=== PATIENT | female | born 1940 | race Caucasian/White ===

== ENCOUNTER → 2024-01-12 08:01 | Outpatient (REF) | payer MEDICARE, SELFPAY ==
[2024-01-12 11:39] LABS: % Basophils 1.3 % (0-2); % Eosinophils 5.6 % (0-6); % Immature Granulocytes 0.4 % (0-0.5); % Lymphocytes 28.6 % (20.5-51.1); % Monocytes 13.6 % (1.7-9.3); % Neutrophils 50.5 % (42.2-75.2); Absolute Basophils 0.1 10^3/uL (0-0.2); Absolute Eosinophils 0.3 10^3/uL (0-0.7); Absolute Lymphocytes 1.3 10^3/uL (1.2-3.4); Absolute Monocytes 0.6 10^3/uL (0.1-0.6); Absolute Neutrophils 2.3 10^3/uL (1.4-6.5); Hematocrit 38.8 % (37.0-47.0); Hemoglobin 12.6 g/dL (12.0-16.0); Mean Corp Hgb Conc. 32.5 g/dL (33.0-37.0); Mean Corpuscular Hgb 33.7 pg (27.0-31.0); Mean Corpuscular Volume 103.7 fL (81.0-99.0); Mean Platelet Volume 10.8 fL (7.4-10.4); Nucleated Red Blood Cells % 0 %; Platelet Count 158 10^3/uL (130-400); Red Blood Cell Count 3.74 10^6/uL (4.20-5.40); Red Cell Dist. Width 12.8 % (11.5-14.5); White Blood Cell Count 4.5 10^3/uL (4.8-10.8)
[2024-01-12 11:54] LABS: ALT (SGPT) < 10 U/L (0-35); AST (SGOT) 20 U/L (14-36); Alkaline Phosphatase 69 U/L (38-126); Blood Urea Nitrogen 22 mg/dl (7-17); Calcium 9.4 mg/dl (8.4-10.2); Carbon Dioxide 27 mmol/L (22-30); Chloride 102 mmol/L (98-107); Glucose 97 mg/dl (70-99); HDL Cholesterol 51 mg/dl; LDL Cholesterol, Calculated 47 mg/dl; Potassium 4.3 mmol/L (3.5-5.1); Sodium 138 mmol/L (135-145); Total Bilirubin 0.8 mg/dl (0.2-1.3); Total Cholesterol 117 mg/dl (50-199); Total Protein 6.9 g/dl (6.3-8.2); Triglyceride 98 mg/dl (10-149); Very Low Density Lipoprotein 19 mg/dl (0-30); eGFR 56.25
[2024-01-12 12:29] LABS: Glycohemoglobin (HgbA1c) 5.7 % (4.0-5.6)
== END ==
LOC: HWLAB 08:01
PROVIDERS: ATTENDING PHYSICIAN Emergency Medicine
DX: E05.00 Thyrotoxicosis with diffuse goiter without thyrotoxic crisis or storm (principal); I44.7 Left bundle-branch block, unspecified; J44.9 Chronic obstructive pulmonary disease, unspecified; E78.00 Pure hypercholesterolemia, unspecified; I50.32 Chronic diastolic (congestive) heart failure; M85.80 Other specified disorders of bone density and structure, unspecified site; I25.10 Atherosclerotic heart disease of native coronary artery without angina pectoris
CPT/HCPCS: 36415; 80053; 80061; 83036; 85025

== ENCOUNTER → 2024-05-05 10:17 | Outpatient (REF) | payer MEDICARE, SELFPAY ==
[2024-05-05 12:46] LABS: Free T4 1.16 ng/dl (0.78-2.19)
[2024-05-05 12:53] LABS: TSH 3.36 uIU/ml (0.47-4.68)
== END ==
LOC: HWRAD 10:17
PROVIDERS: ATTENDING PHYSICIAN Internal Medicine Endocrinology, Diabetes & Metabolism; FAMILY PHYSICIAN Emergency Medicine
DX: E04.2 Nontoxic multinodular goiter (principal)
CPT/HCPCS: 36415; 76536; 84439; 84443

== ENCOUNTER 2024-07-13 18:14 | Inpatient (IN) | payer MEDICARE, SELFPAY ==
[2024-07-13] VITALS (8 sets, daily range): BP systolic 100–172; BP diastolic 71–107; BMI 22.0; BMI 20.9
[2024-07-13 14:50] LABS: % Basophils 0.8 % (0-2); % Eosinophils 5.2 % (0-6); % Immature Granulocytes 0.4 % (0-0.5); % Lymphocytes 20.7 % (20.5-51.1); % Monocytes 14.1 % (1.7-9.3); % Neutrophils 58.8 % (42.2-75.2); Absolute Eosinophils 0.3 10^3/uL (0-0.7); Absolute Lymphocytes 1.1 10^3/uL (1.2-3.4); Absolute Monocytes 0.7 10^3/uL (0.1-0.6); Absolute Neutrophils 3.1 10^3/uL (1.4-6.5); Hematocrit 36.1 % (37.0-47.0); Hemoglobin 11.9 g/dL (12.0-16.0); Mean Corpuscular Hgb 33.6 pg (27.0-31.0); Mean Platelet Volume 9.9 fL (7.4-10.4); Nucleated Red Blood Cells % 0 %; Platelet Count 201 10^3/uL (130-400); Red Blood Cell Count 3.54 10^6/uL (4.20-5.40); Red Cell Dist. Width 12.4 % (11.5-14.5); White Blood Cell Count 5.2 10^3/uL (4.8-10.8)
[2024-07-13 15:27] LABS: ALT (SGPT) < 10 U/L (0-35); AST (SGOT) 19 U/L (14-36); Albumin 3.5 g/dl (3.5-5.0); Alkaline Phosphatase 68 U/L (38-126); Blood Urea Nitrogen 15 mg/dl (7-17); Calcium 8.8 mg/dl (8.4-10.2); Carbon Dioxide 28 mmol/L (22-30); Chloride 97 mmol/L (98-107); Estimated Creatinine Clearance 51 ml/min; Glucose 121 mg/dl (70-99); Potassium 3.6 mmol/L (3.5-5.1); Sodium 136 mmol/L (135-145); Total Bilirubin 0.5 mg/dl (0.2-1.3); Total Protein 6.4 g/dl (6.3-8.2); eGFR > 60.00
--- NOTE | 2024-07-13 15:39 | ED.GENMED ---
History of Present Illness
General
Chief Complaint: Breathing Problem
Source: patient
Exam Limitations: none
Time Seen by Provider: 07/13/24 15:08
Nursing documentation reviewed up to this point in time: agreed with
History of Present Illness
History of Present Illness:
Patient to ED with complaint of increasing SOB. States symptoms started approx 3 weeks ago. SHe was seen in office of PCP and treated for pneumonia. Was placed on amoxicillin and mucinex. Finished antibiotic on wednesday but notes not improvement
in her symptoms. Reports weakness, Dyspnea with minimal activity. Denies fever/chills. Called PCP today but was told there were no appointments available, advised to come to ED. Brought to ED by neighbor for eval.
Past History
Past History
ED Past Medical History: Arrthythmia (Atrial fib), COPD, GERD, HTN, Hypercholesterolemia, Hypothyroidism, Other (Nasal polyps, sinusitis, asthma, ischemic colitis, DVT,) and Other (Patient has a history of chronic bronchitis, she is an ex-smoker, as
to gastroenteritis, stress incontinence, arthritis, and impaired vision, depression, and deviated septum, as well as fluid retention, history of neuropathy, and iron allergies. )
ED Past Surgical History: None
Social History
Tobacco: Former smoker
Alcohol: Occasional
Personal:
Living: alone
Employment: Retired
Review of Systems
Review of Systems
Allergies reviewed?: Yes
All Other Systems: ROS reviewed and negative except as documented in HPI and ROS
Constitutional: Reports fatigue
EENT: Reports no symptoms
Respiratory: Reports cough and trouble breathing
Cardiac: Reports no symptoms
ABD/GI: Reports no symptoms
: Reports no symptoms
Musculoskeletal: Reports no symptoms
Skin: Reports no symptoms
Neurological: Reports weakness
Psychiatric: Reports no symptoms
Phy Exam
General Physical Exam
General Presentation: moderate distress
General age: appears stated age
General Skin: warm and dry
General Habitus: normal
General Mental: alert
Cardiovascular Exam
Cardiovascular Exam: irregularly irregular (chronic afib)
Pulmonary Exam
Pulmonary Exam: decreased breath sounds
Respiratory Effort: tachypnea
Gastrointestinal Exam
Gastrointestinal Exam: normal bowel sounds, non tender and soft
Musculoskeletal Exam
Musculoskeletal Exam: full ROM and neuro vasc intact
Skin Exam
Skin Exam: normal color, warm/dry and no rash
Psychiatric Exam
Psychiatric Exam: normal mood/affect
Scores
Heart Failure Risk
Heart Failure Risk Score: Not Applicable
Course
Orders/Labs/Results
Orders:
Orders
07/13/24 14:26
Electrocardiogram (*1) Urgent
Reason for Study: Shortness of Breath
07/13/24 14:27
EKG- Treatment ONCE
07/13/24 14:42
CMP [Comprehensive Metabolic Panel] Urgent
Complete Blood Count/With Diff Urgent
Lipase Urgent
Comment: ADD ON
07/13/24 14:44
CXR2 [CR Chest - 2 Views ] Urgent
Comment:
Reason For Exam: SOB
07/13/24 Dinner
Cholesterol Lowering
At Your Request: Full Participation
Fluid Restriction: 1440 mL/day (48 oz)
Cholesterol Lowering: Sodium, 2 Gram
07/13/24 15:22
Add On- LAB Urgent
Tests Added?: lipase
07/13/24 15:43
Ipratropium/Albuterol Sulfate [Duoneb] 3 ml INH R NOW STA
07/13/24 15:49
COVID-19 Antigen Urgent
Source: Nasal Swab
Influenza A+B Rapid Molecular Urgent
NUNO Source: Nasal Swab
Specimen Description:
07/13/24 16:03
Azithromycin [Zithromax] 500 mg PO NOW STA
CefTRIAXone [Rocephin] 1,000 mg IV NOW STA
07/13/24 17:51
Furosemide [Lasix] 40 mg IV NOW STA
Potassium Chloride [KCl] 40 meq PO NOW STA
07/13/24 17:56
Admit/Transfer Patient As Directed
Co-Sign Provider:
Level of Care: Inpatient admission
Assign to:: Telemetry
Physician / Group: Lyudmila Wilson
Diagnosis: heart failure, pneumonia
Reason for Telemetry: Pulmonary Edema
Date to Stop Telemetry: 07/16/24
Time to Stop Telemetry: 11:00
Reason for Hospitalization: heart failure, pneumonia
Expected length of stay greater than two midnights?: Yes
ELOS- Estimated Length of Stay in days: 3
I certify the patient meets the requirements for IP care: Yes
PRN Pain Medication Management As Directed
May give lesser potent ordered pain med per pt: Yes
preference::
Protocol:: Medication orders for pain may be administered in a
manner that supports deferring to patient preference
when the pt is:
- Requesting an ordered lesser potent pain medication.
Least to most potent pain medications are defined
as: acetaminophen < NSAID < tramadol < opioids
(morphine, oxycodone, hydromorphone).
- Requesting a lesser dose of the same medication IF
ORDERED.
- Requesting a less intrusive route of administration
if both routes are prescribed by the provider (PO <
IV).
07/13/24 17:57
Code Status As Directed
Resuscitation Status: Full Code
07/13/24 18:07
BNP [NT-proBNP] Urgent
Procalcitonin Routine
PCT Algorithmm Indication: Respiratory
Troponin I Urgent
07/13/24 18:47
Aspirin Low Dose EC [Aspir Low (Enteric Coated)] 81 mg PO QPM
Bisacodyl [Dulcolax] 10 mg RECTAL [id number] PRN
Docusate W/Senna [Senokot-S] 1 tablet PO BIDPRN PRN
Ipratropium/Albuterol Sulfate [Duoneb] 3 ml INH R Q4HPRN PRN
Polyethylene Glycol Powder [Miralax] 17 grams PO DAILYPRN PRN
07/13/24 18:47
HF DIETARY CONSULT Routine
HF EDUCATOR CONSULT Routine
Comment:
Activity As Directed
Activity Level: As Tolerated
Intake/ Output As Directed
Frequency: Per unit guidelines
Patient Education As Directed
Type: CHF folder
Comment: give on admission. Document in Interdisciplinary Education record
Sleep Apnea Assessment by RN As Directed
Comment:
Physician Instructions:
Vital Signs As Directed
Frequency: Other
Additional Instructions:: Q12 or per unit guidelines if more frequent.
Weight As Directed
Frequency: Daily
Type of Scale: Standing Scale
Comment: Daily morning weight. If unable to stand, use balanced bed scale.
Weight As Directed
Frequency: Once
Type of Scale: Standing Scale
Comment: Upon Admission. If unable to stand, use balanced bed scale.
Acapella [Rx Pep / Acapela] [RESP] Routine
Pulse Ox/cont/shift [RESP] Routine
Quantity: 1
Special Instructions: Daily pulse oximetry at rest. If greater than 92% at rest also obtain pulse oximetry
while ambulating as tolerated.
07/13/24 20:00
Apixaban [Eliquis] 5 mg PO BID
Carvedilol [Coreg] 3.125 mg PO BID
Guaifenesin [Mucinex] 600 mg PO Q12
Ipratropium/Albuterol Sulfate [Duoneb] 3 ml INH R QID
07/13/24 22:00
Losartan [Cozaar] 50 mg PO HS
07/14/24 00:00
Acetaminophen [Tylenol] 650 mg PO Q6
07/14/24 06:00
Echo 2D MMode Color/Doppler IN AM
Reason for Study: heart failure
Basic Metabolic Panel IN AM
Cardiovascular Evaluation IN AM
Complete Blood Count/No Diff IN AM
Magnesium IN AM
TSH IN AM
07/14/24 08:00
Atorvastatin [Lipitor] 40 mg PO DAILY
Furosemide [Lasix] 40 mg IV DAILY
07/14/24 16:00
Azithromycin [Zithromax] 500 mg PO DAILY@1600
CefTRIAXone [Rocephin] 1,000 mg IV DAILY@1600
07/15/24 06:00
Basic Metabolic Panel IN AM
07/16/24 06:00
Basic Metabolic Panel IN AM
07/16/24 11:00
DC Protocol for Telemetry ONCE
Abnormal Lab Results
07/13/24
14:42
RBC 3.54 L 10^6/uL
(4.20-5.40)
Hgb 11.9 L g/dL
(12.0-16.0)
Hct 36.1 L %
(37.0-47.0)
MCV 102.0 H fL
(81.0-99.0)
MCH 33.6 H pg
(27.0-31.0)
Absolute Lymphs (auto) 1.1 L 10^3/uL
(1.2-3.4)
Absolute Monos (auto) 0.7 H 10^3/uL
(0.1-0.6)
Monocytes % 14.1 H %
(1.7-9.3)
Chloride 97 L mmol/L
(98-107)
Glucose 121 H mg/dl
(70-99)
07/13/24 14:42
07/13/24 14:42
Vital Signs
Initial and Last Documented VS:
Initial Vital Signs
Temp Pulse Resp BP Pulse Ox
97.6 F 77 24 149/91 98
07/13/24 14:08 07/13/24 14:08 07/13/24 14:08 07/13/24 14:08 07/13/24 14:08
Last Documented Vital Signs
Temp Pulse Resp BP Pulse Ox
97.5 F 86 18 172/107 91
07/13/24 19:55 07/13/24 19:55 07/13/24 19:55 07/13/24 19:55 07/13/24 20:00
MDM/Problems Addressed
Differential Diagnosis Includes:
Patient to ED with complaint of SOB, BAUTISTA with minimal activity. Treated for pneumonia 1.5 weeks ago with amoxicillin without improvement. CXR reviewed - suspect RLL pneumonia. Overall, lungs sounds are decreased. Given Duoneb. Pulse ox 94% RA at
rest, 84% with activity. Afebrile. Will admit to hospitalists service. Ceftriaxone, azithromycin given in dept.
*Radiology
Radiology exam reviewed: radiology read reviewed
*Pulse Oximetry
Patient hypoxic: yes
Comment: 84% RA with ambulation
*Critical Care Note
Total Time (30-74mins, 75-104mins- exclusive of procedures): Not Applicable
ED Attending Note
-
Portions of this chart may have been created with voice recognition software.� Occasional wrong word or��sound alike� substitutions may have occurred due to the inherent limitations of voice recognition software.
Discharge Plan
Departure
Patient Disposition: Admit
Date of Disposition: 07/13/24
Time of Disposition: 16:35
Presentation/result/management discussed w/ accepting MD/DO: Hospitalist
Condition: Fair
Covid-19: Negative COVID-19
Discharge Problem:
Pneumonia
Interventions
Interventions:
*Risk Screen - Suicide Last Done: 07/13/24 14:08
*General Assessment Last Done: 07/13/24 14:28
ED- Fall Risk Assessment Last Done: 07/13/24 14:28
*ED COVID-19 Vaccine History Last Done: 07/13/24 14:28
*Nursing Disposition Last Done: 07/13/24 18:41
ED- Cardiac Assessment Last Done: 07/13/24 14:28
ED- Pulmonary Assessment Last Done: 07/13/24 14:28
Discharge Date and Time
Discharge Date/Time: 07/13/24 18:41
[2024-07-13] MEDS: DUONEB 3 ML INH ×2 (15:49→19:31)
[2024-07-13] MEDS: ROCEPHIN 1000 MG IV (16:18)
[2024-07-13] MEDS: ZITHROMAX 500 MG PO (16:18)
[2024-07-13 16:21] LABS: COVID-19 Antigen Negative (Negative)
[2024-07-13 16:31] LABS: Lipase 56 U/L (23-300)
--- NOTE | 2024-07-13 17:24 | HPS.HSE ---
Addendum entered and electronically signed by Lyudmila Wilson MD 07/13/24 19:41:
procalcitonin negative - will stop antibiotics
Original Note:
Family Physician
-
Family Physician: Diana Bone MD
Chief Complaint
-
worsening shortness of breath
History of Present Illness
Ms. Earnestine Minor is a 83 yo woman with history of atrial fibrillation, COPD, GERD, essential HTN, HLD, HFrEF 40% (03/14); moderate MR, presents to the ER with 3 weeks of worsening shortness of breath. Patient was treated for pneumonia by PCP and
completed a course of Amoxicillin and Mucinex 2 days ago without improvement in symptoms.
Patient reports upper nasal congestion, does not report congestion in chest. She denies cough, reports significant shortness of breath especially with exertion. No chest pain. No fevers/chills. No nausea/vomiting/diarrhea. No abdominal pain or
LE swelling. She weighs herself daily and does not report weight gain.
She quit smoking 4 years ago. Reports the duonebs given in the ER helped her feel better.
Medical History
Past Medical History
Past Medical History: Reports Other (atrial fibrillation, COPD, GERD, essential HTN, HLD, Hypothyroidism)
Past Surgical History: Reports None
Social History
Tobacco: Non-smoker
Alcohol: Occasional
Family History
Family History: Not pertinent
Allergies / Home Medications
Allergies reflects when Allergies were last updated in [employer].
Home Medications with original date entered in [employer]
Allergy/Medication List:
Allergies
Allergy/AdvReac Type Severity Reaction Status Date / Time
No Known Allergies Allergy Verified 07/13/24 14:08
Home Medications
apixaban 5 mg tablet (Eliquis) 5 mg PO BID Blood clot prevention/tx 10/30/20
alendronate 70 mg tablet 70 mg PO SA osteoporosis 05/31/21
carvedilol 3.125 mg tablet 3.125 mg PO BID Blood pressure #60 tabs 07/30/21
furosemide 40 mg tablet 40 mg PO DAILY Fluid retention/Swelling #30 tabs 07/30/21
acetaminophen 650 mg tablet,extended release 1,300 mg PO BID 07/13/24
aspirin 81 mg tablet,delayed release 81 mg PO QPM 07/13/24
atorvastatin 40 mg tablet 40 mg PO DAILY High cholesterol 07/13/24
cholecalciferol (vitamin D3) 50 mcg (2,000 unit) tablet 50 mcg PO DAILY 07/13/24
losartan 50 mg tablet 50 mg PO HS 07/13/24
Review of Systems
-
History Source: Patient
A 12 point ROS was completed and negative except as noted: Yes
Physical Exam
Vital Signs
Vital Signs
Temp Pulse Resp BP Pulse Ox
97.6 F 84 20 128/74 91
07/13/24 14:08 07/13/24 16:45 07/13/24 16:45 07/13/24 17:00 07/13/24 16:45
Physical Exam
General: Other (mildly tachypenic)
HEENT: PERRLA
Respiratory: Rales (bibasilar); No Wheezes
Cardiac: S1/S2, Regular Rhythm and JVD
GI: Soft and Non Tender
Musculoskeletal: No Edema
Skin: Warm and Dry; No Rash
Neuro: AO x 3
Psych: Calm
Laboratory Results
-
07/13/24 14:42
07/13/24 14:42
Laboratory Results
Total Bilirubin 0.5 mg/dl (0.2-1.3) 07/13/24 14:42
AST 19 U/L (14-36) 07/13/24 14:42
ALT < 10 U/L (0-35) 07/13/24 14:42
Alkaline Phosphatase 68 U/L (38-126) 07/13/24 14:42
Lipase 56 U/L (23-300) 07/13/24 14:42
Data Reviewed
-
Diagnostic Radiology: Report Reviewed by me
Lab Data: Labs Reviewed by me
Impression/Plan
-
Ms. Earnestine Minor is a 83 yo woman with history of atrial fibrillation, COPD, GERD, essential HTN, HLD, HFrEF 40% (03/14); moderate MR, presents to the ER with 3 weeks of worsening shortness of breath. Patient was treated for pneumonia by PCP and
completed a course of Amoxicillin and Mucinex 2 days ago without improvement in symptoms. On exam patient has no wheezing, she appears to be fluid overloaded with elevated JVP.
Triage VS: T 97.6, P 77, RR 24, BP 149/91, SpO2 98%
LABS: WBC 5.2, Hg 11.9, PLT 201, Na 136, K+ 3.6, Cl 97, CO2 28, BUN 15, Cr 0.8, Glucose 121, Ca 8.8, liver enzymes WNL
covid negative
CXR
IMPRESSION:
Mild right basilar atelectasis and/or pneumonia. Cannot rule out component of underlying chronic interstitial lung disease.
MAR: -status post duonebs, Ceftriaxone and Azithromycin
Heart Failure with reduced EF, acute exacerbation
Moderate MR
-EF 40% TTE 03/14
-fluid overload suspect largest component contributing to symptoms of shortness of breath, likely triggered by recent viral or bacterial infection
-Lasix 40mg IV x 1 now and continue daily
-admit to telemetry
-TTE
-daily weights, strict I/O
-obtain BNP and Troponin
Community Acquired Pneumonia
-patient without WBC or fever; CXR with PNA versus atelectasis
-will continue coverage for CAP for now - Cef/Azithro
-will obtain procalcitonin; consider stopping antibiotics if negative
Atrial Fibrillation
-SHELL MAKER LOCKSTITCH Coreg, Eliquis
Essential Hyeprtension
-SHELL MAKER LOCKSTITCH Coreg, Losartan
COPD
-no wheezing currently heard on exam
-reports improvement with duonebs - continue standing duonebs and PRN, hold off on steroids for now
-mucinex, acapella
-patient does not have a Membership Sales Advisor - can be referred as outpatient
-quit smoking 1PPD 4 years ago
Hyperlipidemia
-SHELL MAKER LOCKSTITCH Statin
DVT PPx SHELL MAKER LOCKSTITCH Eliquis
FULL CODE
76 MINUTES spent on patient care
[2024-07-13] MEDS: KCL 40 MEQ PO (18:12)
[2024-07-13] MEDS: LASIX 40 MG IV (18:12)
[2024-07-13 18:46] LABS: NT-proBNP 4690 pg/ml; Troponin I < 0.012 ng/ml
[2024-07-13 18:49] LABS: Procalcitonin < 0.05 ng/ml (0.0-0.25)
--- NOTE | 2024-07-13 20:00 | PTCARENOTE ---
Pt arrived from the ED via stretcher. Pt AAOx3, VSS. BP elevated. Pt on RA, O2 sat 91%. C/o SOB. Respiratory aware, came and gave treatment. Pt on purewick due to SOB, pt usually ambulates using a cane. Pt oriented to the room, call martinez is within
reach.
[2024-07-13] MEDS: ASPIR LOW (ENTERIC COATED) 81 MG PO (20:25)
[2024-07-13] MEDS: COREG 3.125 MG PO (20:25)
[2024-07-13] MEDS: ELIQUIS 5 MG PO (20:25)
[2024-07-13] MEDS: MUCINEX 600 MG PO (20:25)
[2024-07-13] MEDS: COZAAR 50 MG PO (20:26)
[2024-07-13] MEDS: TYLENOL 650 MG PO (23:00)
[2024-07-14 03:19] VITALS: BP 124/74
[2024-07-14] MEDS: TYLENOL 650 MG PO ×4 (06:11→23:38)
[2024-07-14 06:40] VITALS: BMI 20.1
[2024-07-14 07:05] VITALS: BP 119/67
[2024-07-14] MEDS: DUONEB 3 ML INH ×3 (07:25→19:31)
--- NOTE | 2024-07-14 07:59 | W.PN.HOSP.TC ---
Addendum entered and electronically signed by [place] Edgar MD 07/14/24 15:35:
I saw and evaluated the patient independently. I reviewed the resident�s note and agree with findings and plan as documented by Dr. Jorgensen.
GENERAL: well developed, well nourished, female in no apparent distress
HEENT: NC/AT--no O2 requirements
HEART: irreg irreg
LUNGS : clear to auscultation bilaterally anteriorly
ABDOM: soft, nontender, nondistended, + bowel sounds
EXT: no cyanosis, clubbing, or edema
NEUROLOGIC: grossly intact
Acute exacerbation of heart failure with reduced ejection fraction--last echo was 40% 02/2023--cont IV lasix--await repeat echo--hold on cards eval for now--Continue daily weights, strict ins and outs
Paroxysmal Atrial fibrillation--Continue Coreg and Eliquis
Essential hypertension--Continue Coreg and losartan
COPD without acute exacerbation--History of smoking--No wheezing, continue DuoNebs as needed--outpt pulm f/u
Hyperlipidemia--Continue statin
DVT prophylaxis-- Eliquis
code status --Full code
Original Note:
Today's Communication/Plan
-
.
Assessment / Plan
Assessment / Plan
83-year-old female with past medical history of atrial fibrillation, COPD, GERD, essential HTN, HLD, HFrEF 40% (03/14), moderate MR, presented to [facility] for 3 weeks of progressive shortness of breath.
#Acute exacerbation of heart failure with reduced ejection fraction
Ejection fraction 40% in February 2023
Suspect fluid overload, continue Lasix 40 mg IV once daily
Pending echo today
Continue daily weights, strict ins and outs
#Suspected community-acquired pneumonia
Patient without leukocytosis or fever, chest x-ray questions pneumonia versus atelectasis
Procalcitonin negative, stop antibiotics
#Atrial fibrillation
Continue Coreg and Eliquis
#Essential hypertension
Continue Coreg and losartan
#COPD
History of smoking
No wheezing, continue DuoNebs as needed
Refer outpatient to pulmonology
#Hyperlipidemia
Continue statin
DVT prophylaxis Eliquis
Full code
Anticipated Discharge: 24 - 48 hours
Subjective/Interval History
-
Date of Service: July 14, 2024
83-year-old female with past medical history of atrial fibrillation, COPD, GERD, essential HTN, HLD, HFrEF 40% (03/14), moderate MR, presented to [facility] for 3 weeks of progressive shortness of breath. Patient recently was treated for
pneumonia with course of amoxicillin without improvement of symptoms. Patient has a history of smoking, stopped 4 years ago. In the ER she was given DuoNebs, which improved her times. Procalcitonin was negative so antibiotics were stopped. She
reports mildly improved shortness of breath, without fever, nausea, vomiting, diarrhea. She states she has a chronic cough which has not changed since onset of symptoms.
Objective Data
-
Labs:
Laboratory Results
07/14/24
07:53
WBC Pending
Hgb Pending
Hct Pending
Plt Count Pending
Sodium Pending
Potassium Pending
Chloride Pending
Carbon Dioxide Pending
BUN Pending
Creatinine Pending
Glucose Pending
Calcium Pending
Vital Signs:
Vital Signs
Temp Pulse Resp BP Pulse Ox
97.9 F 74 16 119/67 91
07/14/24 07:05 07/14/24 07:28 07/14/24 07:28 07/14/24 07:05 07/14/24 07:28
I&O
07/13/24 07/14/24 07/15/24
06:59 06:59 06:59
Intake Total 480 / 480
Output Total 1700 / 1700
Balance -1220 / -1220
Review of Systems
-
History Source: Patient
Constitutional: Reports No Symptoms
EENT: Reports No Symptoms Reported
Respiratory: Reports Cough and Trouble Breathing
Cardiac: Reports No Symptoms
Abdomen/GI: Reports No Symptoms
Genitourinary: Reports No Symptoms
Physical Exam
-
General: Well Developed, Well Nourished, No Apparent Distress, Comfortable and Conversant
HEENT: Normocephalic and Atraumatic
Respiratory: Decreased Breath Sounds
Cardiac: S1/S2 and Irregular Rhythm
GI: Soft, Nontender, Nondistended and Normal Bowel Sounds
Skin: Warm and Dry
Neuro: AO x 3
Psych: Calm
Data Reviewed
-
CT Scan: Report Reviewed by me
Labs: Labs Reviewed by me and Discussed with Physician
Old Records: Reviewed
[2024-07-14 08:04] LABS: Hematocrit 38.3 % (37.0-47.0); Hemoglobin 12.6 g/dL (12.0-16.0); Mean Corp Hgb Conc. 32.9 g/dL (33.0-37.0); Mean Corpuscular Hgb 33.3 pg (27.0-31.0); Mean Corpuscular Volume 101.3 fL (81.0-99.0); Platelet Count 184 10^3/uL (130-400); Red Blood Cell Count 3.78 10^6/uL (4.20-5.40); Red Cell Dist. Width 12.5 % (11.5-14.5); White Blood Cell Count 5.9 10^3/uL (4.8-10.8)
[2024-07-14] MEDS: COREG 3.125 MG PO ×2 (08:20→19:59)
[2024-07-14] MEDS: LIPITOR 40 MG PO (08:20)
[2024-07-14] MEDS: ELIQUIS 5 MG PO ×2 (08:20→19:59)
[2024-07-14] MEDS: LASIX 40 MG IV (08:20)
[2024-07-14] MEDS: MUCINEX 600 MG PO ×2 (08:20→19:59)
[2024-07-14] MEDS: FLUSH (NSS) 1 FLUSH IV (08:20)
[2024-07-14 08:36] LABS: Blood Urea Nitrogen 16 mg/dl (7-17); Calcium 8.8 mg/dl (8.4-10.2); Carbon Dioxide 26 mmol/L (22-30); Chloride 101 mmol/L (98-107); Estimated Creatinine Clearance 43 ml/min; Glucose 98 mg/dl (70-99); HDL Cholesterol 37 mg/dl; LDL Cholesterol, Calculated 45 mg/dl; Magnesium 2.3 mg/dl (1.6-2.3); Potassium 4.3 mmol/L (3.5-5.1); Sodium 137 mmol/L (135-145); Total Cholesterol 102 mg/dl (50-199); Triglyceride 102 mg/dl (10-149); Very Low Density Lipoprotein 20 mg/dl (0-30); eGFR > 60.00
[2024-07-14 11:38] VITALS: BMI 20.1
[2024-07-14] MEDS: DUONEB INH (11:55)
[2024-07-14 15:15] VITALS: BP 120/82
--- NOTE | 2024-07-14 16:05 | PTCARENOTE ---
Pt AAO x3, LAU, OOB to BSC/transfer to stretcher with assist x 1/cane; sl unsteady w/OOB activity. No c/o weakness/dizziness. VSS. Telemetry:A fib with LBBB. On room air- pulse ox 99%, pt denies SOB; has occ loose cough- yellow mucus. Abd soft,
rounded, luis PO well. Voids on BSC/used Purewick in am. Resting in bed at present. Will continue to monitor.
[2024-07-14] MEDS: ASPIR LOW (ENTERIC COATED) 81 MG PO (17:39)
[2024-07-14 19:39] VITALS: BP 131/74
[2024-07-14] MEDS: COZAAR 50 MG PO (19:59)
[2024-07-14 23:54] VITALS: BP 100/62
[2024-07-15 03:26] VITALS: BP 106/64
[2024-07-15] MEDS: TYLENOL 650 MG PO ×4 (05:32→23:18)
[2024-07-15 06:32] LABS: Blood Urea Nitrogen 21 mg/dl (7-17); Calcium 8.9 mg/dl (8.4-10.2); Carbon Dioxide 28 mmol/L (22-30); Chloride 100 mmol/L (98-107); Estimated Creatinine Clearance 43 ml/min; Glucose 98 mg/dl (70-99); Sodium 138 mmol/L (135-145); eGFR > 60.00
[2024-07-15 07:23] VITALS: BP 129/78
[2024-07-15] MEDS: DUONEB 3 ML INH ×4 (07:50→18:33)
[2024-07-15] MEDS: LIPITOR 40 MG PO (08:52)
[2024-07-15] MEDS: LASIX 40 MG IV ×2 (08:52→18:12)
[2024-07-15] MEDS: COREG 3.125 MG PO (08:52)
[2024-07-15] MEDS: ELIQUIS 5 MG PO (08:52)
[2024-07-15] MEDS: MUCINEX 600 MG PO ×2 (08:52→20:37)
--- NOTE | 2024-07-15 11:38 | W.PN.HOSP.TC ---
Today's Communication/Plan
-
consult cards
Assessment / Plan
Assessment / Plan
Pt is an 83 year old female
Acute exacerbation of heart failure with reduced ejection fraction--last echo was 40% 02/2023--cont IV lasix-- repeat echo still with EF 35-40% no significant change--consult cards--Continue daily weights, strict ins and outs
Paroxysmal Atrial fibrillation--Continue Coreg and Eliquis--HR increases with movement--may need med adjustment
Essential hypertension--Continue Coreg and losartan
COPD without acute exacerbation--History of smoking--No wheezing, continue DuoNebs as needed--outpt pulm f/u
Hyperlipidemia--Continue statin
DVT prophylaxis-- Eliquis
code status --Full code
Anticipated Discharge: 24 - 48 hours
Subjective/Interval History
-
Date of Service: July 15, 2024
pt SOB and tachycardic with exertion
Objective Data
-
Labs:
Laboratory Results
07/15/24
05:37
Sodium 138
Potassium 4.0
Chloride 100
Carbon Dioxide 28
BUN 21 H
Creatinine 0.9
Glucose 98
Calcium 8.9
Vital Signs:
max temp for 24 hours
07/13/24
14:27 07/14/24
19:39 07/15/24
06:00
Temp 98.8 F
Actual Weight 61.7 kg 56.245 kg
Vital Signs
Temp Pulse Resp BP Pulse Ox
98.1 F 89 16 129/78 94
07/15/24 07:23 07/15/24 08:52 07/15/24 07:50 07/15/24 08:52 07/15/24 08:00
I&O
07/14/24 07/15/24 07/16/24
06:59 06:59 06:59
Intake Total 480 / 480 1380 / 1380
Output Total 1700 / 1700 300 / 300
Balance -1220 / -1220 1080 / 1080
Review of Systems
-
All other systems: Reviewed and negative
Respiratory: Reports Trouble Breathing
Cardiac: Reports Palpitations
Physical Exam
-
General: Well Developed, Well Nourished and No Apparent Distress
HEENT: Normocephalic and Atraumatic
Respiratory: Clear to Auscultation; Negative Wheezes or Rhonchi
Cardiac: Regular Rhythm, S1/S2 and Tachycardic
GI: Soft, Nontender, Nondistended and Normal Bowel Sounds
Musculoskeletal: No Clubbing, No Cyanosis and No Edema
Neuro: Awake and Alert
Psych: Calm
--- NOTE | 2024-07-15 11:39 | CON.CAR ---
Addendum entered and electronically signed by Donaldo Funes DO 07/15/24 13:22:
I saw and examined the patient.
The Shed Hand's note was reviewed and I agree with the note.
Comment:
Physical examination:
General: No acute distress, AAOX3
Neck: Negative JVD
Heart: Irregular irregular, Negative S3 positive S1/S2, Negative S4, No murmur
Lungs: Negative wheezes/rales/rhonchi
Abd: Positive BS, NT/ND, neg rebound/rigidity/guarding
Ext: Negative cyanosis/clubbing/edema
Neuro: nonfocal
Plan:
Increase Coreg for better rate control to 6.25 mg twice daily. The patient admits that she is going to the bathroom more often and that she is tachycardic at times walking to the bathroom. May opt to reduce Coreg back down to her outpatient dosing
prior to discharge pending clinical course. She has permanent atrial fibrillation.
Continue Eliquis, however, based on her age and weight of 56 kg, dose should be lowered to 2.5 mg twice daily.
Continue IV diuresis. Increase Lasix to 40 mg IV twice daily.
Her weight appears unchanged overnight. Creatinine remains stable.
Continue to monitor I's and O's and daily weights and creatinine.
Echo this admission unchanged from prior echo from July 2021.
Echo Jun 2024: EF 35 to 40%, moderate MR, moderate , mean gradient 13 mmHg, mild to moderate TR with pulmonary artery pressure 25 to 30 mmHg.
Will arrange outpatient follow-up with Dr. Mccord.
HPI: Earnestine is an 83 year old female with PMH chronic HFrEF, CAD status post LAD PCI 06/04/2021 with residual total occlusion of the RCA, , ischemic cardiomyopathy, hypertension, hyperlipidemia, permanent atrial fibrillation, LBBB, COPD, prior DVT,
Graves' disease, and neuropathy. She presented to ER for evaluation of worsening shortness of breath. She had been recently diagnosed with pneumonia by PCP and completed a course of amoxicillin and Mucinex 2 days prior to arrival without
improvement in her symptoms. Chest x-ray in ER with patchy opacities in the right lung, with procalcitonin <0.05. proBNP was elevated at 4690. She was admitted with acute heart failure and started on IV Lasix 40 mg daily. She also has history of
persistent/permanent atrial fibrillation and heart rates have been somewhat elevated intermittently during this hospitalization. Cardiology consulted for evaluation.
Original Note:
Consultation
Consultation Request
Date/Time Consultation Requested: 07/15/2024
Date/Time Consultation Performed: 07/15/2024
Requesting Provider: Dr. Edgar
Performing Provider: Dr. Funes
Reason for Consultation: CHF
Medical History
-
History of Present Illness:
HPI: Earnestine is an 83 year old female with PMH chronic HFrEF, CAD status post LAD PCI 06/04/2021 with residual total occlusion of the RCA, , ischemic cardiomyopathy, hypertension, hyperlipidemia, permanent atrial fibrillation, LBBB, COPD, prior DVT,
Graves' disease, and neuropathy. She presented to ER for evaluation of worsening shortness of breath. She had been recently diagnosed with pneumonia by PCP and completed a course of amoxicillin and Mucinex 2 days prior to arrival without
improvement in her symptoms. Chest x-ray in ER with patchy opacities in the right lung, with procalcitonin <0.05. proBNP was elevated at 4690. She was admitted with acute heart failure and started on IV Lasix 40 mg daily. She also has history of
persistent/permanent atrial fibrillation and heart rates have been somewhat elevated intermittently during this hospitalization. Cardiology consulted for evaluation.
PMH:
Chronic HFrEF
CAD
NSTEMI s/p urgent IABP and prox LAD PCI 06/04/21
residual total occlusion of the right coronary artery with complex tortuous disease in the distal circumflex
Moderate to severe aortic stenosis
Ischemic CM
Hypertension
Dyslipidemia
Permanent atrial fibrillation, diagnosed 03/2020
Eliquis anticoagulation [DVT and A. fib]
Chronic LBBB
COPD
History of DVT
History of Graves' disease
Neuropathy
History of mechanical fall with L1 compression fracture 10/2020
Past Medical History
Past Medical History: Other (In HPI)
Past Surgical History: Cardiac (LAD PCI 06/04/2021) and Other (Cataract surgery bilaterally)
Social History
Tobacco: Former Smoker
Alcohol: Occasional
Drug: None
Family History
Family History: Reviewed & Not Pertinent
Allergies / Home Medications
Allergy/AdvReac Type Severity Reaction Status Date / Time
No Known Allergies Allergy Verified 07/13/24 14:08
�Medication �Instructions �Recorded �Confirmed �Type
apixaban 5 mg tablet (Eliquis) 5 mg PO BID Blood clot 10/30/20 07/13/24 History
prevention/tx
alendronate 70 mg tablet 70 mg PO SA osteoporosis 05/31/21 07/13/24 History
carvedilol 3.125 mg tablet 3.125 mg PO BID Blood pressure #60 07/30/21 07/13/24 Rx
tabs
furosemide 40 mg tablet 40 mg PO DAILY Fluid 07/30/21 07/13/24 Rx
retention/Swelling #30 tabs
acetaminophen 650 mg 1,300 mg PO BID Pain 07/13/24 07/13/24 History
tablet,extended release
aspirin 81 mg tablet,delayed 81 mg PO QPM Blood Clot 07/13/24 07/13/24 History
release Prevention/Tx
atorvastatin 40 mg tablet 40 mg PO DAILY High cholesterol 07/13/24 07/13/24 History
cholecalciferol (vitamin D3) 50 50 mcg PO DAILY Supplement 07/13/24 07/13/24 History
mcg (2,000 unit) tablet
losartan 50 mg tablet 50 mg PO HS Blood Pressure 07/13/24 07/13/24 History
Review of Systems
-
History Source: Patient
All other systems: Negative unless noted
Physical Exam
Vital Signs
Temp Pulse Resp BP Pulse Ox
98.1 F 89 16 129/78 94
07/15/24 07:23 07/15/24 08:52 07/15/24 07:50 07/15/24 08:52 07/15/24 08:00
Lab Results
07/14/24 07:53
07/15/24 05:37
Troponin I < 0.012 ng/ml 07/13/24 18:07
Slm-N-Nlykmqvlbds Pept 4690 pg/ml 07/13/24 18:07
Impression / Plan
-
PCP: Dr. Bone
Cardiology: Dr. JERED Mccord
Impression:
Presented with SOB
Acute on chronic HFrEF
Recent pneumonia
CAD
NSTEMI s/p urgent IABP and prox LAD PCI 06/04/21
residual total occlusion of the right coronary artery with complex tortuous disease in the distal circumflex
Moderate to severe aortic stenosis
Ischemic CM
Hypertension
Dyslipidemia
Permanent atrial fibrillation, diagnosed 03/2020
Eliquis anticoagulation [DVT and A. fib]
Chronic LBBB
COPD
History of DVT
History of Graves' disease
Neuropathy
History of mechanical fall with L1 compression fracture 10/2020
ECHO 06/02/21: EF 35-40%, septal, mid to distal anterior and apical hypokinesis, asymmetric septal hypertrophy, stage II diastolic dysfunction, mitral annular calcification, moderate MR, thickened aortic valve with peak/mean gradients 25/11 mmHg,
NATALIA 1.1 cm�, moderate to severe , mild TR, PAP 35 mmHg
Echo 07/25/2021: Ejection fraction 35%, moderate aortic stenosis with mean pressure gradient of 11 mmHg and aortic valve area 1.0 cm, moderate MR
Echo 07/14/2024: EF 35 to 40%, MAC with moderate MR, moderate AAS with peak/mean gradient 9/13 mmHg, NATALIA 0.9 cm�, mild to moderate TR, estimated PAP 25 to 30 mmHg
Plan:
-Presented with worsening shortness of breath after recently being treated for pneumonia as outpatient. Admitted with acute heart failure exacerbation.
-Diuresing with IV Lasix 40 mg daily. Weight appears to be unchanged overnight, stable at 124lbs. Creat stable at 0.9.
-Will increase IV Lasix to 40 mg twice daily.
-Follow daily weights, I&O's.
-EKG reviewed, Afib w/ LBBB, HR 61 bpm.
-Known permanent atrial fibrillation, however heart rates have been elevated w/ activity. Will increase Coreg to 6.25 mg twice daily.
-On Eliquis 5mg BID as OP, however based on age 83 and weight 56 kg, should be on lower dose 2.5mg BID. Will decrease dose.
-Continue aspirin 81mg daily and lipitor 40mg daily
-Blood pressure stable. Continue losartan.
-TSH 3.30. K and mag stable.
HPI: Earnestine is an 83 year old female with PMH chronic HFrEF, CAD status post LAD PCI 06/04/2021 with residual total occlusion of the RCA, AAS, ischemic cardiomyopathy, hypertension, hyperlipidemia, permanent atrial fibrillation, LBBB, COPD, prior DVT,
Graves' disease, and neuropathy. She presented to ER for evaluation of worsening shortness of breath. She had been recently diagnosed with pneumonia by PCP and completed a course of amoxicillin and Mucinex 2 days prior to arrival without
improvement in her symptoms. Chest x-ray in ER with patchy opacities in the right lung, with procalcitonin <0.05. proBNP was elevated at 4690. She was admitted with acute heart failure and started on IV Lasix 40 mg daily. She also has history of
persistent/permanent atrial fibrillation and heart rates have been somewhat elevated intermittently during this hospitalization. Cardiology consulted for evaluation.
Data Reviewed
-
EKG: Tracing Personally Visualized and interpreted
Radiology: Report Reviewed by me
Labs: Labs Reviewed by me
Old Records: Reviewed
[2024-07-15 11:51] VITALS: BP 117/71
[2024-07-15 15:34] VITALS: BP 117/97
--- NOTE | 2024-07-15 15:51 | CM ---
Alert awake oriented patient who lives alone in a 2 story home with 4 steps to enter and 13 steps to bed/bathroom. She is independent in activates of daily living.She does not drive .She used a cane.Will need PT OT for dc plan.
No VN in past . No SNF hx
Pharmacy [facility]
PCP Dr Bone
PLAN Will need PT OT for dc plan. Requested order from
[2024-07-15] MEDS: ASPIR LOW (ENTERIC COATED) 81 MG PO (18:12)
[2024-07-15 19:39] VITALS: BP 131/73
[2024-07-15] MEDS: ELIQUIS 2.5 MG PO (20:36)
[2024-07-15] MEDS: COREG 6.25 MG PO (20:37)
[2024-07-15] MEDS: COZAAR 50 MG PO (23:18)
[2024-07-15 23:27] VITALS: BP 137/70
[2024-07-16 03:19] VITALS: BP 97/58
[2024-07-16] MEDS: TYLENOL 650 MG PO ×4 (05:31→23:54)
[2024-07-16 06:00] VITALS: BMI 19.5
[2024-07-16] MEDS: DUONEB 3 ML INH ×4 (07:17→19:25)
[2024-07-16 07:55] VITALS: BP 136/73
[2024-07-16 07:58] LABS: Blood Urea Nitrogen 22 mg/dl (7-17); Calcium 8.9 mg/dl (8.4-10.2); Carbon Dioxide 26 mmol/L (22-30); Chloride 100 mmol/L (98-107); Estimated Creatinine Clearance 42 ml/min; Glucose 100 mg/dl (70-99); Potassium 4.3 mmol/L (3.5-5.1); Sodium 139 mmol/L (135-145); eGFR > 60.00
[2024-07-16] MEDS: ELIQUIS 2.5 MG PO ×2 (09:03→20:22)
[2024-07-16] MEDS: LASIX 40 MG IV ×2 (09:03→16:29)
[2024-07-16] MEDS: LIPITOR 40 MG PO (09:03)
[2024-07-16] MEDS: MUCINEX 600 MG PO ×2 (09:03→20:21)
[2024-07-16] MEDS: COREG 6.25 MG PO ×2 (09:03→20:22)
[2024-07-16] MEDS: FLUSH (NSS) 1 FLUSH IV ×2 (09:04→16:29)
[2024-07-16 10:02] VITALS: BMI 19.5
[2024-07-16 11:25] VITALS: BP 110/64
--- NOTE | 2024-07-16 11:26 | W.PN.CARDCBS ---
Today's Communication / Plan
-
HR improved with increased Coreg to 6.25 mg twice daily.
She has permanent atrial fibrillation.
Continue Eliquis, however, based on her age and weight of 56 kg, dose was lowered to 2.5 mg twice daily this admit.
Continue IV diuresis. Lasix increased to 40 mg IV twice daily.
Her weight is coming down with increased lasix. Creatinine remains stable.
Continue to monitor I's and O's and daily weights and creatinine.
Hopeful transition to oral lasix next 24 hrs.
Echo this admission unchanged from prior echo from July 2021.
Echo Jun 2024: EF 35 to 40%, moderate MR, moderate , mean gradient 13 mmHg, mild to moderate TR with pulmonary artery pressure 25 to 30 mmHg.
Cont ASA and Lipitor for hx CAD
Will arrange outpatient follow-up with Dr. Mccord.
Impression / Plan
-
.
PCP: Dr. Bone
Cardiology: Dr. JERED Mccord
Impression:
Presented with SOB
Acute on chronic HFrEF
Recent pneumonia
CAD
NSTEMI s/p urgent IABP and prox LAD PCI 06/04/21
residual total occlusion of the right coronary artery with complex tortuous disease in the distal circumflex
Moderate to severe aortic stenosis
Ischemic CM
Hypertension
Dyslipidemia
Permanent atrial fibrillation, diagnosed 03/2020
Eliquis anticoagulation [DVT and A. fib]
Chronic LBBB
COPD
History of DVT
History of Graves' disease
Neuropathy
History of mechanical fall with L1 compression fracture 10/2020
ECHO 06/02/21: EF 35-40%, septal, mid to distal anterior and apical hypokinesis, asymmetric septal hypertrophy, stage II diastolic dysfunction, mitral annular calcification, moderate MR, thickened aortic valve with peak/mean gradients 25/11 mmHg,
NATALIA 1.1 cm�, moderate to severe , mild TR, PAP 35 mmHg
Echo 07/25/2021: Ejection fraction 35%, moderate aortic stenosis with mean pressure gradient of 11 mmHg and aortic valve area 1.0 cm, moderate MR
Echo 07/14/2024: EF 35 to 40%, MAC with moderate MR, moderate AAS with peak/mean gradient 9/13 mmHg, NATALIA 0.9 cm�, mild to moderate TR, estimated PAP 25 to 30 mmHg
Plan:
HR improved with increased Coreg to 6.25 mg twice daily.
She has permanent atrial fibrillation.
Continue Eliquis, however, based on her age and weight of 56 kg, dose was lowered to 2.5 mg twice daily this admit.
Continue IV diuresis. Lasix increased to 40 mg IV twice daily.
Her weight is coming down with increased lasix. Creatinine remains stable.
Continue to monitor I's and O's and daily weights and creatinine.
Hopeful transition to oral lasix next 24 hrs.
Echo this admission unchanged from prior echo from July 2021.
Echo Jun 2024: EF 35 to 40%, moderate MR, moderate , mean gradient 13 mmHg, mild to moderate TR with pulmonary artery pressure 25 to 30 mmHg.
Cont ASA and Lipitor for hx CAD
Will arrange outpatient follow-up with Dr. Mccord.
Discussed with nursing.
HPI: Earnestine is an 83 year old female with PMH chronic HFrEF, CAD status post LAD PCI 06/04/2021 with residual total occlusion of the RCA, AAS, ischemic cardiomyopathy, hypertension, hyperlipidemia, permanent atrial fibrillation, LBBB, COPD, prior DVT,
Graves' disease, and neuropathy. She presented to ER for evaluation of worsening shortness of breath. She had been recently diagnosed with pneumonia by PCP and completed a course of amoxicillin and Mucinex 2 days prior to arrival without
improvement in her symptoms. Chest x-ray in ER with patchy opacities in the right lung, with procalcitonin <0.05. proBNP was elevated at 4690. She was admitted with acute heart failure and started on IV Lasix 40 mg daily. She also has history of
persistent/permanent atrial fibrillation and heart rates have been somewhat elevated intermittently during this hospitalization. Cardiology consulted for evaluation.
Progress Note - Ct Technician
Subjective
Date of Service: July 16, 2024
Pt seen and examined. No complaints. No chest pain or shortness of breath.
Objective
Labs:
07/14/24 07:53
07/16/24 06:33
Labs
Hgb 12.6 g/dL (12.0-16.0) 07/14/24 07:53
Hct 38.3 % (37.0-47.0) 07/14/24 07:53
Plt Count 184 10^3/uL (130-400) 07/14/24 07:53
Sodium 139 mmol/L (135-145) 07/16/24 06:33
Potassium 4.3 mmol/L (3.5-5.1) 07/16/24 06:33
BUN 22 mg/dl (7-17) H 07/16/24 06:33
Creatinine 0.9 mg/dL (0.6-1.0) 07/16/24 06:33
Glucose 100 mg/dl (70-99) H 07/16/24 06:33
Troponins
07/13/24
18:07
Troponin I < 0.012
Vital Signs and I&O:
Vital Signs
Temp Pulse Resp BP Pulse Ox
97.5 F 72 16 110/64 91
07/16/24 11:25 07/16/24 11:25 07/16/24 11:25 07/16/24 11:25 07/16/24 11:25
Vital Signs
Temp Pulse Resp BP Pulse Ox
97.5 F 72 16 110/64 91
07/16/24 11:25 07/16/24 11:25 07/16/24 11:25 07/16/24 11:25 07/16/24 11:25
Intake & Output
07/14/24 07/15/24 07/16/24 07/17/24
06:59 06:59 06:59 06:59
Intake Total 480 / 480 1380 / 1380 1200 / 1200
Output Total 1700 / 1700 300 / 300
Balance -1220 / -1220 1080 / 1080 1200 / 1200
Physical Exam
Physical Exam
General: No acute distress, AAOX3
Neck: Negative JVD
Heart: Irregular irregular, Negative S3 positive S1/S2, Negative S4, No murmur
Lungs: CTA b/l, negative wheezes/rales/rhonchi
Abd: Positive BS, NT/ND, neg rebound/rigidity/guarding
Ext: Negative cyanosis/clubbing/edema
Neuro: nonfocal
--- NOTE | 2024-07-16 14:53 | W.PN.HOSP.TC ---
Today's Communication/Plan
-
hopeful transition to oral meds and d/c tomorrow
Assessment / Plan
Assessment / Plan
Pt is an 83 year old female
Acute exacerbation of heart failure with reduced ejection fraction--last echo was 40% 02/2023--cont IV lasix-- repeat echo still with EF 35-40% no significant change--apprec cards, hopeful change to oral diuretics and d/c tomorrow--Continue daily
weights, strict ins and outs
Paroxysmal Atrial fibrillation--Continue Coreg and Eliquis--HR increases with movement--may need med adjustment
Essential hypertension--Continue Coreg and losartan with parameters
COPD without acute exacerbation--History of smoking--No wheezing, continue DuoNebs as needed--outpt pulm f/u
Hyperlipidemia--Continue statin
DVT prophylaxis-- Eliquis
code status --Full code
Anticipated Discharge: Within 24 hours
Subjective/Interval History
-
Date of Service: July 16, 2024
pt feeling better--has said she hasn't weighed this low in a long time
Objective Data
-
Labs:
Laboratory Results
07/16/24
06:33
Sodium 139
Potassium 4.3
Chloride 100
Carbon Dioxide 26
BUN 22 H
Creatinine 0.9
Glucose 100 H
Calcium 8.9
Vital Signs:
max temp for 24 hours
07/13/24
14:27 07/15/24
23:27 07/16/24
06:00
Temp 98.3 F
Actual Weight 61.7 kg 54.885 kg
Vital Signs
Temp Pulse Resp BP Pulse Ox
97.5 F 72 16 110/64 91
07/16/24 11:25 07/16/24 11:25 07/16/24 11:25 07/16/24 11:25 07/16/24 11:25
I&O
07/15/24 07/16/24 07/17/24
06:59 06:59 06:59
Intake Total 1380 / 1380 1200 / 1200
Output Total 300 / 300
Balance 1080 / 1080 1200 / 1200
Review of Systems
-
All other systems: Reviewed and negative
Physical Exam
-
General: Well Developed, Well Nourished and No Apparent Distress
HEENT: Normocephalic and Atraumatic; Negative Oxygen
Respiratory: Clear to Auscultation and Wheezes; Negative Rhonchi
Cardiac: Regular Rhythm and S1/S2; Negative Murmur
GI: Soft, Nontender, Nondistended and Normal Bowel Sounds
Musculoskeletal: No Clubbing, No Cyanosis and No Edema
Skin: Warm and Dry
Neuro: Awake and Alert
Psych: Calm
[2024-07-16 15:00] VITALS: BP 126/61
--- NOTE | 2024-07-16 16:12 | PTCARENOTE ---
Pt AAO x3, LAU; OOB to BR, luis well, no c/o weakness/dizziness. VSS. Telemetry:A fib. On room air- pulse ox 99%, pt with slight BAUTISTA at times; denies SOB. Abd soft, rounded, luis PO well. Voiding in BR; instructed pt on importance of monitoring
output; pt stated that housekeeping has thrown out 2 specipans today. Resting in bed at present, no c/o. Will continue to monitor.
[2024-07-16] MEDS: ASPIR LOW (ENTERIC COATED) 81 MG PO (18:00)
[2024-07-16 19:54] VITALS: BP 147/81
[2024-07-16] MEDS: COZAAR 50 MG PO (20:21)
[2024-07-16 23:30] VITALS: BP 107/82
[2024-07-17 03:31] VITALS: BP 118/52
[2024-07-17] MEDS: TYLENOL 650 MG PO ×2 (05:42→11:58)
[2024-07-17 06:00] VITALS: BMI 20.1
[2024-07-17] MEDS: DUONEB 3 ML INH ×2 (07:18→11:15)
[2024-07-17 07:30] VITALS: BP 112/67
--- NOTE | 2024-07-17 07:48 | W.PN.HOSP.TC ---
Addendum entered and electronically signed by Clint Jorgensen DO, Resident 07/18/24 15:49:
Patient in permanent atrial fibrillation, anticoagulated on Eliquis. Patient's history shows atrial fibrillation for multiple years, not paroxysmal.
Original Note:
Today's Communication/Plan
-
discharge home today
Assessment / Plan
Assessment / Plan
83-year-old female with past medical history of atrial fibrillation, COPD, GERD, essential HTN, HLD, HFrEF 40% (03/14), moderate MR, presented to [facility] for 3 weeks of progressive shortness of breath.
#Acute exacerbation of heart failure with reduced ejection fraction
Ejection fraction 40% in February 2023, repeat echo showed no significant change
Suspect fluid overload, continue Lasix 40 mg IV once daily, transition to oral diuretics today (40 mg PO BID Lasix)
Continue daily weights, ins and outs
#Atrial fibrillation
Continue Coreg and Eliquis
#Essential hypertension
Continue Coreg and losartan
#COPD
History of smoking
No wheezing, continue DuoNebs as needed
Refer outpatient to pulmonology
#Hyperlipidemia
Continue statin
DVT prophylaxis Eliquis
Full code
Anticipated Discharge: Today
Subjective/Interval History
-
Date of Service: July 17, 2024
83-year-old female with past medical history of atrial fibrillation, COPD, GERD, essential HTN, HLD, HFrEF 40% (03/14), moderate MR, presented to [facility] for 3 weeks of progressive shortness of breath. Patient reports feeling well
today. She would like to be discharged
Objective Data
-
Vital Signs:
Vital Signs
Temp Pulse Resp BP Pulse Ox
98.2 F 84 16 118/52 94
07/17/24 03:31 07/17/24 07:21 07/17/24 07:21 07/17/24 03:31 07/17/24 07:21
I&O
07/16/24 07/17/24 07/18/24
06:59 06:59 06:59
Intake Total 1200 / 1200 1360 / 1360
Output Total 750 / 750
Balance 1200 / 1200 610 / 610
Review of Systems
-
History Source: Patient
All other systems: Reviewed and negative
Physical Exam
-
General: Well Developed, Well Nourished, No Apparent Distress, Comfortable and Conversant
HEENT: Normocephalic and Atraumatic
Respiratory: Clear to Auscultation
Cardiac: Regular Rhythm and S1/S2
GI: Soft, Nontender and Nondistended
Musculoskeletal: No Clubbing, No Cyanosis and No Edema
Skin: Warm and Dry
Neuro: AO x 3
Psych: Calm
Data Reviewed
-
Old Records: Reviewed
[2024-07-17] MEDS: MUCINEX 600 MG PO (08:47)
[2024-07-17] MEDS: LASIX 40 MG IV (08:47)
[2024-07-17] MEDS: ELIQUIS 2.5 MG PO (08:47)
[2024-07-17] MEDS: COREG 6.25 MG PO (08:47)
[2024-07-17] MEDS: LIPITOR 40 MG PO (08:47)
[2024-07-17 11:37] VITALS: BP 139/77
--- NOTE | 2024-07-17 12:15 | CM ---
CM met with Earnestine at bedside to discuss discharge plans. Earnestine is discharged today and denies need for assistance at home. Her neighbor will provide transport home. CM provided Earnestine with information about where her neighbor will pick her up
([employer]).
IMM provided and signed, copy given to patient.
Plan: Discharge to home with no identified needs.
--- NOTE | 2024-07-17 12:39 | W.DCSUMMARY ---
Addendum entered and electronically signed by Quinten Lopez DO 07/19/24 11:02:
CDI: Permanent AF
Original Note:
Documented by User: Clint Jorgensen DO, Resident 07/17/24 12:52
Discharge Summary
Discharge Data
Date of Admission: 07/13/24
Date of Discharge: 07/17/24
Total time spent discharging patient (in min): 24
-
Pending Results: No
Hospital Course
Presenting symptom: Shortness of breath
Hospital diagnosis: Acute exacerbation of heart failure with reduced ejection fraction
Hospital course:83-year-old female with past medical history of atrial fibrillation, COPD, GERD, essential HTN, HLD, HFrEF 40% (03/14), moderate MR, presented to [facility] for 3 weeks of progressive shortness of breath. Echo showed
ejection fraction of 35 to 40% with no significant change since February 2023. Thus, patient was suspected to have fluid overload despite no edema and was started on 40 mg IV Lasix daily. Patient has a history of COPD and during this admission had no
wheezing on exam. Shortness of breath improved with as needed supportive DuoNebs. Recommended following up with pulmonology outpatient. Per cardiology recommendations, patient was transition to oral Lasix 40 mg twice daily, increased Coreg to
6.25 mg twice daily, and reduced Eliquis dose to 2.5 mg twice daily due to age and weight.
#Acute exacerbation of heart failure with reduced ejection fraction
Change daily oral diuretic, furosemide, to 40 mg twice a day
#Atrial fibrillation
Continue Coreg (now 6.25 mg twice daily) and Eliquis (2.5 mg twice daily)
#Essential hypertension
Continue Coreg and losartan
#COPD
Follow-up with pulmonology outpatient
#Hyperlipidemia
Continue statin
-----
Imaging reviewed during admission:
Chest x-ray: 07/13
IMPRESSION:
Mild right basilar atelectasis and/or pneumonia. Cannot rule out component of underlying chronic interstitial lung disease
Echo: 07/14
CONCLUSIONS
1. Left ventricle: Normal size with moderately reduced systolic function and
estimated ejection fraction of 35-40% by Hull's method of discs
2. Right ventricle: Normal
3. Atria: Biatrial dilation
4. Mitral valve: Moderate mitral regurgitation. Mitral annular calcification
is present
5. Aortic valve: Thickened trileaflet aortic valve with moderate aortic
stenosis. The peak and mean gradients are 9 and 13 mmHg respectively. The
estimated aortic valve area is 0.9 cm2 by the continuity equation when using an
LVOT diam of 2.0 cm. No aortic insufficiency.
6. Tricuspid valve: Mild to moderate tricuspid regurgitation with estimated
pulmonary artery systolic pressures of 25-30 mmHg
7. When compared to the most recent echocardiogram from 02/26/2023 there has
been no significant change
Discharge Plan
-
Patient Disposition: Home (Routine Discharge)
Discharge Diagnosis/Procedures: Acute exacerbation of congestive heart failure with reduced ejection fraction, paroxysmal atrial fibrillation, essential hypertension, chronic obstructive pulmonary disease without acute exacerbation, hyperlipidemia
Condition: Good
Diet: Low Cholesterol and 2 Gram Sodium
Activity: As tolerated
Driving Restrictions: As prior to admission
Bathing Restrictions: None
Specialty Instructions: Weigh Daily- Call MD for wt gain/loss 3 lbs overnight/5 lbs in 1 week
Instructions: *DCA Heart Failure Instructions
Referrals:
Diana Bone MD [Family Provider] - in less than 1 week
Kelvin Maciel MD [Active] - in one to two weeks
Prescriptions:
New
carvedilol 6.25 mg Tablet
6.25 mg PO BID Qty: 90 2RF
Eliquis 2.5 mg Tablet
2.5 mg PO BID Qty: 90 2RF
furosemide [Lasix] 40 mg tablet
40 mg PO BID Qty: 90 2RF
Continued
alendronate 70 MG tablet
70 mg PO SA
losartan 50 mg tablet
50 mg PO HS
aspirin 81 mg Tablet,Delayed Release (Dr/Ec)
81 mg PO QPM
acetaminophen 650 mg Tablet Extended Release
1,300 mg PO BID
cholecalciferol (vitamin D3) 50 mcg (2,000 unit) Tablet
50 mcg PO DAILY
atorvastatin 40 MG tablet
40 mg PO DAILY
Discontinued
Eliquis 5 MG tablet
5 mg PO BID
furosemide 40 MG tablet
40 mg PO DAILY Qty: 30 2RF
carvedilol 3.125 MG tablet
3.125 mg PO BID Qty: 60 2RF
Discharge Orders:
Discharge Patient (As Directed); Ordered 07/17/24
Ordered By: Clint Jorgensen
Discharge Date and Time
Print Language: GUATEMALAN

Documented by User: Quinten Lopez DO 07/17/24 13:27
Discharge Summary
Discharge Data
Date of Admission: 07/13/24
Date of Discharge: 07/17/24
Discharge Plan
-
Patient Disposition: Home (Routine Discharge)
Discharge Diagnosis/Procedures: Acute exacerbation of congestive heart failure with reduced ejection fraction, paroxysmal atrial fibrillation, essential hypertension, chronic obstructive pulmonary disease without acute exacerbation, hyperlipidemia
Condition: Good
Diet: Low Cholesterol and 2 Gram Sodium
Activity: As tolerated
Driving Restrictions: As prior to admission
Bathing Restrictions: None
Specialty Instructions: Weigh Daily- Call MD for wt gain/loss 3 lbs overnight/5 lbs in 1 week
Instructions: *DCA Heart Failure Instructions
Referrals:
Diana Bone MD [Family Provider] - in less than 1 week
Kelvin Maciel MD [Active] - in one to two weeks
Prescriptions:
New
carvedilol 6.25 mg Tablet
6.25 mg PO BID Qty: 90 2RF
Eliquis 2.5 mg Tablet
2.5 mg PO BID Qty: 90 2RF
furosemide [Lasix] 40 mg tablet
40 mg PO BID Qty: 90 2RF
Continued
alendronate 70 MG tablet
70 mg PO SA
losartan 50 mg tablet
50 mg PO HS
aspirin 81 mg Tablet,Delayed Release (Dr/Ec)
81 mg PO QPM
acetaminophen 650 mg Tablet Extended Release
1,300 mg PO BID
cholecalciferol (vitamin D3) 50 mcg (2,000 unit) Tablet
50 mcg PO DAILY
atorvastatin 40 MG tablet
40 mg PO DAILY
Discontinued
Eliquis 5 MG tablet
5 mg PO BID
furosemide 40 MG tablet
40 mg PO DAILY Qty: 30 2RF
carvedilol 3.125 MG tablet
3.125 mg PO BID Qty: 60 2RF
Discharge Orders:
Discharge Patient (As Directed); Ordered 07/17/24
Ordered By: Clint Jorgensen
Discharge Date and Time
Print Language: GUATEMALAN
[2024-07-17 12:48] LABS: Blood Urea Nitrogen 27 mg/dl (7-17); Carbon Dioxide 29 mmol/L (22-30); Chloride 96 mmol/L (98-107); Estimated Creatinine Clearance 39 ml/min; Glucose 117 mg/dl (70-99); Potassium 4.1 mmol/L (3.5-5.1); Sodium 136 mmol/L (135-145); eGFR 56.25
--- NOTE | 2024-07-17 13:21 | PN.CDI ---
CDI
- -
CDI:
Physician Documentation Request
Admit Date: 07/13/24 18:14
Dear Doctor Joslyn,
Clinical Indicators:
Patient admitted with acute exacerbation of heart failure with reduced ejection fraction.
07/16 Cardiology PN, 'Permanent atrial fibrillation, diagnosed 03/2020'
07/16 PN, 'Paroxysmal Atrial fibrillation'
07/13 EKG & tele monitoring: Atrial fibrillation
Due to potentially conflicting documentation, please clarify the type of atrial fibrillation:
Permanent atrial fibrillation - when a decision has been made to accept the presence of AF and there is no further attempt to restore or maintain sinus rhythm
Paroxysmal atrial fibrillation - terminates spontaneously or with intervention within 7 days of onset
Other - please specify
Use of terms such as suspected, likely, concern for, or probable (associated with a specific diagnosis that is being evaluated, monitored, or treated as if it exists) are acceptable and can be coded in the inpatient setting, when documented at the
time of discharge.
Thank you,
Tory Miner RN BSN
CDI Specialist
available via tiger text
Please use your independent medical judgment in providing your response.
--- NOTE | 2024-07-17 18:43 | W.PN.CARDCBS ---
Today's Communication / Plan
-
Okay for discharge
Impression / Plan
-
.
PCP: Dr. Bone
Cardiology: Dr. JERED Mccord
Impression:
Presented with SOB
Acute on chronic HFrEF
Recent pneumonia
CAD
NSTEMI s/p urgent IABP and prox LAD PCI 06/04/21
residual total occlusion of the right coronary artery with complex tortuous disease in the distal circumflex
Moderate to severe aortic stenosis
Ischemic CM
Hypertension
Dyslipidemia
Permanent atrial fibrillation, diagnosed 03/2020
Eliquis anticoagulation [DVT and A. fib]
Chronic LBBB
COPD
History of DVT
History of Graves' disease
Neuropathy
History of mechanical fall with L1 compression fracture 10/2020
ECHO 06/02/21: EF 35-40%, septal, mid to distal anterior and apical hypokinesis, asymmetric septal hypertrophy, stage II diastolic dysfunction, mitral annular calcification, moderate MR, thickened aortic valve with peak/mean gradients 25/11 mmHg,
NATALIA 1.1 cm�, moderate to severe , mild TR, PAP 35 mmHg
Echo 07/25/2021: Ejection fraction 35%, moderate aortic stenosis with mean pressure gradient of 11 mmHg and aortic valve area 1.0 cm, moderate MR
Echo 07/14/2024: EF 35 to 40%, MAC with moderate MR, moderate AAS with peak/mean gradient 9/13 mmHg, NATALIA 0.9 cm�, mild to moderate TR, estimated PAP 25 to 30 mmHg
Plan:
Patient feels well,
Okay for discharge
Outpatient follow-up arranged
Discussed with nursing
HPI: Earnestine is an 83 year old female with PMH chronic HFrEF, CAD status post LAD PCI 06/04/2021 with residual total occlusion of the RCA, AAS, ischemic cardiomyopathy, hypertension, hyperlipidemia, permanent atrial fibrillation, LBBB, COPD, prior DVT,
Graves' disease, and neuropathy. She presented to ER for evaluation of worsening shortness of breath. She had been recently diagnosed with pneumonia by PCP and completed a course of amoxicillin and Mucinex 2 days prior to arrival without
improvement in her symptoms. Chest x-ray in ER with patchy opacities in the right lung, with procalcitonin <0.05. proBNP was elevated at 4690. She was admitted with acute heart failure and started on IV Lasix 40 mg daily. She also has history of
persistent/permanent atrial fibrillation and heart rates have been somewhat elevated intermittently during this hospitalization. Cardiology consulted for evaluation.
Progress Note - Courtroom Deputy
Subjective
Date of Service: July 17, 2024:
83-year-old woman admitted with acute on chronic HFrEF
PMH: None ST segment elevation [place] 2020 with cardiogenic shock, proximal LAD PCI with MECHANIC INSULATOR of RCA and distal circumflex stenosis, moderate-severe aortic stenosis, Ischemic cardiomyopathy, most recent EF 35-40%, history of DVT, COPD, left bundle branch
block, moderate MR
Allergies: None
Outpatient medications (pertinent) aspirin, atorvastatin 40 mg a day, carvedilol 3.125 twice daily, Eliquis 5 twice daily, furosemide 40 daily and losartan 50 mg at bedtime
Current meds: Aspirin 81 mg a day, atorvastatin 40 mg a day, losartan 50 mg a day, furosemide 40 IV twice daily, carvedilol 6.25 twice daily, apixaban 2.5 twice daily
118/52, pulse 84, afebrile, 93, weight is 56.4 kg, No distress, head neck exam markable, few crackles/rhonchi in bases, Abdomen benign, extremities without clubbing cyanosis or edema
No labs today
Objective
Labs:
07/14/24 07:53
07/17/24 11:49
Labs
Hgb 12.6 g/dL (12.0-16.0) 07/14/24 07:53
Hct 38.3 % (37.0-47.0) 07/14/24 07:53
Plt Count 184 10^3/uL (130-400) 07/14/24 07:53
Sodium 136 mmol/L (135-145) 07/17/24 11:49
Potassium 4.1 mmol/L (3.5-5.1) 07/17/24 11:49
BUN 27 mg/dl (7-17) H 07/17/24 11:49
Creatinine 1.0 mg/dL (0.6-1.0) 07/17/24 11:49
Glucose 117 mg/dl (70-99) H 07/17/24 11:49
Vital Signs and I&O:
Vital Signs
Temp Pulse Resp BP Pulse Ox
36.3 C 87 18 139/77 91
07/17/24 11:37 07/17/24 11:37 07/17/24 11:37 07/17/24 11:37 07/17/24 13:20
Vital Signs
Temp Pulse Resp BP Pulse Ox
36.3 C 87 18 139/77 91
07/17/24 11:37 07/17/24 11:37 07/17/24 11:37 07/17/24 11:37 07/17/24 13:20
Intake & Output
07/15/24 07/16/24 07/17/24 07/18/24
07:59 07:59 07:59 07:59
Intake Total 1380 / 1380 1200 / 1200 1360 / 1360
Output Total 300 / 300 750 / 750
Balance 1080 / 1080 1200 / 1200 610 / 610
Physical Exam
Physical Exam
See above
== END 2024-07-17 14:15 | disposition home or self-care (01) | DRG 291 ==
LOC: 4 EAST ACU 18:14
PROVIDERS: Internal Medicine Cardiovascular Disease; Nurse Practitioner; ADMITTING PHYSICIAN Student in an Organized Health Care Education/Training Program; ATTENDING PHYSICIAN Internal Medicine; CONSULT PHYSICIAN Nuclear Medicine Nuclear Cardiology; EMERGENCY PHYSICIAN Emergency Medicine; FAMILY PHYSICIAN Emergency Medicine
DX: I11.0 Hypertensive heart disease with heart failure (principal); I50.23 Acute on chronic systolic (congestive) heart failure; I48.21 Permanent atrial fibrillation; E03.9 Hypothyroidism, unspecified; E78.00 Pure hypercholesterolemia, unspecified; G62.9 Polyneuropathy, unspecified; I44.7 Left bundle-branch block, unspecified; I25.10 Atherosclerotic heart disease of native coronary artery without angina pectoris; I25.5 Ischemic cardiomyopathy; I25.82 Chronic total occlusion of coronary artery; I35.0 Nonrheumatic aortic (valve) stenosis; J44.9 Chronic obstructive pulmonary disease, unspecified; K21.9 Gastro-esophageal reflux disease without esophagitis; I25.2 Old myocardial infarction; Z87.01 Personal history of pneumonia (recurrent); Z87.891 Personal history of nicotine dependence; Z79.01 Long term (current) use of anticoagulants; Z79.82 Long term (current) use of aspirin; Z86.718 Personal history of other venous thrombosis and embolism; Z79.899 Other long term (current) drug therapy; Z95.5 Presence of coronary angioplasty implant and graft; Z11.52 Encounter for screening for COVID-19
CPT/HCPCS: 71046; 80048; 80053; 80061; 83690; 83735; 83880; 84145; 84443; 84484; 85025; 85027; 87502; 87811; 93005; 93306; 94640; 96374; 99285

== ENCOUNTER → 2024-07-24 11:06 | Outpatient (REF) | payer MEDICARE, SELFPAY | LOC: RAD 11:06 | PROVIDERS: ATTENDING PHYSICIAN Family Medicine | DX: R06.02 Shortness of breath (principal) | CPT/HCPCS: 71046 ==

== ENCOUNTER → 2024-08-22 11:30 | Outpatient (REF) | payer MEDICARE, SELFPAY ==
[2024-08-22 12:59] LABS: % Basophils 0.9 % (0-2); % Eosinophils 3.9 % (0-6); % Immature Granulocytes 0.4 % (0-0.5); % Lymphocytes 19.9 % (20.5-51.1); % Monocytes 11.3 % (1.7-9.3); % Neutrophils 63.6 % (42.2-75.2); Absolute Basophils 0.1 10^3/uL (0-0.2); Absolute Eosinophils 0.2 10^3/uL (0-0.7); Absolute Lymphocytes 1.1 10^3/uL (1.2-3.4); Absolute Monocytes 0.6 10^3/uL (0.1-0.6); Absolute Neutrophils 3.4 10^3/uL (1.4-6.5); Hematocrit 33.7 % (37.0-47.0); Hemoglobin 11.1 g/dL (12.0-16.0); Mean Corp Hgb Conc. 32.9 g/dL (33.0-37.0); Mean Corpuscular Hgb 33.2 pg (27.0-31.0); Mean Corpuscular Volume 100.9 fL (81.0-99.0); Nucleated Red Blood Cells % 0 %; Platelet Count 164 10^3/uL (130-400); Red Blood Cell Count 3.34 10^6/uL (4.20-5.40); Red Cell Dist. Width 13.7 % (11.5-14.5); White Blood Cell Count 5.3 10^3/uL (4.8-10.8)
[2024-08-22 13:23] LABS: NT-proBNP 7000 pg/ml
[2024-08-22 13:31] LABS: ALT (SGPT) 10 U/L (0-35); AST (SGOT) 23 U/L (14-36); Albumin 3.9 g/dl (3.5-5.0); Alkaline Phosphatase 78 U/L (38-126); Blood Urea Nitrogen 16 mg/dl (7-17); Calcium 9.1 mg/dl (8.4-10.2); Carbon Dioxide 25 mmol/L (22-30); Chloride 95 mmol/L (98-107); Glucose 88 mg/dl (70-99); Potassium 3.8 mmol/L (3.5-5.1); Sodium 132 mmol/L (135-145); eGFR > 60.00
[2024-08-22 13:57] LABS: Vitamin D, 25-OH*** 46.3 ng/mL (30-80)
[2024-08-22 14:30] LABS: Vitamin B12 861 pg/ml (239-931)
== END ==
LOC: REG 11:30
PROVIDERS: ATTENDING PHYSICIAN Emergency Medicine; OTHER PHYSICIAN Internal Medicine Cardiovascular Disease
DX: Z09 Encounter for follow-up examination after completed treatment for conditions other than malignant neoplasm (principal); R63.4 Abnormal weight loss; R53.83 Other fatigue; R93.89 Abnormal findings on diagnostic imaging of other specified body structures; Z87.891 Personal history of nicotine dependence; I10 Essential (primary) hypertension
CPT/HCPCS: 36415; 71260; 74177; 80053; 82306; 82607; 83880; 84155; 84165; 84443; 85025; Q9967

== ENCOUNTER 2024-09-06 16:29 | Inpatient (IN) | payer MEDICARE, SELFPAY ==
[2024-09-04 13:20] VITALS: BP 120/65
--- NOTE | 2024-09-04 13:21 | ED.GENMED ---
ED Provider Triage
<Suni Dykes NP - Last Filed: 09/04/24 13:33>
-
Patient seen by provider in Triage?: Seen in Triage
Attestation: A medical screening examination has been initiated by a qualified medical provider. Based on the assessment performed at this time, it has been determined that an emergent medical condition may exist and the patient has been informed
that further medical evaluation and possible additional diagnostic testing may be needed.
HPI: 84-year-old female presents, with history of A-fib, CHF, COPD, aortic stenosis, is here for worsening shortness of breath, dyspnea on exertion, in the doctor's office today she is hypoxic with ambulation with a pulse ox in the 80s.
In triage her pulse ox is 93% at rest on room air
GENERAL: Alert , in no apparent distress
EYE: No visual abnormalities.
NECK: Trachea midline
ENT: No visible abnormalities.
LUNGS: No acute respiratory distress
NEUROLOGICAL: Alert and oriented
SKIN: Skin intact. No visible changes.
MUSCULOSKELETAL: Moving extremities normally
PSYCH: Normal and appropriate interaction.
This is a medical evaluation conducted in person to initiate diagnostic evaluation and provide initial therapeutics. Please see further documentation by the treating clinician.
History of Present Illness
<Suni Dykes FERRY CAPTAIN - Last Filed: 09/04/24 13:33>
General
Chief Complaint: Breathing Problem
Time Seen by Provider: 09/04/24 17:01
<Deepika Feliz MD - Last Filed: 09/04/24 17:20>
History of Present Illness
History of Present Illness:
Patient is an 84-year-old woman with history of A-fib on Eliquis, CHF, aortic stenosis presenting to the emergency department difficulty breathing. Per chart review patient was admitted here for the same complaints and was found to have CHF
exacerbation. She was discharged. She states that she had outpatient CT scan that showed possible infection and did see a medicaid billing specialist last week. He recommended sputum culture which she has unable to obtain just yet. Given the ongoing
difficulty breathing that is most notable with exertion and cough patient went to her PCP today. There her oxygen with ambulation was in the 80s. On arrival here patient denies any chest pain. No fevers or chills. No nausea or vomiting. She has
been compliant with her medications. She does state that she is currently at her dry weight. She does not feel fluid overloaded.
Past History
<Suni Dykes, FERRY CAPTAIN - Last Filed: 09/04/24 13:33>
Past History
ED Past Medical History: Arrthythmia (Atrial fib), COPD, GERD, HTN, Hypercholesterolemia, Hypothyroidism, Other (Nasal polyps, sinusitis, asthma, ischemic colitis, DVT,) and Other (Patient has a history of chronic bronchitis, she is an ex-smoker, as
to gastroenteritis, stress incontinence, arthritis, and impaired vision, depression, and deviated septum, as well as fluid retention, history of neuropathy, and iron allergies. )
ED Past Surgical History: None
Social History
Tobacco: Former smoker
Alcohol: Occasional
Personal:
Living: alone
Employment: Retired
Phy Exam
<Deepika Feliz MD - Last Filed: 09/04/24 17:20>
Physical Exam
Physical Exam:
GENERAL: in no acute distress
HEENT: normocephalic, extraocular movements intact, moist oral mucosa
NECK: normal inspection
RESPIRATORY: no respiratory distress, coarse breath sounds at the bases
CARDIOVASCULAR: regular rate and rhythm
ABDOMEN/: soft, non-distended, non-tender to palpation, no rebound or guarding
EXTREMITIES: non-tender, no edema/swelling
NEUROLOGIC: awake and alert, moves all extremities
SKIN: warm
Scores
<Deepika Feliz MD - Last Filed: 09/04/24 17:20>
Heart Failure Risk
Heart Failure Risk Score: Not Applicable
Course
<Suni Dykes, FERRY CAPTAIN - Last Filed: 09/04/24 13:33>
Orders/Labs/Results
Orders:
Orders
09/04/24 13:22
Electrocardiogram (*1) Stat
Reason for Study: Other
Other Reason for Exam: chest pain
EKG- Treatment ONCE
CR Chest - 2 Views Urgent
Comment:
Reason For Exam: SOB
09/04/24 13:35
Complete Blood Count/With Diff Urgent
Comprehensive Metabolic Panel Urgent
NT-proBNP Urgent
Troponin I Urgent
09/04/24 17:11
Sputum Culture [Respiratory Culture/Gram Stain] Urgent
NUNO Source: Sputum
Specimen Description:
Abnormal Lab Results
09/04/24
13:35
RBC 3.59 L 10^6/uL
(4.20-5.40)
Hgb 11.8 L g/dL
(12.0-16.0)
Hct 36.4 L %
(37.0-47.0)
MCV 101.4 H fL
(81.0-99.0)
MCH 32.9 H pg
(27.0-31.0)
MCHC 32.4 L g/dL
(33.0-37.0)
Absolute Monos (auto) 0.7 H 10^3/uL
(0.1-0.6)
Monocytes % 11.3 H %
(1.7-9.3)
Chloride 95 L mmol/L
(98-107)
BUN 21 H mg/dl
(7-17)
Glucose 104 H mg/dl
(70-99)
09/04/24 13:35
09/04/24 13:35
Vital Signs
Initial and Last Documented VS:
Initial Vital Signs
Temp Pulse Resp BP Pulse Ox
97.6 F 67 18 120/65 94
09/04/24 13:20 09/04/24 13:20 09/04/24 13:20 09/04/24 13:20 09/04/24 13:20
Last Documented Vital Signs
Temp Pulse Resp BP Pulse Ox
97.6 F 67 18 120/65 94
09/04/24 13:20 09/04/24 13:20 09/04/24 13:20 09/04/24 13:20 09/04/24 13:20
<Deepika Feliz MD - Last Filed: 09/04/24 17:20>
Orders/Labs/Results
Orders:
Orders
09/04/24 13:22
Electrocardiogram (*1) Stat
Reason for Study: Other
Other Reason for Exam: chest pain
EKG- Treatment ONCE
CR Chest - 2 Views Urgent
Comment:
Reason For Exam: SOB
09/04/24 13:35
Complete Blood Count/With Diff Urgent
Comprehensive Metabolic Panel Urgent
NT-proBNP Urgent
Troponin I Urgent
09/04/24 17:11
Sputum Culture [Respiratory Culture/Gram Stain] Urgent
NUNO Source: Sputum
Specimen Description:
Abnormal Lab Results
09/04/24
13:35
RBC 3.59 L 10^6/uL
(4.20-5.40)
Hgb 11.8 L g/dL
(12.0-16.0)
Hct 36.4 L %
(37.0-47.0)
MCV 101.4 H fL
(81.0-99.0)
MCH 32.9 H pg
(27.0-31.0)
MCHC 32.4 L g/dL
(33.0-37.0)
Absolute Monos (auto) 0.7 H 10^3/uL
(0.1-0.6)
Monocytes % 11.3 H %
(1.7-9.3)
Chloride 95 L mmol/L
(98-107)
BUN 21 H mg/dl
(7-17)
Glucose 104 H mg/dl
(70-99)
09/04/24 13:35
09/04/24 13:35
Vital Signs
Initial and Last Documented VS:
Initial Vital Signs
Temp Pulse Resp BP Pulse Ox
97.6 F 67 18 120/65 94
09/04/24 13:20 09/04/24 13:20 09/04/24 13:20 09/04/24 13:20 09/04/24 13:20
Last Documented Vital Signs
Temp Pulse Resp BP Pulse Ox
97.6 F 67 18 120/65 94
09/04/24 13:20 09/04/24 13:20 09/04/24 13:20 09/04/24 13:20 09/04/24 13:20
<Deepika Feliz MD - Last Filed: 09/04/24 17:20>
MDM/Problems Addressed
Differential Diagnosis Includes:
Patient is a 84-year-old woman presenting to the emergency department with cough for the past few months as well as difficulty breathing most notably with exertion. Vitals are notable for a pulse ox of 94% on room air. Exam does show coarse breath
sounds at the bases with no pitting edema in the extremities. Differential consists of infection versus CHF exacerbation versus atypical ACS. Considered PE though less likely as patient is anticoagulated and symptoms are only with exertion. Blood
work obtained prior to my evaluation does show mild elevation in her BNP though it is less than prior. Chest x-ray per my interpretation with thickening in the lower bronchioles most noticeably on the right. Per the official read consistent with
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 Will obtain sputum culture. Patient will need admission given the hypoxia during ambulation. Discussed with hospitalist who accepted patient to their service.
<Deepika Feliz MD - Last Filed: 09/04/24 17:20>
*Critical Care Note
Total Time (30-74mins, 75-104mins- exclusive of procedures): Not Applicable
ED Attending Note
<Suni Dykes NP - Last Filed: 09/04/24 13:33>
-
Portions of this chart may have been created with voice recognition software.� Occasional wrong word or��sound alike� substitutions may have occurred due to the inherent limitations of voice recognition software.
Discharge Plan
Departure
Patient Disposition: Admit
Date of Disposition: 09/04/24
Time of Disposition: 17:19
Presentation/result/management discussed w/ accepting MD/DO: Hospitalist
Discharge Problem:
Cough
Prescriptions:
No Action
alendronate 70 MG tablet
70 mg PO SA
losartan 50 mg tablet
50 mg PO HS
aspirin 81 mg Tablet,Delayed Release (Dr/Ec)
81 mg PO QPM
acetaminophen 650 mg Tablet Extended Release
1,300 mg PO BID
cholecalciferol (vitamin D3) 50 mcg (2,000 unit) Tablet
50 mcg PO DAILY
atorvastatin 40 MG tablet
40 mg PO DAILY
carvedilol 6.25 mg Tablet
6.25 mg PO BID Qty: 90 2RF
Eliquis 2.5 mg Tablet
2.5 mg PO BID Qty: 90 2RF
furosemide [Lasix] 40 mg tablet
40 mg PO BID Qty: 90 2RF
Interventions
Interventions:
*Risk Screen - Suicide Last Done: 09/04/24 13:20
*Neglect/Abuse Screening Last Done: 09/04/24 13:20
Discharge Date and Time
Print Language: BENGALI
[2024-09-04 13:50] LABS: % Basophils 1.1 % (0-2); % Eosinophils 4.2 % (0-6); % Immature Granulocytes 0.5 % (0-0.5); % Monocytes 11.3 % (1.7-9.3); % Neutrophils 61.9 % (42.2-75.2); Absolute Basophils 0.1 10^3/uL (0-0.2); Absolute Eosinophils 0.3 10^3/uL (0-0.7); Absolute Lymphocytes 1.4 10^3/uL (1.2-3.4); Absolute Monocytes 0.7 10^3/uL (0.1-0.6); Hematocrit 36.4 % (37.0-47.0); Hemoglobin 11.8 g/dL (12.0-16.0); Mean Corp Hgb Conc. 32.4 g/dL (33.0-37.0); Mean Corpuscular Hgb 32.9 pg (27.0-31.0); Mean Corpuscular Volume 101.4 fL (81.0-99.0); Nucleated Red Blood Cells % 0 %; Platelet Count 193 10^3/uL (130-400); Red Blood Cell Count 3.59 10^6/uL (4.20-5.40); Red Cell Dist. Width 13.8 % (11.5-14.5); White Blood Cell Count 6.5 10^3/uL (4.8-10.8)
[2024-09-04 14:02] LABS: ALT (SGPT) 10 U/L (0-35); AST (SGOT) 22 U/L (14-36); Albumin 4.2 g/dl (3.5-5.0); Alkaline Phosphatase 90 U/L (38-126); Blood Urea Nitrogen 21 mg/dl (7-17); Calcium 9.2 mg/dl (8.4-10.2); Carbon Dioxide 27 mmol/L (22-30); Chloride 95 mmol/L (98-107); Glucose 104 mg/dl (70-99); Potassium 4.3 mmol/L (3.5-5.1); Sodium 136 mmol/L (135-145); Total Bilirubin 1.1 mg/dl (0.2-1.3); Total Protein 7.4 g/dl (6.3-8.2); eGFR > 60.00
[2024-09-04 14:14] LABS: NT-proBNP 4280 pg/ml; Troponin I 0.017 ng/ml
[2024-09-04 17:31] VITALS: BMI 20.3
--- NOTE | 2024-09-04 17:49 | HPS.HSE ---
Family Physician
-
Family Physician:
Chief Complaint
-
Dyspnea on Exertion
History of Present Illness
Patient is an 84 y/o female past medical history of atrial fibrillation, and COPD who presents with dyspnea on exertion. Patient had a Chest CT scan on 08/22 that raised concern for MAC. Patient saw pulmonary in the office earlier this month and
was instructed to get a sputum culture which she had not yet submitted. Today patient saw her PCP today who found her to have hypoxia with exertion and sent her to the emergency department for evaluation. Patient reports chronic cough that is
sometimes productive of green/yellow mucus. She denies shortness of breath at rest, but son at bedside notes she appears very short of breath with exertion.
Medical History
Past Medical History
Past Medical History: Reports Other
Additional Past Medical History:
Chronic HFrEF
Paroxysmal Atrial Fibrillation
Essential Hypertension
Hyperlipidemia
COPD
Hypothyroidism
Past Surgical History: Reports None
Social History
Tobacco: Non-smoker
Family History
Family History: Not pertinent
Allergies / Home Medications
Allergies reflects when Allergies were last updated in [employer]
Home Medications with original date entered in [employer]
Allergy/Medication List:
Allergies
Allergy/AdvReac Type Severity Reaction Status Date / Time
No Known Allergies Allergy Verified 09/04/24 13:24
Home Medications
alendronate 70 mg tablet 70 mg PO SA osteoporosis 05/31/21
acetaminophen 650 mg tablet,extended release 1,300 mg PO BID Pain 07/13/24
atorvastatin 40 mg tablet 40 mg PO DAILY High cholesterol 07/13/24
cholecalciferol (vitamin D3) 50 mcg (2,000 unit) tablet 50 mcg PO DAILY Supplement 07/13/24
losartan 50 mg tablet 50 mg PO HS Blood Pressure 07/13/24
apixaban 2.5 mg tablet (Eliquis) 2.5 mg PO BID #90 tabs 11/25/24
albuterol sulfate 90 mcg/actuation aerosol inhaler 1 inh inhalation R QID 09/04/24
carvedilol 3.125 mg tablet 3.125 mg PO BID 09/04/24
furosemide 40 mg tablet 20 mg PO QPM 09/04/24
furosemide 40 mg tablet (Lasix) 40 mg PO DAILY 09/04/24
spironolactone 25 mg tablet 12.5 mg PO DAILY 09/04/24
umeclidinium 62.5 mcg-vilanterol 25 mcg/actuation powdr for inhalation (Anoro Ellipta) 1 inh inhalation R DAILY@1300 09/04/24
Review of Systems
-
A 12 point ROS was completed and negative except as noted: Yes
Constitutional: Denies Fever or Chills
Respiratory: Reports See HPI
Cardiac: Denies Chest Pain or Palpitations
Abdomen/GI: Denies Nausea, Vomiting or Diarrhea
Physical Exam
Vital Signs
Vital Signs
Temp Pulse Resp BP Pulse Ox
97.6 F 67 18 120/65 94
09/04/24 13:20 09/04/24 13:20 09/04/24 13:20 09/04/24 13:20 09/04/24 13:20
Physical Exam
General: Comfortable and Conversant
HEENT: Anicteric and Moist mucous membranes; No Oxygen
Respiratory: Rales (Right base but otherwise clear) and Non Labored Respirations
Cardiac: S1/S2 and Regular Rhythm
GI: Soft and Non Tender
Rectal: Deferred by Provider
Musculoskeletal: No Clubbing, No Cyanosis and No Edema
Skin: Warm and Dry
Neuro: Awake, Alert, Oriented and Nonfocal/grossly intact
Psych: Calm
Laboratory Results
-
09/04/24 13:35
09/04/24 13:35
Laboratory Results
Total Bilirubin 1.1 mg/dl (0.2-1.3) 01/13/25 13:35
AST 22 U/L (14-36) 09/04/24 13:35
ALT 10 U/L (0-35) 09/04/24 13:35
Alkaline Phosphatase 90 U/L (38-126) 09/04/24 13:35
Troponin I 0.017 ng/ml 09/04/24 13:35
Chest X-Ray:
1. 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
2. Moderate to severe emphysema in the upper lobes.
3. Severe chronic atelectasis in the right middle lobe.
Data Reviewed
-
Diagnostic Radiology: Report Reviewed by me
Lab Data: Labs Reviewed by me
Old Records: Reviewed
Impression/Plan
-
Exertional Hypoxia - Imaging has raised concern for possible JUAN Infection
-Consult pulmonary
-Continue supplemental oxygen as needed
-Attempt to obtain sputum culture
Paroxysmal Atrial Fibrillation
-Continue Eliquis for anticoagulation
-Continue Coreg for rate control
Chronic HFrEF
-Continue Lasix and Spironolactone
-Monitor Is&Os and Daily Weights
Essential Hypertension
-Continue Coreg and Losartan
Hyperlipidemia
-Continue atorvastatin
COPD
-Transition to nebulizers during hospitalization
DVT proph: Eliquis
Code Status: Full Code
[2024-09-04 18:00] VITALS: BP 136/87
--- NOTE | 2024-09-04 18:00 | W.PN.UPDATE ---
Update Note
Progress Note Update
This is an addendum to the H&P dictated by Yanni Kaufman on 09/04/2024.
I saw and examined the patient.
The SIGNING TEACHER or PA's note was reviewed and I agree with the note.
Comment:
Patient 84 years old female history of A-fib, CHF, COPD, aortic stenosis came into the hospital shortness of breath and hypoxia. Patient had a CT scan at the end of July with inflammatory abnormalities and was seen by pulmonary as outpatient
and was chronic in sputum culture but never happened. At the PCP office she was noted to be hypoxic and she was sent over to the hospital for further evaluation. She does have some cough not much sputum production. No fevers or chills. She does
have shortness of breath that has been progressively getting worse.
Physical exam:
General: Acutely ill
HEENT: Normocephalic, Atraumatic and Moist Mucous Membranes
Respiratory: Bilateral rhonchi; Negative Wheezes, Rales
Cardiac: Regular Rhythm and S1/S2
GI: Soft, Nontender and Nondistended
Musculoskeletal: No Clubbing, No Cyanosis and No Edema
Neuro: Awake, Alert and Oriented
Psych: Calm
A/P:
Acute hypoxic respiratory insufficiency--> unclear etiology but certainly possible JUAN contributing versus COPD but given that not much bronchospasm not sure how much this is contributing. Pulmonary consult.
[2024-09-04 19:00] VITALS: BP 156/95
--- NOTE | 2024-09-04 19:26 | PTCARENOTE ---
Pt arrived to unit @ 1926 via stretcher able to ambulate with personal cane, vss, assessment completed. Call martinez within reach. RN COMPLETED ADMISSION DOCUMENTATION
[2024-09-04 20:00] VITALS: BP 156/92
[2024-09-04] MEDS: MUCINEX 600 MG PO (20:09)
[2024-09-04] MEDS: ELIQUIS 2.5 MG PO (20:09)
[2024-09-04] MEDS: COREG 3.125 MG PO (20:10)
[2024-09-04] MEDS: LASIX 20 MG PO (20:10)
[2024-09-04] MEDS: PULMICORT 0.5 MG INH (20:35)
[2024-09-04] MEDS: DUONEB 3 ML INH (20:35)
[2024-09-04] MEDS: COZAAR 50 MG PO (21:20)
[2024-09-04 23:00] VITALS: BP 112/61
[2024-09-05 07:00] VITALS: BMI 20.1
[2024-09-05] MEDS: DUONEB 3 ML INH ×4 (07:25→19:42)
[2024-09-05] MEDS: PULMICORT 0.5 MG INH ×2 (07:25→19:42)
[2024-09-05 07:32] VITALS: BP 106/58
--- NOTE | 2024-09-05 08:21 | W.PN.HOSP.TC ---
Today's Communication/Plan
-
Pulmonary consult pending
Assessment / Plan
Assessment / Plan
Physical Exam
General: Comfortable and Conversant
HEENT: Anicteric and Moist mucous membranes; No Oxygen
Respiratory: Rales (Right base but otherwise clear) and Non Labored Respirations
Cardiac: S1/S2 and Regular Rhythm
GI: Soft and Non Tender
Rectal: Deferred by Provider
Musculoskeletal: No Clubbing, No Cyanosis and No Edema
Skin: Warm and Dry
Neuro: Awake, Alert, Oriented and Nonfocal/grossly intact
Psych: Calm
A/P:
Exertional Hypoxia - Imaging has raised concern for possible JUAN Infection
-Consult pulmonary
-Continue supplemental oxygen as needed
-Attempt to obtain sputum culture
Paroxysmal Atrial Fibrillation
-Continue Eliquis for anticoagulation
-Continue Coreg for rate control
Chronic HFrEF
-Continue Lasix and Spironolactone
-Monitor Is&Os and Daily Weights
Essential Hypertension
-Continue Coreg and Losartan
Hyperlipidemia
-Continue atorvastatin
COPD
-Transition to nebulizers during hospitalization
DVT proph: Eliquis
Code Status: Full Code
Anticipated Discharge: Within 24 hours
Subjective/Interval History
-
Date of Service: September 05, 2024
Patient feels better, less shortness of breath. Less cough. Afebrile. On room air
Objective Data
-
Vital Signs:
Vital Signs
Temp Pulse Resp BP Pulse Ox
97.6 F 78 17 106/58 94
09/05/24 07:32 09/05/24 07:32 09/05/24 07:32 09/05/24 07:32 09/05/24 07:32
I&O
09/04/24 09/05/24 09/06/24
06:59 06:59 06:59
Intake Total 480 / 480
Balance 480 / 480
[2024-09-05] MEDS: MUCINEX 600 MG PO ×2 (08:43→20:12)
[2024-09-05] MEDS: LIPITOR 40 MG PO (08:43)
[2024-09-05] MEDS: ALDACTONE 12.5 MG PO (08:43)
[2024-09-05] MEDS: LASIX 40 MG PO (08:44)
[2024-09-05] MEDS: COREG PO ×2 (08:44→20:11)
[2024-09-05] MEDS: ELIQUIS 2.5 MG PO ×2 (08:44→20:12)
[2024-09-05] MEDS: VITAMIN D3 (cholecalciferol) 50 MCG PO (08:44)
--- NOTE | 2024-09-05 09:02 | CON.PUL ---
Addendum entered and electronically signed by Niall Quick MD 09/05/24 20:28:
Typo: CT chest from 08/22/2024 showed significant upper lobe predominant centrilobular emphysema, not edema.
Original Note:
Consultation
Consultation Request
Date/Time Consultation Requested: 09/04/20241928
Date/Time Consultation Performed: 09/05/2024909
Requesting Provider: Yanni Ac PA-C
Performing Provider: Dr. Quick
Reason for Consultation: SOB/hypoxia
Medical History
-
Chief Complaint: SOB
History of Present Illness:
84-year-old female with a past medical history of COPD, chronic HFrEF, deviated nasal septum s/p septoplasty, seasonal allergies, LBBB, valvular heart disease, history of WI s/p stents and osteopenia who presents with shortness of breath. She was
sent in to the ER by her PCP. Patient was desaturating to the 80s on room air. Patient has chronic cough productive of green/yellow mucus. Initial vitals showed she was afebrile to 97.6 �F, pulse rate 67, breathing at 18 breaths/min, BP 120/65
and saturating 94% on room air. Initial labs showed WBC 6.5, Hb 11.8, troponin 0.017, proBNP 4280 (7000 from 08/22/2024), and CXR showed RML atelectasis which is now chronic with small peripheral reticular nodular opacities in the lower lung cárdenas
consistent with chronic peripheral endobronchial infection with suspected chronic JUAN. There was a small right-sided pleural effusion and moderately exaggerated thoracic kyphosis. She was admitted to med/surg and pulmonary service now consulted
for additional management/recommendations.
When I saw the pt she was resting in bed in NAD on room air. She was breathing comfortably. She denies SOB or chest pain/discomfort. Denies fevers/chills. She has a chronic cough with yellow/green mucous, non-bloody. She denies COPE, abd
pain,diarrhea, vomiting, f/c.
Of note, patient follows with us in the [facility] office, initially seen by Dr. Zamudio in June 2021 and last seen on 08/24/2024 by YANCY Stark. She has a history of moderate COPD with stable symptoms and 6 MWT from 10/2022 showed no need for
O2 at that time. Repeat 6 MWT performed at that office visit showed no evidence of hypoxia. She is continued on Anoro therapy started by her PCP with as needed albuterol HFA. She had evidence of bronchiolitis on CT chest from 08/22/2024 in
addition to right middle lobe pneumonia and bibasilar patchy opacities. Sputum culture was ordered. She is a former smoker with [id number]-kiah-jmse history but not a candidate for lung cancer screening given her age. She was told to follow-up in 3
months with PFT. Her last PFT was from 09/16/2016 showing moderate COPD with hyperinflation and air trapping (T%, RV: 196%) with severely reduced gas exchange capacity (DLco: 31%, DLco/VA: 25%).
PMHx: Moderate COPD/emphysema, chronic HFrEF, deviated nasal septum s/p septoplasty, seasonal allergies, hypercholesterolemia, neuropathy, gastritis, diverticulosis, hypothyroidism, history of ischemic colitis, LBBB, valvular heart disease with
mitral regurgitation and aortic stenosis, history of WI s/p KASANDRA to LAD (06/12), osteopenia
PSHx: Bilateral cataract surgery, tooth extraction, coronary stents
Past Medical History
Past Medical History: Other (Above as per HPI)
Past Surgical History: Other (Above as per HPI)
Social History
Tobacco: Former Smoker (Former smoker with 29-nolk-syve history)
Alcohol: None
Drug: None
Family History
Family History: CAD (Father), Cancer (Paternal aunt: Breast cancer) and Other (Father: Pacemaker; mother: Tuberculosis cancer)
Allergies / Home Medications
Allergies
Allergy/AdvReac Type Severity Reaction Status Date / Time
No Known Allergies Allergy Verified 09/04/24 13:24
Home Medications
�Medication �Instructions �Recorded �Confirmed �Last Taken �Type
alendronate 70 mg tablet 70 mg PO SA osteoporosis 05/31/21 09/04/24 09/02/24 History
acetaminophen 650 mg 1,300 mg PO BID Pain 07/13/24 09/04/24 09/04/24 History
tablet,extended release
atorvastatin 40 mg tablet 40 mg PO DAILY High cholesterol 07/13/24 09/04/24 09/04/24 History
cholecalciferol (vitamin D3) 50 50 mcg PO DAILY Supplement 07/13/24 09/04/24 09/04/24 History
mcg (2,000 unit) tablet
losartan 50 mg tablet 50 mg PO HS Blood Pressure 07/13/24 09/04/24 09/03/24 History
apixaban 2.5 mg tablet (Eliquis) 2.5 mg PO BID #90 tabs 07/17/24 09/04/24 09/04/24 Rx
albuterol sulfate 90 mcg/actuation 1 inh inhalation R QID 09/04/24 09/04/24 09/04/24 History
aerosol inhaler
carvedilol 3.125 mg tablet 3.125 mg PO BID 09/04/24 09/04/24 09/04/24 History
furosemide 40 mg tablet 20 mg PO QPM 09/04/24 09/04/24 09/03/24 History
furosemide 40 mg tablet (Lasix) 40 mg PO DAILY 09/04/24 09/04/24 09/04/24 History
spironolactone 25 mg tablet 12.5 mg PO DAILY 09/04/24 09/04/24 09/04/24 History
umeclidinium 62.5 mcg-vilanterol 1 inh inhalation R DAILY@1300 09/04/24 09/04/24 09/04/24 History
25 mcg/actuation powdr for
inhalation (Anoro Ellipta)
Review of Systems
-
History Source: Patient
All other systems: Negative unless noted
Vitals / Labs / Diagnostic Testing
Vital Signs
Temp Pulse Resp BP Pulse Ox
97.6 F 78 17 106/58 94
09/05/24 07:32 09/05/24 07:32 09/05/24 07:32 09/05/24 08:44 09/05/24 07:32
Lab Data
09/04/24 13:35
09/04/24 13:35
Diagnostic Testing:
Physical Exam
-
HEENT: Normocephalic and Anicteric
Cardiovascular: S1/S2 and Peripheral Edema (negative)
Respiratory: Wheeze (negative), Rales (Bibasilar), Rhonchi (Bibasilar) and Non-Labored Respirations
GI: Soft, Non Distended, Non Tender and Normal Bowel Sounds
Neurology: AO x 3 and Tremors (negative)
Skin: Warm and Dry
General: Respiratory Distress (negative), Comfortable, Chills (negative) and Sweats (negative)
Assessment
-
Assessment: 84-year-old female with a past medical history of COPD, chronic HFrEF, deviated nasal septum s/p septoplasty, seasonal allergies, LBBB, valvular heart disease, history of WI s/p stents and osteopenia who presents with shortness of
breath. She was sent in to the ER by her PCP. Patient was desaturating to the 80s on room air. Patient has chronic cough productive of green/yellow mucus. Initial vitals showed she was afebrile to 97.6 �F, pulse rate 67, breathing at 18
breaths/min, BP 120/65 and saturating 94% on room air. Initial labs showed WBC 6.5, Hb 11.8, troponin 0.017, proBNP 4280 (7000 from 08/22/2024), and CXR showed RML atelectasis which is now chronic with small peripheral reticular nodular opacities
in the lower lung cárdenas consistent with chronic peripheral endobronchial infection with suspected chronic JUAN. There was a small right-sided pleural effusion and moderately exaggerated thoracic kyphosis. She was admitted to med/surg and pulmonary
service now consulted for additional management/recommendations.
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
disease with mitral regurgitation and aortic stenosis, history of WI s/p KASANDRA to LAD (06/12), osteopenia
Impression:
#Acute respiratory failure with hypoxia
#History of moderate COPD with hyperinflation and severe air trapping (T%, RV: 196% via PFT from 09/16/2016)
#Severe gas exchange capacity (DLco: 31%, DLco/VA: 25% via PFT from 09/16/2016)
#Chronic HFrEF with LVEF: 35-40% via TTE from 07/14/2024
#Moderate aortic stenosis with peak/mean gradients of 9/13 mmHg, respectively with mild/moderate TR and moderate MR via TTE from 07/14/2024
#Abnormal CT chest (08/22/2024) with peripheral lower lobe predominant endobronchial mucoid impaction with tree-in-bud nodular opacities/patchy nodular opacities and centrilobular emphysema
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
Plan:
- Continue with DuoNebs + budesonide; patient usually on a Anoro Ellipta at home; may need to start triple inhaler therapy upon discharge
- CXR shows bibasilar linear opacifications likely due to significant bronchial wall thickening and small airways disease with suspected chronic infection, with MAC being high on differential
- CT chest from 08/22/2024 showed significant upper lobe predominant centrilobular of edema with multiple bibasilar pulmonary nodules with consolidation in the right middle lobe, and patchy opacities in the inferior lingula and peripheral lower
lobes. Sputum culture was ordered at the last pulmonary office visit on 08/24/2024 but this is still pending
- Would collect a sputum culture now and sent for bacterial culture, fungus + AFB if patient able to produce a decent sample
- A bronchoscopy would be helpful, but lets first try a sputum Cx as state above to see if this shows any infection before we perform a bronch
- low threshold to start systemic steroids --> she is currently on room air and breathing comfortably, and denies SOB --> continue to monitor SpO2 and if SpO2 drops with exertion then would start steroids at that time
- Maintain SpO2 88-95% with supplemental O2 as needed
- Mucolytics with mucinex
- Imaging not consistent with acute CHF
- Continue home dosing of lasix
- Trend Hb and transfuse if needed to keep Hb>7g/dL
- Incentive spirometer encouraged q1hr while awake
- Replete electrolytes with K>4, Mg>2
- Maintain euglycemia with goal BG >100 and <180
- prn nebulized bronchodilators - not currently bronchospastic
- DVT ppx: Eliquis
Pulmonary service will continue to follow along. Continued outpatient follow-up will be arranged as last seen on 08/24/2024 by YANCY Stark.
Data:
CXR 09/04/2024:
1. 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
2. Moderate to severe emphysema in the upper lobes.
3. Severe chronic atelectasis in the right middle lobe.
4. Minimal right pleural effusion.
5. Mild cardiomegaly.
6. Chronic vertebral body endplate fractures of T12 with complete vertebral body collapse.
TTE 07/14/2024:
1. Left ventricle: Normal size with moderately reduced systolic function and
estimated ejection fraction of 35-40% by Hull's method of discs
2. Right ventricle: Normal
3. Atria: Biatrial dilation
4. Mitral valve: Moderate mitral regurgitation. Mitral annular calcification
is present
5. Aortic valve: Thickened trileaflet aortic valve with moderate aortic
stenosis. The peak and mean gradients are 9 and 13 mmHg respectively. The
estimated aortic valve area is 0.9 cm2 by the continuity equation when using an
LVOT diam of 2.0 cm. No aortic insufficiency.
6. Tricuspid valve: Mild to moderate tricuspid regurgitation with estimated
pulmonary artery systolic pressures of 25-30 mmHg
7. When compared to the most recent echocardiogram from 02/26/2023 there has
been no significant change
Total time spent today was 56 minutes for this encounter. Time includes reviewing laboratory test/imaging results, reviewing pertinent medical records, obtaining and reviewing medical history, performing an appropriate exam, ordering medications,
tests and procedures. Time also includes documentation of this encounter, coordinating patient care and communicating with other healthcare professionals. Total time does not include separately billed tests performed on this date of service.
--- NOTE | 2024-09-05 14:35 | PTCARENOTE ---
patient reports less sob and less cough, tolerating diet, vss, will continue to monitor.
[2024-09-05 15:05] VITALS: BP 115/97
--- NOTE | 2024-09-05 16:11 | VNURNOTE ---
Home Health Liaison met with patient at bedside to discuss [facility] nurse/therapy, visits, schedule and homebound status. Patient is agreeable and understands that visits at home will be 2-3 x per week to assess and teach medical management. [facility]
brochure provided with contact information. Patient is aware that [facility] will contact them for start of care in 1-2 days after discharge from .
[facility] referral completed in [facility].
--- NOTE | 2024-09-05 16:25 | CM ---
Alert awake oriented patient who lives with her SO Stephanie in a 2 story home with 2 steps to enter and 10 steps to bed/bathroom. She is independent in activates of daily living.She does not drive .She used a walker and a cane.Pt requested [facility]
Liaison aware.GO letter given explained and pt declined to sign GO. Copy on chart.
No VN in past . No SNF hx
Pharmacy [facility]
PCP Dr Bone
PLAN Home with [facility]
[2024-09-05] MEDS: LASIX 20 MG PO (17:27)
--- NOTE | 2024-09-05 18:15 | PTCARENOTE ---
ghanshyam texted Niall Quick and discussed if patient should be moved to private room. 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 will continue to monitor.
[2024-09-05 23:00] VITALS: BP 107/51
[2024-09-05] MEDS: COZAAR 50 MG PO (23:10)
[2024-09-06 06:00] VITALS: BMI 19.3
[2024-09-06 06:41] LABS: % Basophils 0.9 % (0-2); % Eosinophils 1.9 % (0-6); % Immature Granulocytes 0.5 % (0-0.5); % Monocytes 16.8 % (1.7-9.3); % Neutrophils 57.9 % (42.2-75.2); Absolute Basophils 0.1 10^3/uL (0-0.2); Absolute Eosinophils 0.1 10^3/uL (0-0.7); Absolute Lymphocytes 1.3 10^3/uL (1.2-3.4); Absolute Neutrophils 3.3 10^3/uL (1.4-6.5); Hematocrit 32.4 % (37.0-47.0); Hemoglobin 10.4 g/dL (12.0-16.0); Mean Corp Hgb Conc. 32.1 g/dL (33.0-37.0); Mean Corpuscular Hgb 32.6 pg (27.0-31.0); Mean Corpuscular Volume 101.6 fL (81.0-99.0); Mean Platelet Volume 10.3 fL (7.4-10.4); Nucleated Red Blood Cells % 0 %; Platelet Count 173 10^3/uL (130-400); Red Blood Cell Count 3.19 10^6/uL (4.20-5.40); Red Cell Dist. Width 14.1 % (11.5-14.5); White Blood Cell Count 5.7 10^3/uL (4.8-10.8)
[2024-09-06 06:57] LABS: Blood Urea Nitrogen 24 mg/dl (7-17); Calcium 8.7 mg/dl (8.4-10.2); Carbon Dioxide 26 mmol/L (22-30); Chloride 97 mmol/L (98-107); Estimated Creatinine Clearance 37 ml/min; Glucose 93 mg/dl (70-99); Potassium 3.9 mmol/L (3.5-5.1); Sodium 134 mmol/L (135-145)
[2024-09-06 07:40] VITALS: BP 132/77
[2024-09-06] MEDS: PULMICORT 0.5 MG INH ×2 (07:43→19:11)
[2024-09-06] MEDS: DUONEB 3 ML INH ×4 (07:43→19:11)
[2024-09-06 07:55] VITALS: BMI 19.3
[2024-09-06 09:23] VITALS: BP 83/66; BP 95/55; PULSE 81; PULSE 88; O2SAT 93
[2024-09-06] MEDS: COREG 3.125 MG PO (09:39)
[2024-09-06] MEDS: MUCINEX 600 MG PO ×2 (09:40→20:52)
[2024-09-06] MEDS: ALDACTONE 12.5 MG PO (09:40)
[2024-09-06] MEDS: DELTASONE 40 MG PO (09:40)
[2024-09-06] MEDS: ELIQUIS 2.5 MG PO ×2 (09:41→20:52)
[2024-09-06] MEDS: LASIX 40 MG PO (09:41)
[2024-09-06] MEDS: LIPITOR 40 MG PO (09:41)
[2024-09-06] MEDS: VITAMIN D3 (cholecalciferol) 50 MCG PO (09:41)
[2024-09-06 09:43] VITALS: BP 83/60; BP 94/53; BP 95/55; PULSE 88; PULSE 93; O2SAT 93
--- NOTE | 2024-09-06 09:45 | W.PN.HOSP.TC ---
Today's Communication/Plan
-
Sputum culture. Steroids. Possible bronchoscopy
Assessment / Plan
Assessment / Plan
Physical Exam
General: Comfortable and Conversant
HEENT: Anicteric and Moist mucous membranes; No Oxygen
Respiratory: Rales (Right base but otherwise clear) and Non Labored Respirations
Cardiac: S1/S2 and Regular Rhythm
GI: Soft and Non Tender
Rectal: Deferred by Provider
Musculoskeletal: No Clubbing, No Cyanosis and No Edema
Skin: Warm and Dry
Neuro: Awake, Alert, Oriented and Nonfocal/grossly intact
Psych: Calm
A/P:
Exertional Hypoxia - Imaging has raised concern for possible JUAN Infection
-Consult pulmonary appreciated--> discussed with pulmonary today (Dr Niall Quick) and awaiting for sputum culture and might need a bronchoscopy if sputum culture remains negative.
-Discussed with physician advisor from utilization department (Dr Diana Metzger) and further recommendations remains observation status.
-PT OT recommended skilled rehab.
-manager statistics consult for discharge disposition
-Assess pulse ox on ambulation
-Started on oral steroids per pulmonary
-Discussed with son over the phone today-he feels his mother is not safe to go home and would not be able to go other place than rehab
COPD exacerbation:
Continue oral steroids
Continue bronchodilators
Paroxysmal Atrial Fibrillation
-Continue Eliquis for anticoagulation
-Continue Coreg for rate control
Chronic HFrEF
-Continue Lasix and Spironolactone
-Monitor Is&Os and Daily Weights
Essential Hypertension
-Continue Coreg and Losartan
Hyperlipidemia
-Continue atorvastatin
DVT proph: Eliquis
Code Status: Full Code
Total time spent on today's encounter was 52 minutes which included time spent in counseling the patient/family regarding diagnosis and treatment plan as listed above, goals of care, and symptom management. Case was discussed with nursing staff,
specialists, and care coordinators/case management. All labs and imaging personally reviewed by me. Remainder the time spent in detailed review of previous records, lab data, imaging, and other medical provider documentation.
Anticipated Discharge: 24 - 48 hours
Subjective/Interval History
-
Date of Service: September 06, 2024
Patient on room air at rest. She does have shortness of breath on exertion. Denies chest pain. Afebrile
Objective Data
-
Labs:
Laboratory Results
09/06/24
05:03
WBC 5.7
Hgb 10.4 L
Hct 32.4 L
Plt Count 173
Sodium 134 L
Potassium 3.9
Chloride 97 L
Carbon Dioxide 26
BUN 24 H
Creatinine 1.0
Glucose 93
Calcium 8.7
Vital Signs:
Vital Signs
Temp Pulse Resp BP Pulse Ox
98.2 F 84 16 132/77 94
09/06/24 07:40 09/06/24 07:43 09/06/24 07:43 09/06/24 07:40 09/06/24 07:40
I&O
09/05/24 09/06/24 09/07/24
06:59 06:59 06:59
Intake Total 1470 / 1470
Balance 1470 / 1470
--- NOTE | 2024-09-06 11:28 | W.PN.PUL3 ---
Today's Communication / Plan
-
Treat for COPD exacerbation with prednisone and DuoNeb/budesonide
Maintain SpO2 88-95%
Up OOB as tolerated
PT/OT
Mucolytics
Eliquis
If sputum cultures remain negative by tomorrow then will set up for bronchoscopy this Wednesday for BAL + cell count
Pulmonary service will continue to follow along
Assessment
-
Assessment: 84-year-old female with a past medical history of COPD, chronic HFrEF, deviated nasal septum s/p septoplasty, seasonal allergies, LBBB, valvular heart disease, history of OH s/p stents and osteopenia who presents with shortness of
breath. She was sent in to the ER by her PCP. Patient was desaturating to the 80s on room air. Patient has chronic cough productive of green/yellow mucus. Initial vitals showed she was afebrile to 97.6 �F, pulse rate 67, breathing at 18
breaths/min, BP 120/65 and saturating 94% on room air. Initial labs showed WBC 6.5, Hb 11.8, troponin 0.017, proBNP 4280 (7000 from 08/22/2024), and CXR showed RML atelectasis which is now chronic with small peripheral reticular nodular opacities
in the lower lung cárdenas consistent with chronic peripheral endobronchial infection with suspected chronic JUAN. There was a small right-sided pleural effusion and moderately exaggerated thoracic kyphosis. She was admitted to med/surg and pulmonary
service now consulted for additional management/recommendations.
Chronic conditions CHANGE CONSULTANT: Moderate COPD/emphysema, chronic HFrEF, deviated nasal septum s/p septoplasty, seasonal allergies, hypercholesterolemia, neuropathy, gastritis, diverticulosis, hypothyroidism, history of ischemic colitis, LBBB, valvular heart
disease with mitral regurgitation and aortic stenosis, history of OH s/p KASANDRA to LAD (06/12), osteopenia
Impression:
#Acute respiratory failure with hypoxia (not on O2) and is improved
#History of moderate COPD with hyperinflation and severe air trapping (T%, RV: 196% via PFT from 09/16/2016) with acute exacerbation
#Severe gas exchange capacity (DLco: 31%, DLco/VA: 25% via PFT from 09/16/2016)
#Chronic HFrEF with LVEF: 35-40% via TTE from 07/14/2024
#Moderate aortic stenosis with peak/mean gradients of 9/13 mmHg, respectively with mild/moderate TR and moderate MR via TTE from 07/14/2024
#Abnormal CT chest (08/22/2024) with peripheral lower lobe predominant endobronchial mucoid impaction with tree-in-bud nodular opacities/patchy nodular opacities and centrilobular emphysema
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
Plan:
- Continue with DuoNebs + budesonide; patient usually on a Anoro Ellipta at home; may need to start triple inhaler therapy upon discharge
- CXR shows bibasilar linear opacifications likely due to significant bronchial wall thickening and small airways disease with suspected chronic infection, with MAC being high on differential
- CT chest from 08/22/2024 showed significant upper lobe predominant centrilobular of edema with multiple bibasilar pulmonary nodules with consolidation in the right middle lobe, and patchy opacities in the inferior lingula and peripheral lower
lobes. Sputum culture was ordered at the last pulmonary office visit on 08/24/2024 but this is still pending
- Sputum culture collected on 09/05/2024 and bacterial culture, fungus + AFB are all pending (of note, I am not checking AFB to ruke ou TB, it is to rule out NTM/MAC)
- If cultures remain negative by tomorrow then would set up for bronchoscopy this Wednesday for BAL with cell count with differential
-Given her shortness of breath with activity, concern for COPD exacerbation. Start [id number] daily and reduce as she clinically improves with taper
- Maintain SpO2 88-95% with supplemental O2 as needed
- Mucolytics with mucinex
- Imaging not consistent with acute CHF
- Continue home dosing of lasix
- Trend Hb and transfuse if needed to keep Hb>7g/dL
- Incentive spirometer encouraged q1hr while awake
- Replete electrolytes with K>4, Mg>2
- Maintain euglycemia with goal BG >100 and <180
- prn nebulized bronchodilators - not currently bronchospastic
- DVT ppx: Eliquis
Pulmonary service will continue to follow along. Continued outpatient follow-up will be arranged as last seen on 08/24/2024 by YANCY Stark.
Data:
CXR 09/04/2024:
1. 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
2. Moderate to severe emphysema in the upper lobes.
3. Severe chronic atelectasis in the right middle lobe.
4. Minimal right pleural effusion.
5. Mild cardiomegaly.
6. Chronic vertebral body endplate fractures of T12 with complete vertebral body collapse.
TTE 07/14/2024:
1. Left ventricle: Normal size with moderately reduced systolic function and
estimated ejection fraction of 35-40% by Hull's method of discs
2. Right ventricle: Normal
3. Atria: Biatrial dilation
4. Mitral valve: Moderate mitral regurgitation. Mitral annular calcification
is present
5. Aortic valve: Thickened trileaflet aortic valve with moderate aortic
stenosis. The peak and mean gradients are 9 and 13 mmHg respectively. The
estimated aortic valve area is 0.9 cm2 by the continuity equation when using an
LVOT diam of 2.0 cm. No aortic insufficiency.
6. Tricuspid valve: Mild to moderate tricuspid regurgitation with estimated
pulmonary artery systolic pressures of 25-30 mmHg
7. When compared to the most recent echocardiogram from 02/26/2023 there has
been no significant change
Total time spent today was 38 minutes for this encounter. Time includes reviewing laboratory test/imaging results, reviewing pertinent medical records, obtaining and reviewing medical history, performing an appropriate exam, ordering medications,
tests and procedures. Time also includes documentation of this encounter, coordinating patient care and communicating with other healthcare professionals. Total time does not include separately billed tests performed on this date of service.
Subjective Data
-
Date of Service:
Date of Service: September 06, 2024
Chief Complaint: Pulmonary Follow Up
Subjective:
Patient seen and evaluated today at bedside. Currently on room air breathing comfortably. Coughing up loose, green phlegm. Denies chest pain, COPE, nausea, fevers or chills.
Review of Systems
General: Other (Negative unless mentioned above)
Objective Data
Data Reviewed
Vital Signs / I&O / Oxygen:
Vital Signs
Temp Pulse Resp BP Pulse Ox
98.2 F 81 16 132/77 94
09/06/24 07:40 09/06/24 11:10 09/06/24 11:10 09/06/24 07:40 09/06/24 07:40
Intake and Output
09/05/24 09/06/24 09/07/24
06:59 06:59 06:59
Intake Total 1470 / 1470
Balance 1470 / 1470
SaO2 94
Physical Exam
General: Respiratory Distress (negative), Comfortable, Chills (negative) and Sweats (negative)
HEENT: Normocephalic and Anicteric
Cardiovascular: S1-S2 and Peripheral Edema (negative)
Respiratory: Wheeze (negative), Crackles (Bibasilar), Rhonchi (negative), Non-Labored Respirations and Stridor (negative)
GI: Soft, Non Distended, Non Tender and Normal Bowel Sounds
Neurology: AO x 3 and Tremors (negative)
Skin: Warm, Dry, Cyanosis (negative) and Jaundice (negative)
Labs/Micro/Reports
Lab Data
09/06/24 05:03
09/06/24 05:03
Microbiology
09/05/24 16:50 Sputum Fungal Culture - Preliminary
Culture in progress.
Positive cultures are reported as soon as detected.
Final report to follow in four to five weeks.
09/05/24 16:50 Sputum Gram Stain - Preliminary
[2024-09-06 15:37] VITALS: BP 119/74
[2024-09-06] MEDS: LASIX 20 MG PO (16:58)
--- NOTE | 2024-09-06 17:11 | CM ---
PT OT indicated SNF.
MD consult for SNF placement.
Spoke with pt she said she does not want to go to SNF.She lives alone.
PAC data reviewed. Pt picked [facility].
Referral in [facility].
PLAN Locate SNF and obtained auth
[2024-09-06] MEDS: COREG PO (20:52)
[2024-09-06] MEDS: COZAAR 50 MG PO (22:02)
[2024-09-06 23:45] VITALS: BP 108/50
[2024-09-07 06:00] VITALS: BMI 19.1
[2024-09-07 07:55] VITALS: BP 109/62
[2024-09-07] MEDS: DUONEB 3 ML INH ×4 (08:00→19:08)
[2024-09-07] MEDS: PULMICORT 0.5 MG INH ×2 (08:01→19:08)
[2024-09-07] MEDS: LIPITOR 40 MG PO (08:13)
[2024-09-07] MEDS: ALDACTONE 12.5 MG PO (08:13)
[2024-09-07] MEDS: ELIQUIS 2.5 MG PO ×2 (08:13→20:44)
[2024-09-07] MEDS: DELTASONE 40 MG PO (08:13)
[2024-09-07] MEDS: MUCINEX 600 MG PO ×2 (08:13→20:43)
[2024-09-07] MEDS: LASIX 40 MG PO (08:13)
[2024-09-07] MEDS: COREG PO (08:13)
[2024-09-07] MEDS: VITAMIN D3 (cholecalciferol) 50 MCG PO (08:14)
--- NOTE | 2024-09-07 08:53 | W.PN.HOSP.TC ---
Today's Communication/Plan
-
IV antibiotics. Pulmonary re-eval
Assessment / Plan
Assessment / Plan
Physical Exam
General: Comfortable and Conversant
HEENT: Anicteric and Moist mucous membranes; No Oxygen
Respiratory: Rales (Right base but otherwise clear) and Non Labored Respirations
Cardiac: S1/S2 and Regular Rhythm
GI: Soft and Non Tender
Rectal: Deferred by Provider
Musculoskeletal: No Clubbing, No Cyanosis and No Edema
Skin: Warm and Dry
Neuro: Awake, Alert, Oriented and Nonfocal/grossly intact
Psych: Calm
A/P:
Exertional Hypoxia - Imaging has raised concern for possible JUAN Infection
-Consult pulmonary appreciated--> discussed with pulmonary yesterday and awaiting for sputum culture and might need a bronchoscopy if sputum culture remains negative. Today sputum culture grows Pseudomonas aeruginosa so for now we will start her on
IV cefepime and will follow-up further pulmonary recommendations.
-PT OT recommended skilled rehab.
-social work case manager consult for discharge disposition
-Assess pulse ox on ambulation
-Started on oral steroids per pulmonary
-Discussed with son over the phone yesterday
COPD exacerbation:
Continue oral steroids
Continue bronchodilators
Probable Pseudomonas pneumonia, POA:
Sputum culture with Pseudomonas
Start IV cefepime
Follow-up further recommendations from pulmonary
Paroxysmal Atrial Fibrillation
-Continue Eliquis for anticoagulation
-Continue Coreg for rate control
Chronic HFrEF
-Continue Lasix and Spironolactone
-Monitor Is&Os and Daily Weights
Essential Hypertension
-Continue Coreg and Losartan
Hyperlipidemia
-Continue atorvastatin
DVT proph: Eliquis
Code Status: Full Code
Total time spent on today's encounter was 52 minutes which included time spent in counseling the patient/family regarding diagnosis and treatment plan as listed above, goals of care, and symptom management. Case was discussed with nursing staff,
specialists, and care coordinators/case management. All labs and imaging personally reviewed by me. Remainder the time spent in detailed review of previous records, lab data, imaging, and other medical provider documentation.
Anticipated Discharge: 24 - 48 hours
Subjective/Interval History
-
Date of Service: September 07, 2024
Patient remains on room air and feels better at rest. Still BAUTISTA.
Objective Data
-
Vital Signs:
Vital Signs
Temp Pulse Resp BP Pulse Ox
98.4 F 83 16 109/62 96
09/07/24 07:55 09/07/24 08:03 09/07/24 08:03 09/07/24 07:55 09/07/24 08:03
I&O
09/06/24 09/07/24 09/08/24
06:59 06:59 06:59
Intake Total 1470 / 1470 1240 / 1240
Balance 1470 / 1470 1240 / 1240
--- NOTE | 2024-09-07 08:55 | W.PN.PUL3 ---
Today's Communication / Plan
-
Treat for COPD exacerbation with prednisone and DuoNeb/budesonide
Start cefepime and follow-up sputum culture sensitivities, which has grown Pseudomonas aeruginosa
Recommend to treat for 7-10 days, possibly even 14 given the chronicity of this infection
She will need repeat imaging with CT chest in 4 to 6 weeks to follow-up her tree-in-bud nodular opacities/nodules and assess for resolution versus persistence/progression
Maintain SpO2 88-95%
Up OOB as tolerated
PT/OT
Mucolytics
Eliquis
Will arrange for outpatient follow-up and if she continues to be symptomatic at that time then we will discuss bronchoscopy
No additional recommendations at this time. Pulmonary service will now sign off. Please reconsult if there are any additional questions/concerns, or if patient's respiratory status deteriorates.
Assessment
-
Assessment: 84-year-old female with a past medical history of COPD, chronic HFrEF, deviated nasal septum s/p septoplasty, seasonal allergies, LBBB, valvular heart disease, history of [place] s/p stents and osteopenia who presents with shortness of
breath. She was sent in to the ER by her PCP. Patient was desaturating to the 80s on room air. Patient has chronic cough productive of green/yellow mucus. Initial vitals showed she was afebrile to 97.6 �F, pulse rate 67, breathing at 18
breaths/min, BP 120/65 and saturating 94% on room air. Initial labs showed WBC 6.5, Hb 11.8, troponin 0.017, proBNP 4280 (7000 from 08/22/2024), and CXR showed RML atelectasis which is now chronic with small peripheral reticular nodular opacities
in the lower lung cárdenas consistent with chronic peripheral endobronchial infection with suspected chronic JUAN. There was a small right-sided pleural effusion and moderately exaggerated thoracic kyphosis. She was admitted to med/surg and pulmonary
service now consulted for additional management/recommendations.
Chronic conditions FILLETER: Moderate COPD/emphysema, chronic HFrEF, deviated nasal septum s/p septoplasty, seasonal allergies, hypercholesterolemia, neuropathy, gastritis, diverticulosis, hypothyroidism, history of ischemic colitis, LBBB, valvular heart
disease with mitral regurgitation and aortic stenosis, history of [place] s/p KASANDRA to LAD (06/12), osteopenia
Impression:
#Acute respiratory failure with hypoxia (not on O2) and is improved
#Positive sputum culture from 09/05/2024 now growing Pseudomonas aeruginosa -given her tree-in-bud nodular opacities on CT chest from 08/22/2024, this infection could explain this
#History of moderate COPD with hyperinflation and severe air trapping (T%, RV: 196% via PFT from 09/16/2016) with acute exacerbation
#Severe gas exchange capacity (DLco: 31%, DLco/VA: 25% via PFT from 09/16/2016)
#Chronic HFrEF with LVEF: 35-40% via TTE from 07/14/2024
#Moderate aortic stenosis with peak/mean gradients of 9/13 mmHg, respectively with mild/moderate TR and moderate MR via TTE from 07/14/2024
#Abnormal CT chest (08/22/2024) with peripheral lower lobe predominant endobronchial mucoid impaction with tree-in-bud nodular opacities/patchy nodular opacities and centrilobular emphysema
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
Plan:
- Continue with DuoNebs + budesonide; patient usually on a Anoro Ellipta at home; would start triple inhaler therapy upon discharge with either Breztri or Trelegy 200mcg
- CXR shows bibasilar linear opacifications likely due to significant bronchial wall thickening and small airways disease with suspected chronic infection, with MAC being high on differential
- CT chest from 08/22/2024 showed significant upper lobe predominant centrilobular of edema with multiple bibasilar pulmonary nodules with consolidation in the right middle lobe, and patchy opacities in the inferior lingula and peripheral lower
lobes. Sputum culture was ordered at the last pulmonary office visit on 08/24/2024 but this is still pending
- Sputum culture collected on 09/05/2024 he is growing Pseudomonas aeruginosa --> sensitivities pending; follow up bacterial culture, fungus + AFB are all pending (of note, I am not checking AFB to rule out TB, it is to rule out NTM/MAC)
- Continue cefepime
- Given that this respiratory culture is now positive, recommend to treat this infection for at least 7-10 days, possibly 14 days with repeat imaging in 4-6 weeks and outpatient follow-up
- If she continues to be symptomatic as an outpatient then we will discuss bronchoscopy in the outpatient setting
- Given her shortness of breath with activity, concern for COPD exacerbation. Started prednisone 40mg daily and reduce by 10mg every 5th day until off
- Maintain SpO2 88-95% with supplemental O2 as needed
- Mucolytics with mucinex
- Imaging not consistent with acute CHF
- Continue home dosing of lasix
- Trend Hb and transfuse if needed to keep Hb>7g/dL
- Incentive spirometer encouraged q1hr while awake
- Replete electrolytes with K>4, Mg>2
- Maintain euglycemia with goal BG >100 and <180
- prn nebulized bronchodilators - not currently bronchospastic
- DVT ppx: Eliquis
Patient on room air, and is subjectively improving with improved cough and improved SOB. Check home O2 assessment prior to discharge. Continue with antibiotics above and follow-up sputum culture sensitivities. Will treat for at least 7-10 days
given the chronicity of this infection. Continued outpatient follow-up will be arranged as last seen on 08/24/2024 by YANCY Stark. If she continues to be symptomatic as an outpatient then we will discuss bronchoscopy for BAL and cell count
with differential.
No additional recommendations at this time. Pulmonary service will now sign off. Thank you for allowing us to be involved in the care of this patient. Please reconsult if there are any additional questions/concerns, or if patient's respiratory
status deteriorates.
Data:
CXR 09/04/2024:
1. 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
2. Moderate to severe emphysema in the upper lobes.
3. Severe chronic atelectasis in the right middle lobe.
4. Minimal right pleural effusion.
5. Mild cardiomegaly.
6. Chronic vertebral body endplate fractures of T12 with complete vertebral body collapse.
TTE 07/14/2024:
1. Left ventricle: Normal size with moderately reduced systolic function and
estimated ejection fraction of 35-40% by Hull's method of discs
2. Right ventricle: Normal
3. Atria: Biatrial dilation
4. Mitral valve: Moderate mitral regurgitation. Mitral annular calcification
is present
5. Aortic valve: Thickened trileaflet aortic valve with moderate aortic
stenosis. The peak and mean gradients are 9 and 13 mmHg respectively. The
estimated aortic valve area is 0.9 cm2 by the continuity equation when using an
LVOT diam of 2.0 cm. No aortic insufficiency.
6. Tricuspid valve: Mild to moderate tricuspid regurgitation with estimated
pulmonary artery systolic pressures of 25-30 mmHg
7. When compared to the most recent echocardiogram from 02/26/2023 there has
been no significant change
Total time spent today was 35 minutes for this encounter. Time includes reviewing laboratory test/imaging results, reviewing pertinent medical records, obtaining and reviewing medical history, performing an appropriate exam, ordering medications,
tests and procedures. Time also includes documentation of this encounter, coordinating patient care and communicating with other healthcare professionals. Total time does not include separately billed tests performed on this date of service.
Subjective Data
-
Date of Service:
Date of Service: September 07, 2024
Chief Complaint: Pulmonary Follow Up
Subjective:
Patient was seen and evaluated today at bedside. Afebrile overnight. Sputum culture from 09/05/2024 is growing Pseudomonas aeruginosa. She is currently on room air and breathing comfortably. She says that her cough is better and no shortness of
breath at rest. Still gets short of breath with activity. No chest pain, COPE, abdominal pain, nausea, fevers or chills.
Review of Systems
General: Other (Negative unless mentioned above)
Objective Data
Data Reviewed
Vital Signs / I&O / Oxygen:
Vital Signs
Temp Pulse Resp BP Pulse Ox
98.4 F 83 16 109/62 96
09/07/24 07:55 09/07/24 08:03 09/07/24 08:03 09/07/24 07:55 09/07/24 08:03
Intake and Output
09/06/24 09/07/24 09/08/24
06:59 06:59 06:59
Intake Total 1470 / 1470 1240 / 1240
Balance 1470 / 1470 1240 / 1240
SaO2 96
Physical Exam
General: Respiratory Distress (negative), Comfortable, Chills (negative) and Sweats (negative)
HEENT: Normocephalic and Anicteric
Cardiovascular: S1-S2 and Peripheral Edema (negative)
Respiratory: Wheeze (negative), Crackles (Bibasilar), Rhonchi (negative), Non-Labored Respirations and Stridor (negative)
GI: Soft, Non Distended, Non Tender and Normal Bowel Sounds
Neurology: AO x 3 and Tremors (negative)
Skin: Warm, Dry, Cyanosis (negative) and Jaundice (negative)
Labs/Micro/Reports
Lab Data
09/06/24 05:03
09/06/24 05:03
Microbiology
09/05/24 16:50 Sputum Respiratory Culture - Preliminary
09/05/24 16:50 Sputum Gram Stain - Preliminary
09/05/24 16:50 Sputum Fungal Culture - Preliminary
Culture in progress.
Positive cultures are reported as soon as detected.
Final report to follow in four to five weeks.
--- NOTE | 2024-09-07 11:28 | CM ---
gun club manager reviewed patient's chart and discussed patient progress with physical therapy and recommendation for skilled placement, patient is refusing skilled placement, adult protective caseworker discussed possible homecare services after discharge and patient
reports that she will think about a visiting nurse.
Plan; Patient is declined skilled placement.
[2024-09-07] MEDS: MAXIPIME 2000 MG IV ×2 (13:33→23:05)
[2024-09-07] MEDS: STERILE WATER FOR INJECTION 10 ML IV ×2 (13:34→23:05)
[2024-09-07 15:29] VITALS: BP 124/61
[2024-09-07] MEDS: LASIX 20 MG PO (18:39)
[2024-09-07] MEDS: COREG 3.125 MG PO (20:44)
[2024-09-07] MEDS: COZAAR 50 MG PO (22:42)
[2024-09-07 23:00] VITALS: BP 91/50
[2024-09-07 23:10] VITALS: BP 110/62
[2024-09-08 06:31] LABS: % Basophils 0.1 % (0-2); % Eosinophils 0.1 % (0-6); % Immature Granulocytes 0.6 % (0-0.5); % Monocytes 12.3 % (1.7-9.3); % Neutrophils 75.9 % (42.2-75.2); Absolute Immature Granulocytes 0.1 10^3/uL (0-0.05); Absolute Monocytes 1.1 10^3/uL (0.1-0.6); Absolute Neutrophils 6.9 10^3/uL (1.4-6.5); Hemoglobin 10.3 g/dL (12.0-16.0); Mean Corp Hgb Conc. 32.2 g/dL (33.0-37.0); Mean Corpuscular Hgb 32.4 pg (27.0-31.0); Mean Corpuscular Volume 100.6 fL (81.0-99.0); Mean Platelet Volume 10.5 fL (7.4-10.4); Nucleated Red Blood Cells % 0 %; Platelet Count 174 10^3/uL (130-400); Red Blood Cell Count 3.18 10^6/uL (4.20-5.40); Red Cell Dist. Width 13.8 % (11.5-14.5); White Blood Cell Count 9.1 10^3/uL (4.8-10.8)
[2024-09-08 06:49] LABS: Blood Urea Nitrogen 27 mg/dl (7-17); Calcium 8.6 mg/dl (8.4-10.2); Carbon Dioxide 25 mmol/L (22-30); Chloride 99 mmol/L (98-107); Estimated Creatinine Clearance 37 ml/min; Glucose 97 mg/dl (70-99); Potassium 3.7 mmol/L (3.5-5.1); Sodium 136 mmol/L (135-145)
[2024-09-08] MEDS: DUONEB 3 ML INH ×4 (07:28→20:07)
[2024-09-08] MEDS: PULMICORT 0.5 MG INH ×2 (07:28→20:07)
[2024-09-08 08:05] VITALS: BP 149/69
[2024-09-08] MEDS: ALDACTONE 12.5 MG PO (08:57)
[2024-09-08] MEDS: LASIX 40 MG PO (08:57)
[2024-09-08] MEDS: DELTASONE 40 MG PO (08:57)
[2024-09-08] MEDS: MUCINEX 600 MG PO ×2 (08:57→20:44)
[2024-09-08] MEDS: ELIQUIS 2.5 MG PO ×2 (08:59→20:44)
[2024-09-08] MEDS: VITAMIN D3 (cholecalciferol) 50 MCG PO (08:59)
[2024-09-08] MEDS: LIPITOR 40 MG PO (08:59)
[2024-09-08] MEDS: COREG 3.125 MG PO ×2 (08:59→20:44)
--- NOTE | 2024-09-08 10:06 | W.PN.HOSP.TC ---
Today's Communication/Plan
-
IV antibiotics. Steroids. PT OT
Assessment / Plan
Assessment / Plan
Physical Exam
General: Comfortable and Conversant
HEENT: Anicteric and Moist mucous membranes; No Oxygen
Respiratory: Rales (Right base but otherwise clear) and Non Labored Respirations
Cardiac: S1/S2 and Regular Rhythm
GI: Soft and Non Tender
Rectal: Deferred by Provider
Musculoskeletal: No Clubbing, No Cyanosis and No Edema
Skin: Warm and Dry
Neuro: Awake, Alert, Oriented and Nonfocal/grossly intact
Psych: Calm
A/P:
Acute COPD exacerbation:
Continue oral prednisone
Continue bronchodilators
PT OT eval
Discussed with son over the phone today on 09/08
Pseudomonas pneumonia:
Continue IV cefepime
Follow-up cultures and sensitivity of Pseudomonas
Less likely MAC since we have an alternative explanation
Paroxysmal atrial fibrillation:
Continue rate control beta-may
Continue anticoagulation with Eliquis
Chronic systolic CHF:
Continue diuretic
Monitoring in and out and daily weight
Hypertension:
Continue usual meds
Hyperlipidemia:
Continue home statin
DVT prophylaxis:
Eliquis
CODE STATUS:
Full code
Anticipated Discharge: > 48 hours
Subjective/Interval History
-
Date of Service: September 08, 2024
Patient feels better overall. Less shortness of breath. Afebrile
Objective Data
-
Labs:
Laboratory Results
09/08/24
05:20
WBC 9.1
Hgb 10.3 L
Hct 32.0 L
Plt Count 174
Sodium 136
Potassium 3.7
Chloride 99
Carbon Dioxide 25
BUN 27 H
Creatinine 1.0
Glucose 97
Calcium 8.6
Vital Signs:
Vital Signs
Temp Pulse Resp BP Pulse Ox
97.7 F 90 17 149/69 98
09/08/24 08:05 09/08/24 08:59 09/08/24 08:05 09/08/24 08:59 09/08/24 08:05
I&O
09/07/24 09/08/24 09/09/24
06:59 06:59 06:59
Intake Total 1240 / 1240 900 / 900
Balance 1240 / 1240 900 / 900
[2024-09-08 10:19] VITALS: BMI 19.3
[2024-09-08 10:53] VITALS: BP 121/74; PULSE 93; O2SAT 95
--- NOTE | 2024-09-08 11:03 | CM ---
CM following re: discharge planning.
Reviewed pt's chart, met with pt.
PT and OT updated evaluations noted - home PT/OT recommended. Pt is aware, expressed her agreement and pt requested VN. [facility]. [facility] liaison following. Pt stated she livers alone 2SH, has a cane and a walker and son Quinten lives
nearby and helps as needed. Pt stated her son Quinten will transport home at discharge.
IMM reviewed, placed on chart, pt has a copy.
Please fax discharge instructions to [facility] at [phone]
D/C plan: home with [facility] and family support. Son Quinten to transport.
CM will follow with discharge plan updates as needed.
[2024-09-08] MEDS: STERILE WATER FOR INJECTION 10 ML IV (12:30)
[2024-09-08] MEDS: MAXIPIME 2000 MG IV (12:31)
--- NOTE | 2024-09-08 12:34 | VNURNOTE ---
[facility] liaison spoke with patient at bedside. Confirmed she is agreeable to [facility]. Brochure w/contact # at bedside. Patient aware [facility] will contact her within 1-2 days after DC home for start of care visit. [facility] referral accepted in [facility].
[2024-09-08 15:26] VITALS: BP 119/53
--- NOTE | 2024-09-08 16:29 | PTCARENOTE ---
patient with less sob and less cough, tolerating diet, transfers with her own cane independently to chair and bathroom, vss, will continue to monitor.
[2024-09-08] MEDS: LASIX 20 MG PO (17:09)
--- NOTE | 2024-09-08 17:09 | PTCARENOTE ---
patient reports LBM last night
[2024-09-08] MEDS: COZAAR 50 MG PO (20:44)
[2024-09-08 20:50] VITALS: BP 135/63
[2024-09-08] MEDS: TYLENOL 650 MG PO (20:58)
[2024-09-08 23:00] VITALS: BP 124/71
[2024-09-09] MEDS: STERILE WATER FOR INJECTION 10 ML IV ×3 (00:34→23:46)
[2024-09-09] MEDS: MAXIPIME 2000 MG IV ×3 (00:34→23:47)
[2024-09-09] MEDS: FLUSH (NSS) 1 FLUSH IV ×2 (00:35→23:47)
[2024-09-09 06:00] VITALS: BMI 19.2
[2024-09-09] MEDS: PULMICORT 0.5 MG INH ×2 (07:24→20:30)
[2024-09-09] MEDS: DUONEB 3 ML INH ×4 (07:24→20:30)
[2024-09-09 08:07] VITALS: BP 119/64
[2024-09-09 08:36] LABS: Hematocrit 34.9 % (37.0-47.0); Hemoglobin 11.3 g/dL (12.0-16.0)
[2024-09-09 08:57] LABS: Blood Urea Nitrogen 31 mg/dl (7-17); Calcium 8.8 mg/dl (8.4-10.2); Carbon Dioxide 25 mmol/L (22-30); Chloride 99 mmol/L (98-107); Estimated Creatinine Clearance 37 ml/min; Glucose 88 mg/dl (70-99); Magnesium 2.4 mg/dl (1.6-2.3); Sodium 135 mmol/L (135-145)
--- NOTE | 2024-09-09 09:08 | W.PN.HOSP.TC ---
Today's Communication/Plan
-
IV antibiotics. Steroids
Assessment / Plan
Assessment / Plan
Physical Exam
General: Comfortable and Conversant
HEENT: Anicteric and Moist mucous membranes; No Oxygen
Respiratory: Rales (Right base but otherwise clear) and Non Labored Respirations
Cardiac: S1/S2 and Regular Rhythm
GI: Soft and Non Tender
Rectal: Deferred by Provider
Musculoskeletal: No Clubbing, No Cyanosis and No Edema
Skin: Warm and Dry
Neuro: Awake, Alert, Oriented and Nonfocal/grossly intact
Psych: Calm
A/P:
Acute COPD exacerbation:
Continue oral prednisone, continue to taper
Continue bronchodilators
PT OT eval
Discussed with son over the phone on 09/08
Check for home oxygen needs
Pseudomonas pneumonia:
Continue IV cefepime and will switch to oral tomorrow, most likely Levaquin to complete 14 days course. EKG checked and QTc down to 485.
Follow-up cultures and sensitivity of Pseudomonas
Less likely MAC since we have an alternative explanation
Paroxysmal atrial fibrillation:
Continue rate control beta-may
Continue anticoagulation with Eliquis
Chronic systolic CHF:
Continue diuretic
Monitoring in and out and daily weight
Hypertension:
Continue usual meds
Hyperlipidemia:
Continue home statin
DVT prophylaxis:
Eliquis
CODE STATUS:
Full code
Anticipated Discharge: Within 24 hours
Subjective/Interval History
-
Date of Service: September 09, 2024
Patient feels better overall. Afebrile.
Objective Data
-
Labs:
Laboratory Results
09/09/24
08:15
Hgb 11.3 L
Hct 34.9 L
Sodium 135
Potassium 4.0
Chloride 99
Carbon Dioxide 25
BUN 31 H
Creatinine 1.0
Glucose 88
Calcium 8.8
Vital Signs:
Vital Signs
Temp Pulse Resp BP Pulse Ox
97.9 F 88 16 119/64 93
09/09/24 08:07 09/09/24 08:07 09/09/24 08:07 09/09/24 08:07 09/09/24 08:07
I&O
09/08/24 09/09/24 09/10/24
06:59 06:59 06:59
Intake Total 900 / 900 960 / 960
Balance 900 / 900 960 / 960
[2024-09-09] MEDS: DELTASONE 30 MG PO (09:17)
[2024-09-09] MEDS: MUCINEX 600 MG PO ×2 (09:17→21:14)
[2024-09-09] MEDS: VITAMIN D3 (cholecalciferol) 50 MCG PO (09:17)
[2024-09-09] MEDS: ALDACTONE 12.5 MG PO (09:17)
[2024-09-09] MEDS: ELIQUIS 2.5 MG PO ×2 (09:17→21:15)
[2024-09-09] MEDS: COREG 3.125 MG PO ×2 (09:18→21:15)
[2024-09-09] MEDS: TYLENOL 650 MG PO ×2 (09:18→21:21)
[2024-09-09] MEDS: LIPITOR 40 MG PO (09:18)
[2024-09-09] MEDS: LASIX 40 MG PO (09:18)
[2024-09-09] MEDS: FLUSH (NSS) 2 FLUSH IV (12:57)
[2024-09-09 15:42] VITALS: BP 127/91
[2024-09-09] MEDS: LASIX 20 MG PO (17:37)
[2024-09-09] MEDS: COZAAR 50 MG PO (21:15)
[2024-09-09 23:00] VITALS: BP 114/67
[2024-09-10 06:00] VITALS: BMI 19.4
[2024-09-10 07:00] VITALS: BP 140/86
[2024-09-10] MEDS: DUONEB 3 ML INH (07:29)
[2024-09-10] MEDS: PULMICORT 0.5 MG INH (07:30)
--- NOTE | 2024-09-10 08:37 | W.PN.HOSP.TC ---
Today's Communication/Plan
-
Discharge planning today
Assessment / Plan
Assessment / Plan
Physical exam:
General: Well Developed, Well Nourished and No Apparent Distress
HEENT: Normocephalic, Atraumatic and Moist Mucous Membranes
Respiratory: Clear to Auscultation; Negative Wheezes, Rales or Rhonchi
Cardiac: Regular Rhythm and S1/S2
GI: Soft, Nontender and Nondistended
Musculoskeletal: No Clubbing, No Cyanosis and No Edema
Neuro: Awake, Alert and Oriented
Psych: Calm
A/P:
Acute COPD exacerbation:
Continue oral prednisone, continue to taper
Continue bronchodilators
PT OT eval
Discussed with son at bedside today
Check for home oxygen needs
Patient medically ready for discharge today
Pseudomonas pneumonia:
Change IV cefepime to oral Levaquin today. EKG checked and QTc down to 485.
Reviewed culture and sensitivities Pseudomonas
Less likely MAC since we have an alternative explanation
Paroxysmal atrial fibrillation:
Continue rate control beta-may
Continue anticoagulation with Eliquis
Chronic systolic CHF:
Continue diuretic
Monitoring in and out and daily weight
Hypertension:
Continue usual meds
Hyperlipidemia:
Continue home statin
DVT prophylaxis:
Eliquis
CODE STATUS:
Full code
Anticipated Discharge: Today
Subjective/Interval History
-
Date of Service: September 10, 2024
Patient feels well and back to baseline.
Objective Data
-
Vital Signs:
Vital Signs
Temp Pulse Resp BP Pulse Ox
97.4 F 88 16 140/86 98
09/10/24 07:00 09/10/24 07:37 09/10/24 07:37 09/10/24 07:00 09/10/24 07:37
I&O
09/09/24 09/10/24 09/11/24
06:59 06:59 06:59
Intake Total 960 / 960 680 / 680
Balance 960 / 960 680 / 680
--- NOTE | 2024-09-10 09:48 | W.DCSUMMARY ---
Discharge Summary
Discharge Data
Date of Admission: 09/06/24
Date of Discharge: 09/10/24
-
Pending Results: No
Hospital Course
Patient 84 years old female with history of COPD, CHF, seasonal allergies, deviated nasal septum with septoplasty, valvular heart disease, CAD, osteopenia, LBBB, presented to the hospital with shortness of breath and hypoxia. Patient had cough with
discoloration of sputum production. Pulmonary consulted. Patient was felt to have COPD exacerbation and started on steroids tapering course. There was some initial concerns for JUAN but after further diagnostic tests she was diagnosed with
pneumonia from Pseudomonas. Patient had a sputum culture consistent with Pseudomonas pneumonia. Patient did well rest of hospital stay. She was treated with IV cefepime and later on switched to oral Levaquin based on sensitivities and QTc
acceptable. Patient worked with PT and OT and recommended home health, and on home oxygen assessment she did not require oxygen. Patient will be discharged in relatively stable condition today.
Discharge duration: 32 minutes
Discharge Plan
-
Patient Disposition: Home with Home Care
Discharge Diagnosis/Procedures: Chronic obstructive pulmonary disease exacerbation. Pseudomonas pneumonia.
Diet: Low Cholesterol
Activity: As tolerated
Driving Restrictions: As prior to admission
Blood Work: Please PCP to order CBC, BMP within week
Other Services: VN, PT and OT
Referrals:
Diana Bone MD [Family Provider] - in less than 1 week
Marcelo Rose MD [Active] - in two to four weeks
Prescriptions:
New
prednisone 10 mg Tablet
See Rx Instructions .ROUTE .COMPLEX Qty: 30 0RF
Rx Instructions:
Take By Mouth:
40 mg daily x3 days, 30 mg daily x3 days,
20 mg daily x3 days, 10 mg daily x3 days.
levofloxacin 750 mg Tablet
750 mg PO DAILY 10 Days Qty: 10 0RF
Continued
alendronate 70 MG tablet
70 mg PO SA
losartan 50 mg tablet
50 mg PO HS
acetaminophen 650 mg Tablet Extended Release
1,300 mg PO BID
cholecalciferol (vitamin D3) 50 mcg (2,000 unit) Tablet
50 mcg PO DAILY
atorvastatin 40 MG tablet
40 mg PO DAILY
Eliquis 2.5 mg Tablet
2.5 mg PO BID Qty: 90 2RF
furosemide 40 mg Tablet
20 mg PO QPM
spironolactone 25 mg Tablet
12.5 mg PO DAILY
carvedilol 3.125 mg Tablet
3.125 mg PO BID
albuterol sulfate 90 mcg/actuation Hfa Aerosol Inhaler
1 inh INHALATION R QID
Anoro Ellipta 62.5-25 mcg/actuation Blister With Device
1 inh INHALATION R DAILY@1300
furosemide [Lasix] 40 mg tablet
40 mg PO DAILY
Discharge Orders:
Discharge Patient (As Directed); Ordered 09/10/24
Ordered By: Yovany Parada
Discharge Date and Time
Discharge Date/Time: 09/10/24 11:34
Print Language: GEORGIAN
[2024-09-10] MEDS: LASIX 40 MG PO (10:48)
[2024-09-10] MEDS: DELTASONE 30 MG PO (10:48)
[2024-09-10] MEDS: ELIQUIS 2.5 MG PO (10:48)
[2024-09-10] MEDS: LIPITOR 40 MG PO (10:48)
[2024-09-10] MEDS: VITAMIN D3 (cholecalciferol) 50 MCG PO (10:48)
[2024-09-10] MEDS: LEVAQUIN 750 MG PO (10:48)
[2024-09-10] MEDS: MUCINEX 600 MG PO (10:49)
[2024-09-10] MEDS: ALDACTONE 12.5 MG PO (11:09)
[2024-09-10] MEDS: COREG 3.125 MG PO (11:10)
[2024-09-10] MEDS: DUONEB INH (11:23)
[2024-09-10 11:27] VITALS: BP 136/82
--- NOTE | 2024-09-10 11:28 | CM ---
Received notification that patient is discharged. Met with patient who is still agreeable to VN. Referral made. Reviewed IMM. It is signed and on chart. Son will transport home.
Plan: Case management will continue to follow and assist with discharge planning. Home with VN.
== END 2024-09-10 11:34 | disposition home health service (06) | DRG 177 ==
LOC: 3 WEST ACU 16:29
PROVIDERS: Registered Nurse; ADMITTING PHYSICIAN Hospitalist; EMERGENCY PHYSICIAN Student in an Organized Health Care Education/Training Program; FAMILY PHYSICIAN Emergency Medicine; OTHER PHYSICIAN Internal Medicine Critical Care Medicine
DX: J15.1 Pneumonia due to Pseudomonas (principal); J96.01 Acute respiratory failure with hypoxia; J44.0 Chronic obstructive pulmonary disease with (acute) lower respiratory infection; I50.22 Chronic systolic (congestive) heart failure; K55.9 Vascular disorder of intestine, unspecified; J98.11 Atelectasis; S22.089K Unspecified fracture of T11-T12 vertebra, subsequent encounter for fracture with nonunion; J44.1 Chronic obstructive pulmonary disease with (acute) exacerbation; A31.0 Pulmonary mycobacterial infection; Z79.83 Long term (current) use of bisphosphonates; Z79.01 Long term (current) use of anticoagulants; I11.0 Hypertensive heart disease with heart failure; I48.0 Paroxysmal atrial fibrillation; E78.00 Pure hypercholesterolemia, unspecified; E03.9 Hypothyroidism, unspecified; Z87.891 Personal history of nicotine dependence; I25.2 Old myocardial infarction; M85.80 Other specified disorders of bone density and structure, unspecified site; H54.7 Unspecified visual loss; I08.0 Rheumatic disorders of both mitral and aortic valves; I25.10 Atherosclerotic heart disease of native coronary artery without angina pectoris; J33.9 Nasal polyp, unspecified; J43.2 Centrilobular emphysema; K21.9 Gastro-esophageal reflux disease without esophagitis; Z80.3 Family history of malignant neoplasm of breast; Z82.49 Family history of ischemic heart disease and other diseases of the circulatory system; Z87.19 Personal history of other diseases of the digestive system; K57.90 Diverticulosis of intestine, part unspecified, without perforation or abscess without bleeding; Z95.5 Presence of coronary angioplasty implant and graft; I51.7 Cardiomegaly; X58.XXXA Exposure to other specified factors, initial encounter
CPT/HCPCS: 71046; 80048; 80053; 83735; 83880; 84484; 85014; 85018; 85025; 87015; 87070; 87077; 87102; 87116; 87186; 87205; 93005; 94640; 97116; 97162; 97166; 97530; 99285

== ENCOUNTER → 2024-09-13 15:58 | Outpatient (REF) | payer MEDICARE, SELFPAY | LOC: RAD 15:58 | PROVIDERS: ATTENDING PHYSICIAN Emergency Medicine | DX: R55 Syncope and collapse (principal); Z79.01 Long term (current) use of anticoagulants | CPT/HCPCS: 70450 ==

== ENCOUNTER 2024-09-18 12:20 | Observation (INO) | payer MEDICARE, SELFPAY ==
[2024-09-18] VITALS (11 sets, daily range): BP systolic 92–119; BP diastolic 47–81; PULSE 76–93; BMI 20.3; BMI 19.4
--- NOTE | 2024-09-18 10:02 | ED.GENMED ---
History of Present Illness
<Hayde Kaba MD, Resident - Last Filed: 09/18/24 13:43>
General
Chief Complaint: Fainting/Passed Out
Source: patient and ambulance crew
Exam Limitations: none
Time Seen by Provider: 09/18/24 09:58
Nursing documentation reviewed up to this point in time: agreed with
History of Present Illness
History of Present Illness:
84yo F with PMH afib, CAD, COPD, recent hospitalization with pneumonia still on levofloxacin who presented from home to ED after passing out. Per EMS, patient was sitting at rest with visiting nurse and she passed out. The fall was witnessed, no
head impact, no postictal state. She lives alone and this is the 2nd time this has happened in past week. When EMS arrived systolic BP originally in 90s, with improvement after IV fluid bolus. At time of evaluation in ED, patient now awake alert
oriented x3 and able to provide history. Her only complaint is feeling tired and cold. She says that prior to passing out, she had no presyncopal symptoms.
Past History
<Hayde Kaba MD, Resident - Last Filed: 09/18/24 13:43>
Past History
ED Past Medical History: Arrthythmia (permanent afib), CAD, CHF, COPD, GERD, HTN, Hypercholesterolemia, Renal failure, Valvular disease (aortic stenosis), Hypothyroidism, Other (Nasal polyps, sinusitis, ischemic colitis, DVT) and Other (Chronic
bronchitis, ex-smoker, stress incontinence, arthritis, impaired vision, depression, deviated septum, fluid retention, history of neuropathy)
ED Past Surgical History: Cardiac (stent) and Other (deviated septum 2006)
Patient has exhibited threatening behavior?: No
Social History
Tobacco: Former smoker
Alcohol: None
Drug: None
Personal:
Living: alone
Employment: Retired
Review of Systems
<Hayde Kaba MD, Resident - Last Filed: 09/18/24 13:43>
Review of Systems
Allergies reviewed?: Yes
Constitutional: Reports fatigue and chills; Denies fever
EENT: Reports no symptoms
Respiratory: Reports no symptoms; Denies cough, hemoptysis or trouble breathing
Cardiac: Reports syncope (see HPI); Denies chest pain, diaphoresis or palpitations
ABD/GI: Reports constipated; Denies abdominal pain, nausea, vomiting, diarrhea, bloody stools, black stools or anorexia
: Denies dysuria or difficulty voiding
Musculoskeletal: Reports no symptoms
Skin: Reports no symptoms
Neurological: Reports no symptoms
Endocrine: Reports no symptoms
Hematologic/Lymphatic: Reports no symptoms
Psychiatric: Reports no symptoms
Phy Exam
<Hayde Kaba MD, Resident - Last Filed: 09/18/24 13:43>
General Physical Exam
General Presentation: well appearing and no apparent distress
General age: appears stated age
General Skin: warm and dry
General Habitus: elderly
General Mental: alert
General Hydration: appears well hydrated
Cardiovascular Exam
Cardiovascular Exam: no edema and irregularly irregular
Pulmonary Exam
Pulmonary Exam: no respiratory distress and no cough
Oxygen Status: room air
Gastrointestinal Exam
Gastrointestinal Exam: non tender, soft and non distended
Neurological Exam
Neurological Exam: alert, oriented x3 and speech normal
Psychiatric Exam
Psychiatric Exam: normal mood/affect
Course
<Hayde Kaba MD, Resident - Last Filed: 09/18/24 13:43>
Orders/Labs/Results
Orders:
Orders
09/18/24 09:54
Electrocardiogram (*1) Urgent
Reason for Study: Syncope
EKG- Treatment ONCE
09/18/24 10:11
Complete Blood Count/With Diff Urgent
Comprehensive Metabolic Panel Urgent
09/18/24 10:53
Potassium Chloride 10% Elixir [KCl Elixir] 40 meq PO NOW STA
09/18/24 11:21
CARDIOLOGY CONSULT Routine
Consulting Provider: Donaldo Funes
Was physician already notified: Yes
09/18/24 11:56
Admit/Transfer Patient As Directed
Co-Sign Provider:
Level of Care: Observation services
Assign to:: Telemetry
Physician / Group: Dr Parada
Diagnosis: Syncope
Reason for Telemetry: Syncope
Date to Stop Telemetry: 09/20/24
Time to Stop Telemetry: 11:00
PRN Pain Medication Management As Directed
May give lesser potent ordered pain med per pt: Yes
preference::
Protocol:: Medication orders for pain may be administered in a
manner that supports deferring to patient preference
when the pt is:
- Requesting an ordered lesser potent pain medication.
Least to most potent pain medications are defined
as: acetaminophen < NSAID < tramadol < opioids
(morphine, oxycodone, hydromorphone).
- Requesting a lesser dose of the same medication IF
ORDERED.
- Requesting a less intrusive route of administration
if both routes are prescribed by the provider (PO <
IV).
09/18/24 12:00
Code Status As Directed
Resuscitation Status: Full Code
09/18/24 12:01
Orthostatic Vital Signs As Directed
Orthostatic VS Frequency: BID
09/18/24 12:02
CARDIOLOGY CONSULT Routine
Consulting Provider: Donaldo Funes
Was physician already notified: Yes
Reason for consult: recurrent syncope
09/18/24 12:12
Pulse Ox/Assess for Home O2 [RESP] Routine
Oxygen to keep O2 Saturation at least ___ %: 92
Ot Eval And Treat Routine
Pt Eval And Treat Routine
Activity Level: Out of Bed-Early Mobility
09/20/24 11:00
DC Protocol for Telemetry ONCE
Abnormal Lab Results
09/18/24
10:11
RBC 3.69 L 10^6/uL
(4.20-5.40)
Hgb 11.9 L g/dL
(12.0-16.0)
MCV 101.6 H fL
(81.0-99.0)
MCH 32.2 H pg
(27.0-31.0)
MCHC 31.7 L g/dL
(33.0-37.0)
Abs Immat Gran (auto) 0.1 H 10^3/uL
(0-0.05)
Absolute Neuts (auto) 7.3 H 10^3/uL
(1.4-6.5)
Absolute Lymphs (auto) 0.9 L 10^3/uL
(1.2-3.4)
Absolute Monos (auto) 0.9 H 10^3/uL
(0.1-0.6)
Immature Gran % 0.9 H %
(0-0.5)
Neutrophils % 79.3 H %
(42.2-75.2)
Lymphocytes % 10.2 L %
(20.5-51.1)
Monocytes % 9.4 H %
(1.7-9.3)
Sodium 133 L mmol/L
(135-145)
Potassium 3.2 L mmol/L
(3.5-5.1)
BUN 37 H mg/dl
(7-17)
Creatinine 1.2 H mg/dL
(0.6-1.0)
Calcium 8.1 L mg/dl
(8.4-10.2)
Total Protein 5.7 L g/dl
(6.3-8.2)
Albumin 3.1 L g/dl
(3.5-5.0)
09/18/24 10:11
09/18/24 10:11
Vital Signs
Initial and Last Documented VS:
Initial Vital Signs
BP
107/81
09/18/24 09:53
Last Documented Vital Signs
Temp Pulse Resp BP Pulse Ox
97.3 F 67 20 101/62 95
09/18/24 10:07 09/18/24 13:30 09/18/24 13:30 09/18/24 13:00 09/18/24 13:30
<Zechariah Farley, DO - Last Filed: 09/18/24 10:42>
Orders/Labs/Results
Orders:
Orders
09/18/24 09:54
Electrocardiogram (*1) Urgent
Reason for Study: Syncope
EKG- Treatment ONCE
09/18/24 10:11
Complete Blood Count/With Diff Urgent
Comprehensive Metabolic Panel Urgent
09/18/24 10:53
Potassium Chloride 10% Elixir [KCl Elixir] 40 meq PO NOW STA
09/18/24 11:21
CARDIOLOGY CONSULT Routine
Consulting Provider: Donaldo Funes
Was physician already notified: Yes
09/18/24 11:56
Admit/Transfer Patient As Directed
Co-Sign Provider:
Level of Care: Observation services
Assign to:: Telemetry
Physician / Group: Dr Parada
Diagnosis: Syncope
Reason for Telemetry: Syncope
Date to Stop Telemetry: 09/20/24
Time to Stop Telemetry: 11:00
PRN Pain Medication Management As Directed
May give lesser potent ordered pain med per pt: Yes
preference::
Protocol:: Medication orders for pain may be administered in a
manner that supports deferring to patient preference
when the pt is:
- Requesting an ordered lesser potent pain medication.
Least to most potent pain medications are defined
as: acetaminophen < NSAID < tramadol < opioids
(morphine, oxycodone, hydromorphone).
- Requesting a lesser dose of the same medication IF
ORDERED.
- Requesting a less intrusive route of administration
if both routes are prescribed by the provider (PO <
IV).
09/18/24 12:00
Code Status As Directed
Resuscitation Status: Full Code
09/18/24 12:01
Orthostatic Vital Signs As Directed
Orthostatic VS Frequency: BID
09/18/24 12:02
CARDIOLOGY CONSULT Routine
Consulting Provider: Donaldo Funes
Was physician already notified: Yes
Reason for consult: recurrent syncope
09/18/24 12:12
Pulse Ox/Assess for Home O2 [RESP] Routine
Oxygen to keep O2 Saturation at least ___ %: 92
Ot Eval And Treat Routine
Pt Eval And Treat Routine
Activity Level: Out of Bed-Early Mobility
09/20/24 11:00
DC Protocol for Telemetry ONCE
Abnormal Lab Results
09/18/24
10:11
RBC 3.69 L 10^6/uL
(4.20-5.40)
Hgb 11.9 L g/dL
(12.0-16.0)
MCV 101.6 H fL
(81.0-99.0)
MCH 32.2 H pg
(27.0-31.0)
MCHC 31.7 L g/dL
(33.0-37.0)
Abs Immat Gran (auto) 0.1 H 10^3/uL
(0-0.05)
Absolute Neuts (auto) 7.3 H 10^3/uL
(1.4-6.5)
Absolute Lymphs (auto) 0.9 L 10^3/uL
(1.2-3.4)
Absolute Monos (auto) 0.9 H 10^3/uL
(0.1-0.6)
Immature Gran % 0.9 H %
(0-0.5)
Neutrophils % 79.3 H %
(42.2-75.2)
Lymphocytes % 10.2 L %
(20.5-51.1)
Monocytes % 9.4 H %
(1.7-9.3)
Sodium 133 L mmol/L
(135-145)
Potassium 3.2 L mmol/L
(3.5-5.1)
BUN 37 H mg/dl
(7-17)
Creatinine 1.2 H mg/dL
(0.6-1.0)
Calcium 8.1 L mg/dl
(8.4-10.2)
Total Protein 5.7 L g/dl
(6.3-8.2)
Albumin 3.1 L g/dl
(3.5-5.0)
09/18/24 10:11
09/18/24 10:11
Vital Signs
Initial and Last Documented VS:
Initial Vital Signs
BP
107/81
09/18/24 09:53
Last Documented Vital Signs
Temp Pulse Resp BP Pulse Ox
97.3 F 67 20 101/62 95
09/18/24 10:07 09/18/24 13:30 09/18/24 13:30 09/18/24 13:00 09/18/24 13:30
<Hayde Kaba MD, Resident - Last Filed: 09/18/24 13:43>
MDM/Problems Addressed
Differential Diagnosis Includes:
Syncope, cardiac arrhythmia, deconditioning, failure to thrive
MDM/Problems Addressed:
84yo F with PMH afib, CAD, COPD, recent hospitalization with pneumonia still on levofloxacin who presented from home to ED after passing out.
Unclear etiology of syncopal episode-- concerning for cardiac arrhythmia etiology given syncope at rest.
Will need cardiac evaluation, likely holter monitor. However not safe for discharge home with outpatient evaluation given patient lives alone without constant assistance/supervision if needed.
Keep on security monitor here, will discuss admission with hospitalist and consult front desk specialist.
<Hayde Kaba MD, Resident - Last Filed: 09/18/24 13:43>
*Critical Care Note
Total Time (30-74mins, 75-104mins- exclusive of procedures): Not Applicable
<Hayde Kaba MD, Resident - Last Filed: 09/18/24 13:43>
Update Note
Update Note:
Hypokalemia-- will give PO KCl 40meq.
ED Attending Note
<Hayde Kaba MD, Resident - Last Filed: 09/18/24 13:43>
-
Portions of this chart may have been created with voice recognition software.� Occasional wrong word or��sound alike� substitutions may have occurred due to the inherent limitations of voice recognition software.
<Zechariah Farley, DO - Last Filed: 09/18/24 10:42>
ED Attending Note
Patient seen and examined by attending physician: Yes
I performed a history and physical exam of patient and discussed management with resident, I reviewed resident's note and agree with documented findings and plan of care.: Yes
ED Attending Note:
I have seen and evaluated the patient with a [id number] encounter. I have spoken to the resident and involved in the medical history, the physical exam, medical decision making.
Evaluation and management service: agree unless noted differently below.
Results interpretation: agree unless noted differently below.
Focused HPI: 84-year-old female presenting with syncopal event. Visiting nurse noted that she passed out while sitting down. Patient does live alone and acknowledges that she has passed out at rest multiple times. Patient currently complaining of
feeling cold weak
Physical exam: Sitting in bed comfortably. Frail. Irregular rhythm
Medical Decision Making: Patient has chronic A-fib. Given syncope at rest, will admit for telemetry monitoring to look for arrhythmias or pauses
Discharge Plan
Departure
Patient Disposition: Admit
Date of Disposition: 09/18/24
Time of Disposition: 11:44
Presentation/result/management discussed w/ accepting MD/DO: Hospitalist
Discharge Problem:
Syncope
Interventions
Interventions:
*General Assessment Last Done: 09/18/24 09:54
*Neglect/Abuse Screening Last Done: 09/18/24 09:54
*ED COVID-19 Vaccine History Last Done: 09/18/24 10:00
ED- Cardiac Assessment Last Done: 09/18/24 10:03
ED- Neurological Assessment Last Done: 09/18/24 10:03
[2024-09-18 10:22] LABS: Glucose - Point of Care 95 mg/dl (70-99)
[2024-09-18 10:33] LABS: % Basophils 0.1 % (0-2); % Eosinophils 0.1 % (0-6); % Immature Granulocytes 0.9 % (0-0.5); % Lymphocytes 10.2 % (20.5-51.1); % Monocytes 9.4 % (1.7-9.3); % Neutrophils 79.3 % (42.2-75.2); Absolute Immature Granulocytes 0.1 10^3/uL (0-0.05); Absolute Lymphocytes 0.9 10^3/uL (1.2-3.4); Absolute Monocytes 0.9 10^3/uL (0.1-0.6); Absolute Neutrophils 7.3 10^3/uL (1.4-6.5); Hematocrit 37.5 % (37.0-47.0); Hemoglobin 11.9 g/dL (12.0-16.0); Mean Corp Hgb Conc. 31.7 g/dL (33.0-37.0); Mean Corpuscular Hgb 32.2 pg (27.0-31.0); Mean Corpuscular Volume 101.6 fL (81.0-99.0); Mean Platelet Volume 10.3 fL (7.4-10.4); Nucleated Red Blood Cells % 0 %; Platelet Count 155 10^3/uL (130-400); Red Blood Cell Count 3.69 10^6/uL (4.20-5.40); Red Cell Dist. Width 13.2 % (11.5-14.5); White Blood Cell Count 9.2 10^3/uL (4.8-10.8)
[2024-09-18 10:46] LABS: ALT (SGPT) 13 U/L (0-35); AST (SGOT) 18 U/L (14-36); Albumin 3.1 g/dl (3.5-5.0); Alkaline Phosphatase 56 U/L (38-126); Blood Urea Nitrogen 37 mg/dl (7-17); Calcium 8.1 mg/dl (8.4-10.2); Carbon Dioxide 24 mmol/L (22-30); Chloride 102 mmol/L (98-107); Estimated Creatinine Clearance 33 ml/min; Glucose 84 mg/dl (70-99); Potassium 3.2 mmol/L (3.5-5.1); Sodium 133 mmol/L (135-145); Total Bilirubin 0.4 mg/dl (0.2-1.3); Total Protein 5.7 g/dl (6.3-8.2); eGFR 44.91
[2024-09-18] MEDS: KCL ELIXIR 40 MEQ PO (11:24)
--- NOTE | 2024-09-18 12:02 | HPS.HSE ---
Family Physician
-
Family Physician: Diana Bone MD
Chief Complaint
-
syncope
History of Present Illness
Patient 83 years old female with history of COPD, chronic systolic CHF, chronic LBBB, valvular heart disease, CAD, recent Pseudomonas pneumonia and COPD exacerbation for which she had a hospitalization, came into the hospital with recurrent syncope.
Patient states that she recovered quite well from her recent hospitalization. Patient had a syncope event last Wednesday and she had another episode today while she was sitting down at the table and she had no premonitory symptoms and passed out.
She does not recall any chest pain, shortness of breath, palpitations, diaphoresis, warmth, prior to this event. She also denies any tonic-clonic activity, tongue biting, bowel or bladder incontinence. Denies any fevers or chills. This event
lasted about 10 to 15 minutes. She regained more consciousness while she was in the ambulance. By the time of my evaluation she is back to her baseline. There was some transient readings of low blood pressure and low oxygenation but both back up
to normal. She was referred to hospitalist service for further evaluation.
Medical History
Past Medical History
Past Medical History: Reports Other
Additional Past Medical History:
Chronic HFrEF
Paroxysmal Atrial Fibrillation
Essential Hypertension
Hyperlipidemia
COPD
Hypothyroidism
Past Surgical History: Reports None
Social History
Tobacco: Former Smoker
Alcohol: None
Drug: None
Family History
Family History: Not pertinent
Allergies / Home Medications
Allergies reflects when Allergies were last updated in [employer].
Home Medications with original date entered in [employer]
Allergy/Medication List:
Allergies
Allergy/AdvReac Type Severity Reaction Status Date / Time
No Known Allergies Allergy Verified 09/18/24 09:54
Home Medications
alendronate 70 mg tablet 70 mg PO SA osteoporosis 05/31/21
acetaminophen 650 mg tablet,extended release 1,300 mg PO BID Pain 07/13/24
atorvastatin 40 mg tablet 40 mg PO DAILY High cholesterol 07/13/24
cholecalciferol (vitamin D3) 50 mcg (2,000 unit) tablet 50 mcg PO DAILY Supplement 07/13/24
losartan 50 mg tablet 50 mg PO HS Blood Pressure 07/13/24
albuterol sulfate 90 mcg/actuation aerosol inhaler 2 inh inhalation R QIDPRN PRN sob 09/04/24
carvedilol 3.125 mg tablet 3.125 mg PO BID Blood Pressure 09/04/24
furosemide 40 mg tablet 20 mg PO QPM Fluid Retention/Swelling 09/04/24
furosemide 40 mg tablet (Lasix) 40 mg PO DAILY Fluid Retention/Swelling 09/04/24
spironolactone 25 mg tablet 12.5 mg PO DAILY Blood Pressure 09/04/24
umeclidinium 62.5 mcg-vilanterol 25 mcg/actuation powdr for inhalation (Anoro Ellipta) 1 inh inhalation R DAILY@1300 Lung/Breathing Issues 09/04/24
apixaban 2.5 mg tablet (Eliquis) 2.5 mg PO BID Blood Clot Prevention/Tx 09/18/24
levofloxacin 750 mg tablet 750 mg PO DAILY Infection 09/18/24
prednisone 10 mg tablet See Rx Instructions .Route .COMPLEX Anti-Inflammatory 09/18/24
Review of Systems
-
A 12 point ROS was completed and negative except as noted: Yes
Physical Exam
Vital Signs
Vital Signs
Temp Pulse Resp BP Pulse Ox
97.3 F 73 17 107/81 93
09/18/24 10:07 09/18/24 10:00 09/18/24 10:00 09/18/24 09:54 09/18/24 10:03
Physical exam:
General: Well Developed, Well Nourished and No Apparent Distress
HEENT: Normocephalic, Atraumatic and Moist Mucous Membranes
Respiratory: Decreased breath sounds bilateral. Clear to Auscultation; Negative Wheezes, Rales or Rhonchi
Cardiac: Regular Rhythm and S1/S2
GI: Soft, Nontender and Nondistended
Musculoskeletal: No Clubbing, No Cyanosis and No Edema
Neuro: Awake, Alert and Oriented, no neurological deficits appreciated
Psych: Calm
Physical Exam
General: Other
Laboratory Results
-
09/18/24 10:11
09/18/24 10:11
Laboratory Results
Total Bilirubin 0.4 mg/dl (0.2-1.3) 09/18/24 10:11
AST 18 U/L (14-36) 09/18/24 10:11
ALT 13 U/L (0-35) 09/18/24 10:11
Alkaline Phosphatase 56 U/L (38-126) 09/18/24 10:11
Data Reviewed
-
Lab Data: Labs Reviewed by me
Impression/Plan
-
IMPRESSION:
Patient 84 years old female with multiple comorbidities presented to the hospital with syncope. Patient at risk of increased morbidity and mortality due to comorbidities and acute presentation therefore she will need to be monitored in the hospital.
PLAN:
Syncope:
Suspicion for volume depletion or orthostatic but cannot rule out cardiac arrhythmia or other etiology
Workup in progress
Cardiac monitoring
Check orthostatic
PT OT eval
Cardiology consult
COPD and recent Pseudomonas pneumonia:
No signs of exacerbation
Continue outpatient treatment
Check for home oxygen needs
Hyponatremia:
Mild
No need for further workup for now
Monitor trend
Hypokalemia:
Due to diuretics
Replete and trend
CKD:
Mild worsening from baseline
Will decide if continue with current diuretic or hold diuretics and whether to give gentle hydration. Likely will hold diuretics.
Paroxysmal Atrial Fibrillation
-Continue Eliquis for anticoagulation
-Continue Coreg for rate control
Chronic HFrEF
-Continue Lasix and Spironolactone but likely will need to hold so we will reevaluate later today.
-Monitor Is&Os and Daily Weights
Essential Hypertension
-Continue Coreg and Losartan with holding parameters
Hyperlipidemia
-Continue atorvastatin
DVT proph: Eliquis
Code Status: Full Code
Time spent 75 minutes.
--- NOTE | 2024-09-18 15:03 | CON.CAR ---
Addendum entered and electronically signed by Donaldo Funes DO 09/18/24 17:27:
I saw and examined the patient.
The Corporate Compliance Officer's note was reviewed and I agree with the note.
Comment:
Plan:
Patient with recurrent syncope hypotension. First episode of syncope was September 11 and she saw PCP and had negative head CT. Intermittent lightheadedness and this a.m. had another episode of syncope while sitting at the kitchen table. Blood
pressure 90 mmHg systolic when EMS arrived. Some noted blood pressures as low as 74 mmHg systolic.
Check orthostatic vitals.
Syncope may be related to vasovagal syncope from orthostasis. Stop Aldactone. Reduce losartan in half to 25 mg daily. She has had approximately 10 pound weight loss since her prior baseline. Would hold Lasix as well for now and likely resume at
a lower dose.
She has a history of permanent atrial fibrillation with adequate rate control. Continue Coreg. Continue anticoagulation with Eliquis.
Continue telemetry to evaluate for heart block.
She may require outpatient heart monitoring.
Discussed with son at bedside.
Original Note:
Consultation
Consultation Request
Date/Time Consultation Requested: 09/18/2024
Date/Time Consultation Performed: 09/18/2024
Requesting Provider: Dr. Parada
Performing Provider: Maggie Briceno PA-C for Dr. Funes
Reason for Consultation: Syncope
Medical History
-
History of Present Illness:
HPI: Earnestine is an 83 year old female with PMH chronic HFrEF, CAD status post LAD PCI 06/04/2021 with residual total occlusion of the RCA, , ischemic cardiomyopathy, hypertension, hyperlipidemia, permanent atrial fibrillation, LBBB, COPD, prior DVT,
Graves' disease, and neuropathy. She presented to ER for evaluation after syncopal episode at home. She reports she was sitting at her kitchen table with the visiting nurse when she suddenly had syncopal episode. Episode was witnessed by
nurse. Son reports she was out of it for a few minutes. Patient does not remember passing out, but just remembers waking up in the ambulance. She and son note blood pressures have been on the low side at home over the past few weeks, at times as
low as 74/42. She was most recently seen in the cardiology office 08/14/2024. She was started on spironolactone at this visit. She then had hospital stay at 09/04/2024 to 09/10/2024 with pneumonia. Hypotension and lightheadedness was first
noted following most recent hospitalization. About 1 week ago she notes she felt lightheaded at the kitchen table and had syncopal episode which was unwitnessed. She was seen by her PCP a few days later and refused ER evaluation. She was arranged
for head CT which showed no evidence of intracranial abnormality. She reports between episode of syncope 1 week ago and episode earlier today, she had another episode of near syncope and lightheadedness. Otherwise, she reports no chest pain,
shortness of breath, palpitations, or lower extremity edema. Her weight has been downtrending and weight this morning at home was down to 118 pounds. Given recurrent syncope she has been admitted and cardiology consulted for evaluation. She
reports no dizziness/lightheadedness while resting on stretcher.
PMH:
Chronic HFrEF
CAD
NSTEMI s/p urgent IABP and prox LAD PCI 06/04/21
residual total occlusion of the right coronary artery with complex tortuous disease in the distal circumflex
Moderate to severe aortic stenosis
Ischemic CM
Hypertension
Dyslipidemia
Permanent atrial fibrillation, diagnosed 03/2020
Eliquis anticoagulation [DVT and A. fib]
Chronic LBBB
COPD
History of DVT
History of Graves' disease
Neuropathy
History of mechanical fall with L1 compression fracture 10/2020
Past Medical History
Past Medical History: Other (In HPI)
Past Surgical History: Cardiac (LAD PCI 06/04/2021) and Other (Cataract surgery bilaterally)
Social History
Tobacco: Former Smoker
Alcohol: Occasional
Drug: None
Family History
Family History: Reviewed & Not Pertinent
Allergies / Home Medications
Allergy/AdvReac Type Severity Reaction Status Date / Time
No Known Allergies Allergy Verified 09/18/24 09:54
�Medication �Instructions �Recorded �Confirmed �Type
alendronate 70 mg tablet 70 mg PO SA osteoporosis 05/31/21 09/18/24 History
acetaminophen 650 mg 1,300 mg PO BID Pain 07/13/24 09/18/24 History
tablet,extended release
atorvastatin 40 mg tablet 40 mg PO DAILY High cholesterol 07/13/24 09/18/24 History
cholecalciferol (vitamin D3) 50 50 mcg PO DAILY Supplement 07/13/24 09/18/24 History
mcg (2,000 unit) tablet
losartan 50 mg tablet 50 mg PO HS Blood Pressure 07/13/24 09/18/24 History
albuterol sulfate 90 mcg/actuation 2 inh inhalation R QIDPRN PRN sob 09/04/24 09/18/24 History
aerosol inhaler
carvedilol 3.125 mg tablet 3.125 mg PO BID Blood Pressure 09/04/24 09/18/24 History
furosemide 40 mg tablet 20 mg PO QPM Fluid 09/04/24 09/18/24 History
Retention/Swelling
furosemide 40 mg tablet (Lasix) 40 mg PO DAILY Fluid 09/04/24 09/18/24 History
Retention/Swelling
spironolactone 25 mg tablet 12.5 mg PO DAILY Blood Pressure 09/04/24 09/18/24 History
umeclidinium 62.5 mcg-vilanterol 1 inh inhalation R DAILY@1300 09/04/24 09/18/24 History
25 mcg/actuation powdr for Lung/Breathing Issues
inhalation (Anoro Ellipta)
apixaban 2.5 mg tablet (Eliquis) 2.5 mg PO BID Blood Clot 09/18/24 09/18/24 History
Prevention/Tx
levofloxacin 750 mg tablet 750 mg PO DAILY Infection 09/18/24 09/18/24 History
prednisone 10 mg tablet See Rx Instructions .Route 09/18/24 09/18/24 History
.COMPLEX Anti-Inflammatory
Review of Systems
-
History Source: Patient
All other systems: Negative unless noted
Physical Exam
Vital Signs
Temp Pulse Resp BP Pulse Ox
97.3 F 67 20 101/62 95
09/18/24 10:07 09/18/24 13:30 09/18/24 13:30 09/18/24 13:00 09/18/24 13:30
Lab Results
09/18/24 10:11
09/18/24 10:11
Physical Exam
General: Well Developed, Well Nourished and No Apparent Distress
HEENT: Normocephalic, Anicteric and Moist Mucous Membranes
Respiratory: Clear and Non Labored Respirations
Cardiac: S1/S2 and Irregular Rhythm
Musculoskeletal: No Clubbing, No Cyanosis and No Edema
Skin: Warm and Dry
Neuro: AO x 3 and Nonfocal/Grossly Intact
Psych: Calm
Impression / Plan
-
PCP: Dr. Bone
Broadcast Traffic Coordinator: Dr. JERED Mccord
Impression:
Presented after syncopal episode
Hypotension
Hypokalemia
Hyponatremia
Recent admission at 09/04/2024 to 09/10/2024 w/ PNA
Chronic HFrEF
CAD
NSTEMI s/p urgent IABP and prox LAD PCI 06/04/21
residual total occlusion of the right coronary artery with complex tortuous disease in the distal circumflex
Moderate to severe aortic stenosis
Ischemic CM
Hypertension
Dyslipidemia
Permanent atrial fibrillation, diagnosed 03/2020
Eliquis anticoagulation [DVT and A. fib]
Chronic LBBB
COPD
History of DVT
History of Graves' disease
Neuropathy
History of mechanical fall with L1 compression fracture 10/2020
ECHO 06/02/21: EF 35-40%, septal, mid to distal anterior and apical hypokinesis, asymmetric septal hypertrophy, stage II diastolic dysfunction, mitral annular calcification, moderate MR, thickened aortic valve with peak/mean gradients 25/11 mmHg,
NATALIA 1.1 cm�, moderate to severe , mild TR, PAP 35 mmHg
Echo 07/25/2021: EF 35%, moderate aortic stenosis with mean pressure gradient of 11 mmHg and aortic valve area 1.0 cm, moderate MR
Echo 07/14/2024: EF 35 to 40%, moderate MR, moderate with peak/mean gradient 9/13 mmHg, NATALIA 0.9 cm�, mild to moderate TR, estimated PAP 25 to 30 mmHg
Plan:
-Presented with recurrent syncope. First episode of syncope on 09/11/2024 with associated lightheadedness prior. Denied ER evaluation at the time, but seen by PCP and head CT negative for intracranial abnormality.
-Has had intermittent lightheadedness and this a.m. had another episode of syncope, but this was without prodrome while sitting at kitchen table.
-BP reportedly in the 90s systolic when EMS arrived. Son notes blood pressures have been as low as 74/42 at home, and are commonly less than 90 systolic.
-Suspect syncope related to hypotension. Would stop spironolactone. This was recently started 07/2024.
-Reduce losartan to 25 mg daily.
-She has been losing weight recently. Weight down to 118 pounds at home, approximately 10 pound weight loss from prior baseline. Will hold Lasix for now and will likely resume at lower dose.
-ECG reviewed. A-fib with heart rate 77 bpm. Permanent A-fib noted. Heart rate stable on review of telemetry. No significant pauses noted. Would continue to follow while admitted
-Continue Coreg 3.125 mg twice daily.
-Continue Eliquis 2.5 mg twice daily for anticoagulation. Hopefully with improvement in blood pressures, fall risk will improve.
-Recent echo 06/2024 with EF stable at 35 to 40%. Moderate valvular disease noted, this is also stable compared to prior in 2020. No need to repeat at this time.
-Hypotension noted in ER. Check orthostatic vital signs. Suspect blood pressure dropping even further with position change
-K 3.2. Agree with repletion.
HPI: Earnestine is an 83 year old female with PMH chronic HFrEF, CAD status post LAD PCI 06/04/2021 with residual total occlusion of the RCA, , ischemic cardiomyopathy, hypertension, hyperlipidemia, permanent atrial fibrillation, LBBB, COPD, prior DVT,
Graves' disease, and neuropathy. She presented to ER for evaluation after syncopal episode at home. She reports she was sitting at her kitchen table with the visiting nurse when she suddenly had syncopal episode. Episode was witnessed by
nurse. Son reports she was out of it for a few minutes. Patient does not remember passing out, but just remembers waking up in the ambulance. She and son note blood pressures have been on the low side at home over the past few weeks, at times as
low as 74/42. She was most recently seen in the cardiology office 08/14/2024. She was started on spironolactone at this visit. She then had hospital stay at 09/04/2024 to 09/10/2024 with pneumonia. Hypotension and lightheadedness was first
noted following most recent hospitalization. About 1 week ago she notes she felt lightheaded at the kitchen table and had syncopal episode which was unwitnessed. She was seen by her PCP a few days later and refused ER evaluation. She was arranged
for head CT which showed no evidence of intracranial abnormality. She reports between episode of syncope 1 week ago and episode earlier today, she had another episode of near syncope and lightheadedness. Otherwise, she reports no chest pain,
shortness of breath, palpitations, or lower extremity edema. Her weight has been downtrending and weight this morning at home was down to 118 pounds. Given recurrent syncope she has been admitted and cardiology consulted for evaluation. She
reports no dizziness/lightheadedness while resting on stretcher.
Data Reviewed
-
EKG: Tracing Personally Visualized and interpreted
Labs: Labs Reviewed by me
Old Records: Reviewed
--- NOTE | 2024-09-18 16:49 | PTCARENOTE ---
Patient admitted to room 405-02 from ER. Patient oriented to room and use of call martinez and use of bed and TV controls. Patient verbalizes understanding of teaching. Tele placed on patient. Vital signs stable. Explained plan of care to patient and
son. Both verbalize understanding of teaching and deny questions at this time.
[2024-09-18] MEDS: STRIVERDI RESPIMAT 2 PUFF INH (19:28)
[2024-09-18] MEDS: COREG PO (20:15)
[2024-09-18] MEDS: ELIQUIS 2.5 MG PO (20:16)
[2024-09-18] MEDS: COZAAR 25 MG PO (23:41)
[2024-09-19] VITALS (9 sets, daily range): BP systolic 77–125; BP diastolic 46–75; PULSE 84–99; O2SAT 96; BMI 19.1
[2024-09-19 07:01] LABS: Hematocrit 33.4 % (37.0-47.0); Mean Corp Hgb Conc. 32.9 g/dL (33.0-37.0); Mean Corpuscular Hgb 32.4 pg (27.0-31.0); Mean Corpuscular Volume 98.5 fL (81.0-99.0); Mean Platelet Volume 10.3 fL (7.4-10.4); Platelet Count 141 10^3/uL (130-400); Red Blood Cell Count 3.39 10^6/uL (4.20-5.40); Red Cell Dist. Width 13.3 % (11.5-14.5); White Blood Cell Count 9.5 10^3/uL (4.8-10.8)
[2024-09-19 07:06] LABS: Blood Urea Nitrogen 32 mg/dl (7-17); Calcium 8.4 mg/dl (8.4-10.2); Carbon Dioxide 26 mmol/L (22-30); Chloride 102 mmol/L (98-107); Estimated Creatinine Clearance 33 ml/min; Glucose 71 mg/dl (70-99); Magnesium 2.2 mg/dl (1.6-2.3); Sodium 135 mmol/L (135-145); eGFR 49.86
--- NOTE | 2024-09-19 08:17 | VNURNOTE ---
Chart reviewed. Patient is current with [facility] nursing, PT. Will continue to follow hospital course and DC plans.
[2024-09-19] MEDS: LEVAQUIN 750 MG PO (08:46)
[2024-09-19] MEDS: ELIQUIS 2.5 MG PO ×2 (08:46→20:13)
[2024-09-19] MEDS: LIPITOR 40 MG PO (08:46)
[2024-09-19] MEDS: COREG 3.125 MG PO (08:46)
[2024-09-19] MEDS: VITAMIN D3 (cholecalciferol) 50 MCG PO (08:46)
[2024-09-19] MEDS: FLUSH (NSS) 1 FLUSH IV (08:56)
--- NOTE | 2024-09-19 09:54 | W.PN.HOSP.TC ---
Today's Communication/Plan
-
Holding cardiac medications and monitor blood pressure.
Assessment / Plan
Assessment / Plan
Physical exam:
General: Well Developed, Well Nourished and No Apparent Distress
HEENT: Normocephalic, Atraumatic and Moist Mucous Membranes
Respiratory: Decreased breath sounds bilateral. Clear to Auscultation; Negative Wheezes, Rales or Rhonchi
Cardiac: Regular Rhythm and S1/S2
GI: Soft, Nontender and Nondistended
Musculoskeletal: No Clubbing, No Cyanosis and No Edema
Neuro: Awake, Alert and Oriented, no neurological deficits appreciated
Psych: Calm
A/P:
Syncope:
Hypotension related and orthostatic
Holding diuretics
Discontinued Aldactone
Holding losartan
Only on beta-blockers at this point
Cardiology consult and follow-up appreciated
PT OT eval
Discussed with son over the phone today on 09/19
COPD and recent Pseudomonas pneumonia:
No signs of exacerbation
Continue outpatient treatment
Check for home oxygen needs
Hyponatremia:
Mild and improving
No need for further workup for now
Monitor trend
Hypokalemia:
Due to diuretics
Replete and trend
CKD:
Mild worsening from baseline
Holding diuretic
Paroxysmal Atrial Fibrillation
-Continue Eliquis for anticoagulation
-Continue Coreg for rate control
Chronic HFrEF
-Holding Lasix and Spironolactone
-Monitor Is&Os and Daily Weights
Essential Hypertension
-Continue Coreg with holding parameters
-Holding losartan
Hyperlipidemia
-Continue atorvastatin
DVT proph: Eliquis
Code Status: Full Code
Anticipated Discharge: 24 - 48 hours
Subjective/Interval History
-
Date of Service: September 19, 2024
Patient feels a bit better but still having symptomatic hypotension and orthostatic. Afebrile
Objective Data
-
Labs:
Laboratory Results
09/19/24
06:23
WBC 9.5
Hgb 11.0 L
Hct 33.4 L
Plt Count 141
Sodium 135
Potassium 4.0
Chloride 102
Carbon Dioxide 26
BUN 32 H
Creatinine 1.1 H
Glucose 71
Calcium 8.4
Vital Signs:
Vital Signs
Temp Pulse Resp BP Pulse Ox
97.5 F 90 20 125/75 95
09/19/24 07:44 09/19/24 08:46 09/19/24 07:44 09/19/24 08:46 09/19/24 07:44
I&O
09/18/24 09/19/24 09/20/24
06:59 06:59 06:59
Intake Total 0 / 0
Balance 0 / 0
[2024-09-19] MEDS: STRIVERDI RESPIMAT 2 PUFF INH (13:16)
[2024-09-19] MEDS: SPIRIVA RESPIMAT 2.5 MCG 2 PUFF INH (13:16)
--- NOTE | 2024-09-19 13:19 | CM ---
CM met with Earnestine who lives with her SO Stephanie in a 2 story home with 2 steps to enter and 10 steps to bed/bathroom.
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 She is independent in activities of daily living.
Pt requested [facility] referral. Referral placed in [facility].
[facility] letter given explained; pt declined to sign the form. Copy on chart.
Pharmacy: [facility]
PCP: Dr Bone
PLAN: Home with resumption of [facility]
--- NOTE | 2024-09-19 14:32 | W.PN.CARDCBS ---
Today's Communication / Plan
-
Hold losartan to continue with the stasis
Continue to hold Lasix
Aldactone has been stopped
Continue to follow orthostatics as she remains hypotensive with standing
Impression / Plan
-
PCP: Dr. Bone
Pathologist: Dr. JERED Mccord
Impression:
Presented after syncopal episode
Hypotension
Recent admission at 09/04/2024 to 09/10/2024 w/ PNA
Chronic HFrEF
CAD
NSTEMI s/p urgent IABP and prox LAD PCI 06/04/21
residual total occlusion of the right coronary artery with complex tortuous disease in the distal circumflex
Moderate to severe aortic stenosis
Ischemic CM
Hypertension
Dyslipidemia
Permanent atrial fibrillation, diagnosed 03/2020
Eliquis anticoagulation [DVT and A. fib]
Chronic LBBB
COPD
History of DVT
History of Graves' disease
Neuropathy
History of mechanical fall with L1 compression fracture 10/2020
ECHO 06/02/21: EF 35-40%, septal, mid to distal anterior and apical hypokinesis, asymmetric septal hypertrophy, stage II diastolic dysfunction, mitral annular calcification, moderate MR, thickened aortic valve with peak/mean gradients 25/11 mmHg,
NATALIA 1.1 cm�, moderate to severe , mild TR, PAP 35 mmHg
Echo 07/25/2021: EF 35%, moderate aortic stenosis with mean pressure gradient of 11 mmHg and aortic valve area 1.0 cm, moderate MR
Echo 07/14/2024: EF 35 to 40%, moderate MR, moderate with peak/mean gradient 9/13 mmHg, NATALIA 0.9 cm�, mild to moderate TR, estimated PAP 25 to 30 mmHg
Plan:
Presumedly syncope was due to orthostasis and hypotension
Aldactone has been stopped and losartan decreased to 25 mg daily
Also Lasix has been held
There is still some orthostasis noted on examination and will hold losartan
Heart rate controlled in A-fib
Continue Coreg and Eliquis
HPI: Earnestine is an 83 year old female with PMH chronic HFrEF, CAD status post LAD PCI 06/04/2021 with residual total occlusion of the RCA, , ischemic cardiomyopathy, hypertension, hyperlipidemia, permanent atrial fibrillation, LBBB, COPD, prior DVT,
Graves' disease, and neuropathy. She presented to ER for evaluation after syncopal episode at home. She reports she was sitting at her kitchen table with the visiting nurse when she suddenly had syncopal episode. Episode was witnessed by
nurse. Son reports she was out of it for a few minutes. Patient does not remember passing out, but just remembers waking up in the ambulance. She and son note blood pressures have been on the low side at home over the past few weeks, at times as
low as 74/42. She was most recently seen in the cardiology office 08/14/2024. She was started on spironolactone at this visit. She then had hospital stay at 09/04/2024 to 09/10/2024 with pneumonia. Hypotension and lightheadedness was first
noted following most recent hospitalization. About 1 week ago she notes she felt lightheaded at the kitchen table and had syncopal episode which was unwitnessed. She was seen by her PCP a few days later and refused ER evaluation. She was arranged
for head CT which showed no evidence of intracranial abnormality. She reports between episode of syncope 1 week ago and episode earlier today, she had another episode of near syncope and lightheadedness. Otherwise, she reports no chest pain,
shortness of breath, palpitations, or lower extremity edema. Her weight has been downtrending and weight this morning at home was down to 118 pounds. Given recurrent syncope she has been admitted and cardiology consulted for evaluation. She
reports no dizziness/lightheadedness while resting on stretcher.
Progress Note - Pathologist
Subjective
Date of Service: September 19, 2024
No complaints
Objective
Labs:
09/19/24 06:23
09/19/24 06:23
Labs
Hgb 11.0 g/dL (12.0-16.0) L 09/19/24 06:23
Hct 33.4 % (37.0-47.0) L 09/19/24 06:23
Plt Count 141 10^3/uL (130-400) 09/19/24 06:23
Sodium 135 mmol/L (135-145) 09/19/24 06:23
Potassium 4.0 mmol/L (3.5-5.1) 09/19/24 06:23
BUN 32 mg/dl (7-17) H 09/19/24 06:23
Creatinine 1.1 mg/dL (0.6-1.0) H 09/19/24 06:23
Glucose 71 mg/dl (70-99) 09/19/24 06:23
Vital Signs and I&O:
Vital Signs
Temp Pulse Resp BP Pulse Ox
98 F 91 16 95/66 96
09/19/24 11:52 09/19/24 13:18 09/19/24 13:18 09/19/24 11:52 09/19/24 13:18
Vital Signs
Temp Pulse Resp BP Pulse Ox
98 F 91 16 95/66 96
09/19/24 11:52 09/19/24 13:18 09/19/24 13:18 09/19/24 11:52 09/19/24 13:18
Intake & Output
09/17/24 09/18/24 09/19/24 09/20/24
06:59 06:59 06:59 06:59
Intake Total 0 / 0
Balance 0 / 0
Physical Exam
Physical Exam
General: Well developed, well nourished in NAD.
Neck: Supple, no JVD, HJR, carotids +2 B/L, no bruits bilaterally.
Heart: Non displaced PMI, irregular, no murmurs, No S3, S4, no rubs.
Lungs: Clear to auscultation bilaterally, no wheeze, rhonchi, rubs bilaterally,
normal expiratory phase.
Extremities: No clubbing, cyanosis or edema bilaterally.
Neuro: Grossly nonfocal, awake, alert and oriented x3.
[2024-09-19] MEDS: COREG PO (20:09)
[2024-09-19] MEDS: TYLENOL 650 MG PO (20:19)
[2024-09-20] VITALS (7 sets, daily range): BP systolic 92–121; BP diastolic 47–73; PULSE 85–92; O2SAT 97; BMI 19.1
[2024-09-20] MEDS: ELIQUIS 2.5 MG PO ×2 (08:43→20:48)
[2024-09-20] MEDS: LIPITOR 40 MG PO (08:43)
[2024-09-20] MEDS: VITAMIN D3 (cholecalciferol) 50 MCG PO (08:43)
[2024-09-20] MEDS: COREG PO (08:43)
[2024-09-20] MEDS: FLUSH (NSS) 1 FLUSH IV (08:44)
[2024-09-20 09:03] LABS: Blood Urea Nitrogen 29 mg/dl (7-17); Calcium 8.4 mg/dl (8.4-10.2); Carbon Dioxide 25 mmol/L (22-30); Chloride 102 mmol/L (98-107); Estimated Creatinine Clearance 30 ml/min; Glucose 73 mg/dl (70-99); Sodium 134 mmol/L (135-145); eGFR 44.91
--- NOTE | 2024-09-20 09:06 | W.PN.HOSP.TC ---
Today's Communication/Plan
-
Holding diuretics and antihypertensives.
Assessment / Plan
Assessment / Plan
Physical exam:
General: Well Developed, Well Nourished and No Apparent Distress
HEENT: Normocephalic, Atraumatic and Moist Mucous Membranes
Respiratory: Decreased breath sounds bilateral. Clear to Auscultation; Negative Wheezes, Rales or Rhonchi
Cardiac: Regular Rhythm and S1/S2
GI: Soft, Nontender and Nondistended
Musculoskeletal: No Clubbing, No Cyanosis and No Edema
Neuro: Awake, Alert and Oriented, no neurological deficits appreciated
Psych: Calm
A/P:
Syncope:
Hypotension related and orthostatic
Orthostatic improved but remains relatively hypotensive
Cont holding diuretics
Discontinued Aldactone
Cont holding losartan
Only on beta-blockers at this point
Cardiology consult and follow-up appreciated
PT OT recommends skilled rehab
Discussed with son over the phone today on 09/20 and he is interested on mother going to rehab and he will come to the hospital to talk to her. CM consult for d/c dispo.
COPD and recent Pseudomonas pneumonia:
No signs of exacerbation
Continue outpatient treatment
Check for home oxygen needs
Hyponatremia:
Mild and improving
No need for further workup for now
Monitor trend
Hypokalemia:
Due to diuretics
Replete and trend
CKD:
Mild worsening from baseline and then stabilized
Holding diuretic
Paroxysmal Atrial Fibrillation
-Continue Eliquis for anticoagulation
-Continue Coreg for rate control
Chronic HFrEF
-Holding Lasix and Spironolactone
-Monitor Is&Os and Daily Weights
Essential Hypertension
-Continue Coreg with holding parameters
-Holding losartan
Hyperlipidemia
-Continue atorvastatin
DVT proph: Eliquis
Code Status: Full Code
Anticipated Discharge: 24 - 48 hours
Subjective/Interval History
-
Date of Service: September 20, 2024
Patient has some dyspnea on exertion and weak overall. No sob at rest. No syncope.
Objective Data
-
Labs:
Laboratory Results
09/20/24
07:25
Sodium 134 L
Potassium 4.0
Chloride 102
Carbon Dioxide 25
BUN 29 H
Creatinine 1.2 H
Glucose 73
Calcium 8.4
Vital Signs:
Vital Signs
Temp Pulse Resp BP Pulse Ox
98.5 F 82 18 92/55 95
09/20/24 07:35 09/20/24 08:43 09/20/24 07:35 09/20/24 08:43 09/20/24 07:35
I&O
09/19/24 09/20/24 09/21/24
06:59 06:59 06:59
Intake Total 0 / 0 720 / 720
Balance 0 / 0 720 / 720
--- NOTE | 2024-09-20 10:53 | W.PN.CARDCBS ---
Today's Communication / Plan
-
Orthostasis has resolved
Lasix, Aldactone, losartan on hold and will need to eventually resume Lasix possibly as an outpatient
May need rehab as she lives alone
Impression / Plan
-
PCP: Dr. Bone
Forge Operator: Dr. JERED Mccord
Impression:
Presented after syncopal episode
Orthostatic hypotension
Recent admission at 09/04/2024 to 09/10/2024 w/ PNA
Chronic HFrEF
CAD
NSTEMI s/p urgent IABP and prox LAD PCI 06/04/21
residual total occlusion of the right coronary artery with complex tortuous disease in the distal circumflex
Moderate to severe aortic stenosis
Ischemic CM
Hypertension
Dyslipidemia
Permanent atrial fibrillation, diagnosed 03/2020
Eliquis anticoagulation [DVT and A. fib]
Chronic LBBB
COPD
History of DVT
History of Graves' disease
Neuropathy
History of mechanical fall with L1 compression fracture 10/2020
ECHO 06/02/21: EF 35-40%, septal, mid to distal anterior and apical hypokinesis, asymmetric septal hypertrophy, stage II diastolic dysfunction, mitral annular calcification, moderate MR, thickened aortic valve with peak/mean gradients 25/11 mmHg,
NATALIA 1.1 cm�, moderate to severe , mild TR, PAP 35 mmHg
Echo 07/25/2021: EF 35%, moderate aortic stenosis with mean pressure gradient of 11 mmHg and aortic valve area 1.0 cm, moderate MR
Echo 07/14/2024: EF 35 to 40%, moderate MR, moderate with peak/mean gradient 9/13 mmHg, NATALIA 0.9 cm�, mild to moderate TR, estimated PAP 25 to 30 mmHg
Plan:
Orthostasis has resolved based on vital signs
Lasix, Aldactone, losartan on hold
Creatinine remains mildly abnormal at 1.2 but stable
At some point will need to restart Lasix possibly as an outpatient
She is very weak and lives alone and may need rehab
Heart rate controlled in A-fib
Continue Coreg and Eliquis
HPI: Earnestine is an 83 year old female with PMH chronic HFrEF, CAD status post LAD PCI 06/04/2021 with residual total occlusion of the RCA, , ischemic cardiomyopathy, hypertension, hyperlipidemia, permanent atrial fibrillation, LBBB, COPD, prior DVT,
Graves' disease, and neuropathy. She presented to ER for evaluation after syncopal episode at home. She reports she was sitting at her kitchen table with the visiting nurse when she suddenly had syncopal episode. Episode was witnessed by
nurse. Son reports she was out of it for a few minutes. Patient does not remember passing out, but just remembers waking up in the ambulance. She and son note blood pressures have been on the low side at home over the past few weeks, at times as
low as 74/42. She was most recently seen in the cardiology office 08/14/2024. She was started on spironolactone at this visit. She then had hospital stay at 09/04/2024 to 09/10/2024 with pneumonia. Hypotension and lightheadedness was first
noted following most recent hospitalization. About 1 week ago she notes she felt lightheaded at the kitchen table and had syncopal episode which was unwitnessed. She was seen by her PCP a few days later and refused ER evaluation. She was arranged
for head CT which showed no evidence of intracranial abnormality. She reports between episode of syncope 1 week ago and episode earlier today, she had another episode of near syncope and lightheadedness. Otherwise, she reports no chest pain,
shortness of breath, palpitations, or lower extremity edema. Her weight has been downtrending and weight this morning at home was down to 118 pounds. Given recurrent syncope she has been admitted and cardiology consulted for evaluation. She
reports no dizziness/lightheadedness while resting on stretcher.
Progress Note - Forge Operator
Subjective
Date of Service: September 20, 2024
No complaints
Objective
Labs:
09/19/24 06:23
09/20/24 07:25
Labs
Hgb 11.0 g/dL (12.0-16.0) L 09/19/24 06:23
Hct 33.4 % (37.0-47.0) L 09/19/24 06:23
Plt Count 141 10^3/uL (130-400) 09/19/24 06:23
Sodium 134 mmol/L (135-145) L 09/20/24 07:25
Potassium 4.0 mmol/L (3.5-5.1) 09/20/24 07:25
BUN 29 mg/dl (7-17) H 09/20/24 07:25
Creatinine 1.2 mg/dL (0.6-1.0) H 09/20/24 07:25
Glucose 73 mg/dl (70-99) 09/20/24 07:25
Vital Signs and I&O:
Vital Signs
Temp Pulse Resp BP Pulse Ox
98.5 F 82 18 92/55 95
09/20/24 07:35 09/20/24 08:43 09/20/24 07:35 09/20/24 08:43 09/20/24 07:35
Vital Signs
Temp Pulse Resp BP Pulse Ox
98.5 F 82 18 92/55 95
09/20/24 07:35 09/20/24 08:43 09/20/24 07:35 09/20/24 08:43 09/20/24 07:35
Intake & Output
09/18/24 09/19/24 09/20/24 09/21/24
06:59 06:59 06:59 06:59
Intake Total 0 / 0 720 / 720
Balance 0 / 0 720 / 720
Physical Exam
Physical Exam
General: Well developed, well nourished in NAD.
Neck: Supple, no JVD, HJR, carotids +2 B/L, no bruits bilaterally.
Heart: Non displaced PMI, irregular, no murmurs, No S3, S4, no rubs.
Lungs: Scattered rhonchi
Extremities: No clubbing, cyanosis or edema bilaterally.
Neuro: Grossly nonfocal, awake, alert and oriented x3.
[2024-09-20] MEDS: STRIVERDI RESPIMAT 2 PUFF INH (12:34)
[2024-09-20] MEDS: SPIRIVA RESPIMAT 2.5 MCG 2 PUFF INH (12:34)
[2024-09-20] MEDS: TYLENOL 650 MG PO (20:46)
[2024-09-20] MEDS: COREG 3.125 MG PO (20:47)
[2024-09-21] VITALS (8 sets, daily range): BP systolic 102–141; BP diastolic 53–74; PULSE 70–91; BMI 19.2
[2024-09-21 07:20] LABS: Blood Urea Nitrogen 24 mg/dl (7-17); Calcium 8.1 mg/dl (8.4-10.2); Carbon Dioxide 27 mmol/L (22-30); Chloride 103 mmol/L (98-107); Estimated Creatinine Clearance 36 ml/min; Glucose 86 mg/dl (70-99); Potassium 3.9 mmol/L (3.5-5.1); Sodium 136 mmol/L (135-145)
--- NOTE | 2024-09-21 09:01 | W.PN.HOSP.TC ---
Today's Communication/Plan
-
Monitor blood pressure. Discharge planning
Assessment / Plan
Assessment / Plan
Physical exam:
General: Well Developed, Well Nourished and No Apparent Distress
HEENT: Normocephalic, Atraumatic and Moist Mucous Membranes
Respiratory: Decreased breath sounds bilateral. Clear to Auscultation; Negative Wheezes, Rales or Rhonchi
Cardiac: Regular Rhythm and S1/S2
GI: Soft, Nontender and Nondistended
Musculoskeletal: No Clubbing, No Cyanosis and No Edema
Neuro: Awake, Alert and Oriented, no neurological deficits appreciated
Psych: Calm
A/P:
Syncope:
Hypotension related and orthostatic
Monitor
Cont holding diuretics
Discontinued Aldactone
Cont holding losartan
Only on beta-blockers at this point
Cardiology consult and follow-up appreciated
PT OT recommends skilled rehab
Discussed with son over the phone on 09/20 and he is interested on mother going to rehab and he will come to the hospital to talk to her. CM consult for d/c dispo.
COPD and recent Pseudomonas pneumonia:
No signs of exacerbation
Continue outpatient treatment
Check for home oxygen needs
Hyponatremia:
Mild and improving
No need for further workup for now
Monitor trend
Hypokalemia:
Due to diuretics
Replete and trend
CKD:
Mild worsening from baseline and then stabilized
Holding diuretic
Paroxysmal Atrial Fibrillation
-Continue Eliquis for anticoagulation
-Continue Coreg for rate control
Chronic HFrEF
-Holding Lasix and Spironolactone
-Monitor Is&Os and Daily Weights
Essential Hypertension
-Continue Coreg with holding parameters
-Holding losartan
Hyperlipidemia
-Continue atorvastatin
DVT proph: Eliquis
Code Status: Full Code
Anticipated Discharge: Within 24 hours
Subjective/Interval History
-
Date of Service: September 21, 2024
Generalized weakness. + Orthostatics today. Blood pressure relatively better although low.
Objective Data
-
Labs:
Laboratory Results
09/21/24
06:36
Sodium 136
Potassium 3.9
Chloride 103
Carbon Dioxide 27
BUN 24 H
Creatinine 1.0
Glucose 86
Calcium 8.1 L
Vital Signs:
Vital Signs
Temp Pulse Resp BP Pulse Ox
98.2 F 77 17 110/61 96
09/21/24 03:55 09/20/24 23:55 09/21/24 03:55 09/20/24 23:55 09/21/24 03:55
I&O
09/20/24 09/21/24 09/22/24
06:59 06:59 06:59
Intake Total 720 / 720 720 / 720
Balance 720 / 720 720 / 720
[2024-09-21] MEDS: LIPITOR 40 MG PO (10:30)
[2024-09-21] MEDS: VITAMIN D3 (cholecalciferol) 50 MCG PO (10:30)
[2024-09-21] MEDS: COREG 3.125 MG PO ×2 (10:32→20:16)
[2024-09-21] MEDS: ELIQUIS 2.5 MG PO ×2 (10:32→20:16)
[2024-09-21] MEDS: STRIVERDI RESPIMAT 2 PUFF INH (13:37)
[2024-09-21] MEDS: SPIRIVA RESPIMAT 2.5 MCG 2 PUFF INH (13:37)
--- NOTE | 2024-09-21 15:57 | W.PN.CARDCBS ---
Today's Communication / Plan
-
Guideline directed medical therapy for heart failure with reduced ejection fraction as tolerated
Orthostatic hypotension will add knee-high stockings on in the morning and off in the p.m. Continue to hold Aldactone, Lasix and losartan.
Follow heart rate on low-dose carvedilol.
Physical therapy.
Impression / Plan
-
PCP: Dr. Bone
Airport Operations Coordinator: Dr. JERED Mccord
Impression:
Presented after syncopal episode
Orthostatic hypotension
Recent admission at 09/04/2024 to 09/10/2024 w/ PNA
Chronic HFrEF
CAD
NSTEMI s/p urgent IABP and prox LAD PCI 06/04/21
residual total occlusion of the right coronary artery with complex tortuous disease in the distal circumflex
Moderate to severe aortic stenosis
Ischemic CM
Hypertension
Dyslipidemia
Permanent atrial fibrillation, diagnosed 03/2020
Eliquis anticoagulation [DVT and A. fib]
Chronic LBBB
COPD
History of DVT
History of Graves' disease
Neuropathy
History of mechanical fall with L1 compression fracture 10/2020
ECHO 06/02/21: EF 35-40%, septal, mid to distal anterior and apical hypokinesis, asymmetric septal hypertrophy, stage II diastolic dysfunction, mitral annular calcification, moderate MR, thickened aortic valve with peak/mean gradients 25/11 mmHg,
NATALIA 1.1 cm�, moderate to severe , mild TR, PAP 35 mmHg
Echo 07/25/2021: EF 35%, moderate aortic stenosis with mean pressure gradient of 11 mmHg and aortic valve area 1.0 cm, moderate MR
Echo 07/14/2024: EF 35 to 40%, moderate MR, moderate with peak/mean gradient 9/13 mmHg, NATALIA 0.9 cm�, mild to moderate TR, estimated PAP 25 to 30 mmHg
Plan:
She had orthostatic hypotension. Blood pressure stable but on the low side. Continue hold on Lasix, Aldactone and losartan.
Will continue carvedilol for now but continue to follow given heart rates in permanent atrial fibrillation are on the low side.
Physical therapy. She is very weak and lives alone and may need rehab
Caution with changing position
Knee-high compression stockings on in the morning and off in the p.m.
She has heart failure with reduced ejection fraction however guideline directed medical therapy is now on hold given low blood pressure
Lasix, Aldactone, losartan on hold
At some point will need to restart Lasix possibly as an outpatient at low-dose.
Atrial fibrillation heart rate remains stable.
Continue anticoagulation.
Creatinine remains stable
HPI: Earnestine is an 83 year old female with PMH chronic HFrEF, CAD status post LAD PCI 06/04/2021 with residual total occlusion of the RCA, , ischemic cardiomyopathy, hypertension, hyperlipidemia, permanent atrial fibrillation, LBBB, COPD, prior DVT,
Graves' disease, and neuropathy. She presented to ER for evaluation after syncopal episode at home. She reports she was sitting at her kitchen table with the visiting nurse when she suddenly had syncopal episode. Episode was witnessed by
nurse. Son reports she was out of it for a few minutes. Patient does not remember passing out, but just remembers waking up in the ambulance. She and son note blood pressures have been on the low side at home over the past few weeks, at times as
low as 74/42. She was most recently seen in the cardiology office 08/14/2024. She was started on spironolactone at this visit. She then had hospital stay at 09/04/2024 to 09/10/2024 with pneumonia. Hypotension and lightheadedness was first
noted following most recent hospitalization. About 1 week ago she notes she felt lightheaded at the kitchen table and had syncopal episode which was unwitnessed. She was seen by her PCP a few days later and refused ER evaluation. She was arranged
for head CT which showed no evidence of intracranial abnormality. She reports between episode of syncope 1 week ago and episode earlier today, she had another episode of near syncope and lightheadedness. Otherwise, she reports no chest pain,
shortness of breath, palpitations, or lower extremity edema. Her weight has been downtrending and weight this morning at home was down to 118 pounds. Given recurrent syncope she has been admitted and cardiology consulted for evaluation. She
reports no dizziness/lightheadedness while resting on stretcher.
Progress Note - Airport Operations Coordinator
Subjective
Date of Service: September 21, 2024
Patient denies chest pain and palpitations. Does not feel dizzy.
Objective
Labs:
09/19/24 06:23
09/21/24 06:36
Labs
Hgb 11.0 g/dL (12.0-16.0) L 09/19/24 06:23
Hct 33.4 % (37.0-47.0) L 09/19/24 06:23
Plt Count 141 10^3/uL (130-400) 09/19/24 06:23
Sodium 136 mmol/L (135-145) 09/21/24 06:36
Potassium 3.9 mmol/L (3.5-5.1) 09/21/24 06:36
BUN 24 mg/dl (7-17) H 09/21/24 06:36
Creatinine 1.0 mg/dL (0.6-1.0) 09/21/24 06:36
Glucose 86 mg/dl (70-99) 09/21/24 06:36
Vital Signs and I&O:
Vital Signs
Temp Pulse Resp BP Pulse Ox
98 F 82 16 111/57 96
09/21/24 11:55 09/21/24 13:42 09/21/24 13:42 09/21/24 11:55 09/21/24 13:42
Vital Signs
Temp Pulse Resp BP Pulse Ox
98 F 82 16 111/57 96
09/21/24 11:55 09/21/24 13:42 09/21/24 13:42 09/21/24 11:55 09/21/24 13:42
Intake & Output
09/19/24 09/20/24 09/21/24 09/22/24
06:59 06:59 06:59 06:59
Intake Total 0 / 0 720 / 720 720 / 720
Balance 0 / 0 720 / 720 720 / 720
Physical Exam
Physical Exam
General: Well developed, well nourished in NAD.
Heart: Irregularly irregular, no murmurs, No S3, S4, no rubs.
Lungs: Coarse anterior breath sounds.
Extremities: No clubbing, cyanosis or edema bilaterally.
Neuro: Grossly nonfocal, awake,.
--- NOTE | 2024-09-21 17:23 | CM ---
PT OT indicated SNF at dc.
Spoke with pt in room reviewed PT OT and SNF.
Pt requested [facility].
Referral placed in care port.
Will need auth
PLAN To SNf after located and auth obtained
[2024-09-22] VITALS (8 sets, daily range): BP systolic 90–127; BP diastolic 53–68; PULSE 65–91; BMI 19.3
[2024-09-22] MEDS: COREG 3.125 MG PO ×2 (08:18→20:18)
[2024-09-22] MEDS: ELIQUIS 2.5 MG PO ×2 (08:19→20:18)
[2024-09-22] MEDS: VITAMIN D3 (cholecalciferol) 50 MCG PO (08:19)
[2024-09-22] MEDS: LIPITOR 40 MG PO (08:19)
[2024-09-22] MEDS: FLUSH (NSS) 1 FLUSH IV (08:21)
--- NOTE | 2024-09-22 09:28 | W.PN.HOSP.TC ---
Today's Communication/Plan
-
Discharge planning
Assessment / Plan
Assessment / Plan
Physical exam:
General: Well Developed, Well Nourished and No Apparent Distress
HEENT: Normocephalic, Atraumatic and Moist Mucous Membranes
Respiratory: Decreased breath sounds bilateral. Clear to Auscultation; Negative Wheezes, Rales or Rhonchi
Cardiac: Regular Rhythm and S1/S2
GI: Soft, Nontender and Nondistended
Musculoskeletal: No Clubbing, No Cyanosis and No Edema
Neuro: Awake, Alert and Oriented, no neurological deficits appreciated
Psych: Calm
A/P:
Syncope:
Hypotension related and orthostatic
Monitor
Cont holding diuretics
Discontinued Aldactone
Cont holding losartan
Only on beta-blockers at this point--> Per cardiology monitoring heart rate carefully while on beta-may and recommended to consider outpatient low-dose diuretic upon discharge.
Cardiology consult and follow-up appreciated
PT OT recommends skilled rehab
Discussed with son over the phone on 09/20 and he is interested on mother going to rehab and he discussed with his mother and they are all in agreement on going to rehab. CM working on d/c dispo.
COPD and recent Pseudomonas pneumonia:
No signs of exacerbation
Continue outpatient treatment
Check for home oxygen needs
Hyponatremia:
Mild and improving
No need for further workup for now
Monitor trend
Hypokalemia:
Due to diuretics
Replete and trend
CKD:
Mild worsening from baseline and then stabilized
Holding diuretic
Paroxysmal Atrial Fibrillation
-Continue Eliquis for anticoagulation
-Continue Coreg for rate control
Chronic HFrEF
-Holding Lasix and Spironolactone
-Monitor Is&Os and Daily Weights
Essential Hypertension
-Continue Coreg with holding parameters
-Holding losartan
Hyperlipidemia
-Continue atorvastatin
DVT proph: Eliquis
Code Status: Full Code
Anticipated Discharge: 24 - 48 hours
Subjective/Interval History
-
Date of Service: September 22, 2024
Patient feels better overall. No worsening shortness of breath. No chest pain
Objective Data
-
Vital Signs:
Vital Signs
Temp Pulse Resp BP Pulse Ox
98 F 81 18 127/67 96
09/22/24 07:26 09/22/24 08:18 09/22/24 07:26 09/22/24 08:18 09/22/24 07:26
I&O
09/21/24 09/22/24 09/23/24
06:59 06:59 06:59
Intake Total 720 / 720 820 / 820
Balance 720 / 720 820 / 820
--- NOTE | 2024-09-22 11:11 | CM ---
Addendum entered by Hayde Lock 09/22/24 12:47:
[facility] not have bed availability for discharge before Wednesday. CM attempting to identify other available beds for facilities in network with pt's insurance.
Original Note:
CM continues to follow for discharge to SNF. [facility]errals [facility], but have not yet responded.
Anticipate transfer to SNF; will need insurance authorization once accepting facility has been identified.
[2024-09-22] MEDS: STRIVERDI RESPIMAT 2 PUFF INH (12:14)
[2024-09-22] MEDS: SPIRIVA RESPIMAT 2.5 MCG 2 PUFF INH (12:15)
--- NOTE | 2024-09-22 13:54 | W.PN.CARDCBS ---
Addendum entered and electronically signed by Ruiz Mccord MD 09/22/24 17:52:
84-year-old woman admitted with syncope presumed secondary to orthostasis, recently admitted with PNA
She feels better now and presents.
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
branch block, COPD, alcohol use, DVT, ADL dysfunction
Current meds: Apixaban 2.5 twice daily, atorvastatin 40 mg a day, carvedilol 3.125 mg twice daily, Spiriva, losartan 25 at bedtime currently on hold, Striverdi. As outpatient had been taking Lasix 40/20 a day, losartan was 50 mg a day and
spironolactone 12.5 daily, these are currently on hold
120/67, pulse 66, resp rate 18, afebrile, sats 95%, weight is 54.1 kg, stable weight on September 18 was 58 kg, she was 55.2 kg at discharge, frail, diminished breath sounds bilaterally, regular rate and rhythm, relatively bradycardic, aortic stenosis
murmur JVD okay not much edema,
No labs today, creatinine was 1.0 with BUN 24 yesterday, proBNP was 4280 on September 04, was 7000 August 22
Telemetry: Relatively bradycardic
Plan:
Overall stable at this time. However, she is relatively bradycardic. Currently no evidence of heart failure on exam.
Likely will need to reinitiate furosemide, but will hold for now. Continue to hold losartan.
I considered but did not decrease carvedilol to 1.5625 mg twice daily
From our standpoint, proceed with discharge planning, patient will be unable to return to her home at the present time.
Original Note:
Today's Communication / Plan
-
Continue to hold Lasix, Aldactone and losartan
Continue low-dose Coreg as blood pressure allows
Utilize compression stockings and change positions slowly
Eventual discharge to rehab when bed available
Impression / Plan
-
PCP: Dr. Bone
Marble And Granite Polisher: Dr. JERED Mccord
Impression:
Presented after syncopal episode
Orthostatic hypotension
Recent admission at 09/04/2024 to 09/10/2024 w/ PNA
Chronic HFrEF
CAD
NSTEMI s/p urgent IABP and prox LAD PCI 06/04/21
residual total occlusion of the right coronary artery with complex tortuous disease in the distal circumflex
Moderate to severe aortic stenosis
Ischemic CM
Hypertension
Dyslipidemia
Permanent atrial fibrillation, diagnosed 03/2020
Eliquis anticoagulation [DVT and A. fib]
Chronic LBBB
COPD
History of DVT
History of Graves' disease
Neuropathy
History of mechanical fall with L1 compression fracture 10/2020
ECHO 06/02/21: EF 35-40%, septal, mid to distal anterior and apical hypokinesis, asymmetric septal hypertrophy, stage II diastolic dysfunction, mitral annular calcification, moderate MR, thickened aortic valve with peak/mean gradients 25/11 mmHg,
NATALIA 1.1 cm�, moderate to severe , mild TR, PAP 35 mmHg
Echo 07/25/2021: EF 35%, moderate aortic stenosis with mean pressure gradient of 11 mmHg and aortic valve area 1.0 cm, moderate MR
Echo 07/14/2024: EF 35 to 40%, moderate MR, moderate with peak/mean gradient 9/13 mmHg, NATALIA 0.9 cm�, mild to moderate TR, estimated PAP 25 to 30 mmHg
Plan:
She had orthostatic hypotension. Blood pressure stable but on the low side still Remains off Lasix, Aldactone and losartan.
Will continue carvedilol for now but continue to follow given heart rates in permanent atrial fibrillation are on the low side. Review of telemetry shows pauses none greater than 2.5 seconds so no indication for PPM at this time.
Consider outpatient monitor in follow up
Physical therapy. She is very weak and lives alone and per PT/OT assessment would benefit from rehab
Caution with changing position
Knee-high compression stockings on in the morning and off in the p.m.
She has heart failure with reduced ejection fraction however guideline directed medical therapy is now on hold given low blood pressure
Weight stable and no evidence of volume overload at this time
Lasix, Aldactone, losartan on hold; remains on low-dose Coreg
At some point will need to restart Lasix possibly as an outpatient at low-dose.
Atrial fibrillation heart rate remains stable.
Continue anticoagulation.
See above
Creatinine remains stable
HPI: Earnestine is an 83 year old female with PMH chronic HFrEF, CAD status post LAD PCI 06/04/2021 with residual total occlusion of the RCA, , ischemic cardiomyopathy, hypertension, hyperlipidemia, permanent atrial fibrillation, LBBB, COPD, prior DVT,
Graves' disease, and neuropathy. She presented to ER for evaluation after syncopal episode at home. She reports she was sitting at her kitchen table with the visiting nurse when she suddenly had syncopal episode. Episode was witnessed by
nurse. Son reports she was out of it for a few minutes. Patient does not remember passing out, but just remembers waking up in the ambulance. She and son note blood pressures have been on the low side at home over the past few weeks, at times as
low as 74/42. She was most recently seen in the cardiology office 08/14/2024. She was started on spironolactone at this visit. She then had hospital stay at 09/04/2024 to 09/10/2024 with pneumonia. Hypotension and lightheadedness was first
noted following most recent hospitalization. About 1 week ago she notes she felt lightheaded at the kitchen table and had syncopal episode which was unwitnessed. She was seen by her PCP a few days later and refused ER evaluation. She was arranged
for head CT which showed no evidence of intracranial abnormality. She reports between episode of syncope 1 week ago and episode earlier today, she had another episode of near syncope and lightheadedness. Otherwise, she reports no chest pain,
shortness of breath, palpitations, or lower extremity edema. Her weight has been downtrending and weight this morning at home was down to 118 pounds. Given recurrent syncope she has been admitted and cardiology consulted for evaluation. She
reports no dizziness/lightheadedness while resting on stretcher.
Progress Note - Marble And Granite Polisher
Subjective
Date of Service: September 22, 2024
Patient seen and examined. Patient lying comfortably in bed. Patient reports she is feeling well without additional episodes of dizziness or near syncope
Objective
Labs:
09/19/24 06:23
09/21/24 06:36
Labs
Hgb 11.0 g/dL (12.0-16.0) L 09/19/24 06:23
Hct 33.4 % (37.0-47.0) L 09/19/24 06:23
Plt Count 141 10^3/uL (130-400) 09/19/24 06:23
Sodium 136 mmol/L (135-145) 09/21/24 06:36
Potassium 3.9 mmol/L (3.5-5.1) 09/21/24 06:36
BUN 24 mg/dl (7-17) H 09/21/24 06:36
Creatinine 1.0 mg/dL (0.6-1.0) 09/21/24 06:36
Glucose 86 mg/dl (70-99) 09/21/24 06:36
Vital Signs and I&O:
Vital Signs
Temp Pulse Resp BP Pulse Ox
98.2 F 86 18 100/53 96
09/22/24 11:05 09/22/24 12:17 09/22/24 12:17 09/22/24 11:09/22/24 12:17
Vital Signs
Temp Pulse Resp BP Pulse Ox
98.2 F 86 18 100/53 96
09/22/24 11:05 09/22/24 12:17 09/22/24 12:17 09/22/24 11:05 09/22/24 12:17
Intake & Output
09/20/24 09/21/24 09/22/24 09/23/24
06:59 06:59 06:59 06:59
Intake Total 720 / 720 720 / 720 820 / 820
Balance 720 / 720 720 / 720 820 / 820
Physical Exam
Physical Exam
GEN: No distress, awake, Ox3, lying in bed
HEENT: supple, anicteric, mmm
LUNGS: CTA, no wheezes/rales
CV: Irregularly irregular, S1/S2, 2/6 syst murmur, no rub or gallop
ABD: soft, BS+, NT/ND
EXT: No edema, clubbing or cyanosis
NEURO: Gross non-focal
SKIN: No rash, warm, dry, pink
[2024-09-23] VITALS (8 sets, daily range): BP systolic 92–133; BP diastolic 52–71; BMI 19.2
[2024-09-23 07:02] LABS: Hematocrit 32.8 % (37.0-47.0); Hemoglobin 10.7 g/dL (12.0-16.0); Mean Corp Hgb Conc. 32.6 g/dL (33.0-37.0); Mean Corpuscular Hgb 32.7 pg (27.0-31.0); Mean Corpuscular Volume 100.3 fL (81.0-99.0); Red Blood Cell Count 3.27 10^6/uL (4.20-5.40); Red Cell Dist. Width 13.4 % (11.5-14.5)
[2024-09-23 07:30] LABS: Blood Urea Nitrogen 17 mg/dl (7-17); Calcium 8.2 mg/dl (8.4-10.2); Carbon Dioxide 24 mmol/L (22-30); Chloride 103 mmol/L (98-107); Estimated Creatinine Clearance 40 ml/min; Glucose 85 mg/dl (70-99); Sodium 136 mmol/L (135-145); eGFR > 60.00
[2024-09-23 07:38] LABS: Mean Platelet Volume 10.5 fL (7.4-10.4); Platelet Count 94 10^3/uL (130-400)
--- NOTE | 2024-09-23 08:45 | W.PN.HOSP.TC ---
Today's Communication/Plan
-
Discharge plan
Assessment / Plan
Assessment / Plan
Physical exam:
General: Well Developed, Well Nourished and No Apparent Distress
HEENT: Normocephalic, Atraumatic and Moist Mucous Membranes
Respiratory: Decreased breath sounds bilateral. Clear to Auscultation; Negative Wheezes, Rales or Rhonchi
Cardiac: Regular Rhythm and S1/S2
GI: Soft, Nontender and Nondistended
Musculoskeletal: No Clubbing, No Cyanosis and No Edema
Neuro: Awake, Alert and Oriented, no neurological deficits appreciated
Psych: Calm
A/P:
Syncope:
Hypotension related and orthostatic
Monitor
Cont holding diuretics
Discontinued Aldactone
Cont holding losartan
Only on beta-blockers at this point--> Per cardiology monitoring heart rate carefully while on beta-may and considering decreasing beta-blockers doses and recommended to consider outpatient low-dose diuretic upon discharge.
Cardiology consult and follow-up appreciated
PT OT recommends skilled rehab
Discussed with son today again on 09/23 at bedside
manager in training for discharge disposition
COPD and recent Pseudomonas pneumonia:
No signs of exacerbation
Continue outpatient treatment
Check for home oxygen needs
Hyponatremia:
Mild and improving
No need for further workup for now
Monitor trend
Hypokalemia:
Due to diuretics
Replete and trend
CKD:
Mild worsening from baseline and then stabilized
Holding diuretic
Paroxysmal Atrial Fibrillation
-Continue Eliquis for anticoagulation
-Continue Coreg for rate control
Chronic HFrEF
-Holding Lasix and Spironolactone
-Monitor Is&Os and Daily Weights
Essential Hypertension
-Continue Coreg with holding parameters
-Holding losartan
Hyperlipidemia
-Continue atorvastatin
DVT proph: Eliquis
Code Status: Full Code
Anticipated Discharge: 24 - 48 hours
Subjective/Interval History
-
Date of Service: September 23, 2024
Patient feels well overall. No worsening shortness of breath. No chest pain. Afebrile
Objective Data
-
Labs:
Laboratory Results
09/23/24
06:20
WBC 6.0
Hgb 10.7 L
Hct 32.8 L
Plt Count 94 L D
Sodium 136
Potassium 4.0
Chloride 103
Carbon Dioxide 24
BUN 17
Creatinine 0.9
Glucose 85
Calcium 8.2 L
Vital Signs:
Vital Signs
Temp Pulse Resp BP Pulse Ox
97.9 F 76 18 129/70 96
09/23/24 07:40 09/23/24 07:40 09/23/24 07:40 09/23/24 07:40 09/23/24 07:40
I&O
09/22/24 09/23/24 09/24/24
06:59 06:59 06:59
Intake Total 820 / 820 860 / 860 300 / 300
Balance 820 / 820 860 / 860 300 / 300
[2024-09-23] MEDS: LIPITOR 40 MG PO (09:18)
[2024-09-23] MEDS: VITAMIN D3 (cholecalciferol) 50 MCG PO (09:19)
[2024-09-23] MEDS: COREG 3.125 MG PO ×2 (09:19→20:19)
[2024-09-23] MEDS: ELIQUIS 2.5 MG PO ×2 (09:19→20:19)
[2024-09-23] MEDS: SPIRIVA RESPIMAT 2.5 MCG 2 PUFF INH (11:59)
[2024-09-23] MEDS: STRIVERDI RESPIMAT 2 PUFF INH (11:59)
[2024-09-23] MEDS: MUCINEX 600 MG PO ×2 (13:18→20:19)
--- NOTE | 2024-09-23 14:30 | W.PN.CARDCBS ---
Today's Communication / Plan
-
On discharge with start Lasix 20 mg daily.
Call if she gains 3 pounds in 1 day or 5 pounds in 1 week.
Cardiac currently stable. We will sign off. Please reconsult us if new issues develop.
Impression / Plan
-
PCP: Dr. Bone
Sleep Tech: Dr. JERED Mccord
Impression:
Presented after syncopal episode
Orthostatic hypotension
Recent admission at 09/04/2024 to 09/10/2024 w/ PNA
Chronic HFrEF
CAD
NSTEMI s/p urgent IABP and prox LAD PCI 06/04/21
residual total occlusion of the right coronary artery with complex tortuous disease in the distal circumflex
Moderate to severe aortic stenosis
Ischemic CM
Hypertension
Dyslipidemia
Permanent atrial fibrillation, diagnosed 03/2020
Eliquis anticoagulation [DVT and A. fib]
Chronic LBBB
COPD
History of DVT
History of Graves' disease
Neuropathy
History of mechanical fall with L1 compression fracture 10/2020
ECHO 06/02/21: EF 35-40%, septal, mid to distal anterior and apical hypokinesis, asymmetric septal hypertrophy, stage II diastolic dysfunction, mitral annular calcification, moderate MR, thickened aortic valve with peak/mean gradients 25/11 mmHg,
NATALIA 1.1 cm�, moderate to severe , mild TR, PAP 35 mmHg
Echo 07/25/2021: EF 35%, moderate aortic stenosis with mean pressure gradient of 11 mmHg and aortic valve area 1.0 cm, moderate MR
Echo 07/14/2024: EF 35 to 40%, moderate MR, moderate with peak/mean gradient 9/13 mmHg, NATALIA 0.9 cm�, mild to moderate TR, estimated PAP 25 to 30 mmHg
Plan:
She had orthostatic hypotension. Blood pressure and vital signs remained stable. Remains off Lasix, Aldactone and losartan. Hopefully can eventually reinstitute guideline directed medical treatment.
Will continue carvedilol for now. Atrial fibrillation noted. No significant bradycardia. Continue to follow.
Physical therapy. She is very weak and lives alone and per PT/OT assessment would benefit from rehab
On discharge would recommend Lasix 20 mg daily with call if she gains 3 pounds in 1 day or 5 pounds in 1 week.
Caution with changing position
Knee-high compression stockings on in the morning and off in the p.m.
Weight stable and no evidence of volume overload at this time
Lasix, Aldactone, losartan on hold; remains on low-dose Coreg
Atrial fibrillation heart rate remains stable.
Continue anticoagulation.
Creatinine remains stable
HPI: Earnestine is an 83 year old female with PMH chronic HFrEF, CAD status post LAD PCI 06/04/2021 with residual total occlusion of the RCA, , ischemic cardiomyopathy, hypertension, hyperlipidemia, permanent atrial fibrillation, LBBB, COPD, prior DVT,
Graves' disease, and neuropathy. She presented to ER for evaluation after syncopal episode at home. She reports she was sitting at her kitchen table with the visiting nurse when she suddenly had syncopal episode. Episode was witnessed by
nurse. Son reports she was out of it for a few minutes. Patient does not remember passing out, but just remembers waking up in the ambulance. She and son note blood pressures have been on the low side at home over the past few weeks, at times as
low as 74/42. She was most recently seen in the cardiology office 08/14/2024. She was started on spironolactone at this visit. She then had hospital stay at 09/04/2024 to 09/10/2024 with pneumonia. Hypotension and lightheadedness was first
noted following most recent hospitalization. About 1 week ago she notes she felt lightheaded at the kitchen table and had syncopal episode which was unwitnessed. She was seen by her PCP a few days later and refused ER evaluation. She was arranged
for head CT which showed no evidence of intracranial abnormality. She reports between episode of syncope 1 week ago and episode earlier today, she had another episode of near syncope and lightheadedness. Otherwise, she reports no chest pain,
shortness of breath, palpitations, or lower extremity edema. Her weight has been downtrending and weight this morning at home was down to 118 pounds. Given recurrent syncope she has been admitted and cardiology consulted for evaluation. She
reports no dizziness/lightheadedness while resting on stretcher.
Progress Note - Sleep Tech
Subjective
Date of Service: September 23, 2024
She denies chest pain and palpitations.
Objective
Labs:
09/23/24 06:20
09/23/24 06:20
Labs
Hgb 10.7 g/dL (12.0-16.0) L 09/23/24 06:20
Hct 32.8 % (37.0-47.0) L 09/23/24 06:20
Plt Count 94 10^3/uL (130-400) L D 09/23/24 06:20
Sodium 136 mmol/L (135-145) 09/23/24 06:20
Potassium 4.0 mmol/L (3.5-5.1) 09/23/24 06:20
BUN 17 mg/dl (7-17) 09/23/24 06:20
Creatinine 0.9 mg/dL (0.6-1.0) 09/23/24 06:20
Glucose 85 mg/dl (70-99) 09/23/24 06:20
Vital Signs and I&O:
Vital Signs
Temp Pulse Resp BP Pulse Ox
98.6 F 77 18 127/70 95
09/23/24 11:50 09/23/24 12:38 09/23/24 12:03 09/23/24 12:38 09/23/24 12:03
Vital Signs
Temp Pulse Resp BP Pulse Ox
98.6 F 77 18 127/70 95
09/23/24 11:50 09/23/24 12:38 09/23/24 12:03 09/23/24 12:38 09/23/24 12:03
Intake & Output
09/21/24 09/22/24 09/23/24 09/24/24
06:59 06:59 06:59 06:59
Intake Total 720 / 720 820 / 820 860 / 860 780 / 780
Balance 720 / 720 820 / 820 860 / 860 780 / 780
Physical Exam
Physical Exam
General: Well developed, well nourished in NAD.
Heart: Irregularly irregular
Lungs: Coarse anterior breath sounds
Extremities: No clubbing, cyanosis or edema bilaterally.
Neuro: Grossly nonfocal, awake, alert and oriented x3.
[2024-09-24 06:00] VITALS: BMI 19.6
[2024-09-24 07:45] VITALS: BP 150/71
[2024-09-24 07:48] LABS: Blood Urea Nitrogen 13 mg/dl (7-17); Calcium 8.4 mg/dl (8.4-10.2); Carbon Dioxide 25 mmol/L (22-30); Chloride 104 mmol/L (98-107); Estimated Creatinine Clearance 46 ml/min; Glucose 83 mg/dl (70-99); Sodium 135 mmol/L (135-145); eGFR > 60.00
[2024-09-24] MEDS: ELIQUIS 2.5 MG PO ×2 (09:31→20:00)
[2024-09-24] MEDS: MUCINEX 600 MG PO ×2 (09:32→20:00)
[2024-09-24] MEDS: LIPITOR 40 MG PO (09:32)
[2024-09-24] MEDS: VITAMIN D3 (cholecalciferol) 50 MCG PO (09:32)
[2024-09-24] MEDS: COREG 3.125 MG PO ×2 (09:32→20:00)
--- NOTE | 2024-09-24 10:03 | W.PN.HOSP.TC ---
Today's Communication/Plan
-
Check orthostatic. Discharge planning
Assessment / Plan
Assessment / Plan
Physical exam:
General: Well Developed, Well Nourished and No Apparent Distress
HEENT: Normocephalic, Atraumatic and Moist Mucous Membranes
Respiratory: Decreased breath sounds bilateral. Clear to Auscultation; Negative Wheezes, Rales or Rhonchi
Cardiac: Regular Rhythm and S1/S2
GI: Soft, Nontender and Nondistended
Musculoskeletal: No Clubbing, No Cyanosis and No Edema
Neuro: Awake, Alert and Oriented, no neurological deficits appreciated
Psych: Calm
A/P:
Syncope:
Hypotension related and orthostatic
Monitor
Cont holding diuretics
Discontinued Aldactone
Cont holding losartan
Only on beta-blockers at this point--> Per cardiology monitoring heart rate carefully while on beta-may and considering decreasing beta-blockers doses and recommended to consider outpatient low-dose diuretic upon discharge.
Cardiology consult and follow-up appreciated
PT OT recommends skilled rehab
Discussed with son again on 09/23 at bedside
Medically ready for discharge.
feed mill manager for discharge disposition
COPD and recent Pseudomonas pneumonia:
No signs of exacerbation
Continue outpatient treatment
Check for home oxygen needs
Hyponatremia:
Mild and improving
No need for further workup for now
Monitor trend
Hypokalemia:
Due to diuretics
Replete and trend
CKD:
Mild worsening from baseline and then stabilized
Holding diuretic
Paroxysmal Atrial Fibrillation
-Continue Eliquis for anticoagulation
-Continue Coreg for rate control
Chronic HFrEF
-Holding Lasix and Spironolactone
-Monitor Is&Os and Daily Weights
Essential Hypertension
-Continue Coreg with holding parameters
-Holding losartan
Hyperlipidemia
-Continue atorvastatin
DVT proph: Eliquis
Code Status: Full Code
Anticipated Discharge: Within 24 hours
Subjective/Interval History
-
Date of Service: September 24, 2024
Feels better overall. Blood pressure improved but orthostatic have not been checked and I asked RN to recheck. Afebrile.
Objective Data
-
Labs:
Laboratory Results
09/24/24
05:29
Sodium 135
Potassium 4.0
Chloride 104
Carbon Dioxide 25
BUN 13
Creatinine 0.8
Glucose 83
Calcium 8.4
Vital Signs:
Vital Signs
Temp Pulse Resp BP Pulse Ox
97.7 F 80 18 150/71 95
09/24/24 07:45 09/24/24 09:32 09/24/24 07:45 09/24/24 09:32 09/24/24 07:45
I&O
09/23/24 09/24/24 09/25/24
06:59 06:59 06:59
Intake Total 860 / 860 1200 / 1200
Balance 860 / 860 1200 / 1200
[2024-09-24 11:15] VITALS: BP 104/58
[2024-09-24 12:19] VITALS: BP 101/59; BP 103/61; BP 117/56; PULSE 70; PULSE 71; PULSE 90
[2024-09-24] MEDS: SPIRIVA RESPIMAT 2.5 MCG 2 PUFF INH (14:30)
[2024-09-24] MEDS: STRIVERDI RESPIMAT 2 PUFF INH (14:30)
[2024-09-24 15:25] VITALS: BP 113/50
[2024-09-24 23:52] VITALS: BP 124/60
[2024-09-25] VITALS (8 sets, daily range): BP systolic 104–136; BP diastolic 56–77; PULSE 63–97; O2SAT 95; BMI 19.5
[2024-09-25] MEDS: VITAMIN D3 (cholecalciferol) 50 MCG PO (08:55)
[2024-09-25] MEDS: MUCINEX 600 MG PO ×2 (08:55→20:28)
[2024-09-25] MEDS: ELIQUIS 2.5 MG PO ×2 (08:55→20:28)
[2024-09-25] MEDS: LIPITOR 40 MG PO (08:55)
[2024-09-25] MEDS: COREG 3.125 MG PO ×2 (08:55→20:28)
--- NOTE | 2024-09-25 09:50 | W.PN.HOSP.TC ---
Today's Communication/Plan
-
dc planning
Assessment / Plan
Assessment / Plan
Physical exam:
General: Well Developed, Well Nourished and No Apparent Distress
HEENT: Normocephalic, Atraumatic and Moist Mucous Membranes
Respiratory: Decreased breath sounds bilateral. Clear to Auscultation; Negative Wheezes, Rales or Rhonchi
Cardiac: Regular Rhythm and S1/S2
GI: Soft, Nontender and Nondistended
Musculoskeletal: No Clubbing, No Cyanosis and No Edema
Neuro: Awake, Alert and Oriented, no neurological deficits appreciated
Psych: Calm
A/P:
Syncope:
Hypotension related and orthostatic
Monitor
Cont holding diuretics
Discontinued Aldactone
Cont holding losartan
Only on beta-blockers at this point--> Per cardiology monitoring heart rate carefully while on beta-may and considering decreasing beta-blockers doses and recommended to consider outpatient low-dose diuretic upon discharge.
Cardiology consult and follow-up appreciated
PT OT recommends skilled rehab
Discussed with son again on 09/23 at bedside
Medically ready for discharge.
lead case manager for discharge disposition
COPD and recent Pseudomonas pneumonia:
No signs of exacerbation
Continue outpatient treatment
No hypoxia.
Hyponatremia:
Mild and improving
No need for further workup for now
Monitored
No confusion
Hypokalemia:
Replaced.
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
seem to stabilize.
No flank pain or hematuria.
Permanent Atrial Fibrillation/ Chronic LBBB
-Continue Eliquis for anticoagulation
-Continue Coreg for rate control
Chronic HFrEF
-Holding Lasix and Spironolactone. Per cardiology: On discharge with start Lasix 20 mg daily
-Monitored Is&Os and Daily Weights
Essential Hypertension
-Continue Coreg with holding parameters
- Stopped losartan due to orthostatic hypotension
Hyperlipidemia
-Continue atorvastatin
History of Graves' disease
DVT proph: Eliquis
Code Status: Full Code
Total time spent to see the patient, examine the patient, review data and lab results, discuss treatment plan with patient, manager rn case and nursing staff around 55 minutes
Anticipated Discharge: Today
Subjective/Interval History
-
Date of Service: September 25, 2024
No chest pain
No sob
Objective Data
-
Vital Signs:
Vital Signs
Temp Pulse Resp BP Pulse Ox
98.0 F 77 16 131/71 93
09/25/24 07:45 09/25/24 08:55 09/25/24 07:45 09/25/24 08:55 09/25/24 07:45
I&O
09/24/24 09/25/24 09/26/24
06:59 06:59 06:59
Intake Total 1200 / 1200 1080 / 1080
Balance 1200 / 1200 1080 / 1080
[2024-09-25] MEDS: SPIRIVA RESPIMAT 2.5 MCG 2 PUFF INH (11:32)
[2024-09-25] MEDS: STRIVERDI RESPIMAT 2 PUFF INH (11:33)
--- NOTE | 2024-09-25 15:47 | CM ---
CM reviewed pt with Dr. Painter- ready for dc
No accepting bed at this time
[facility] full and [facility] referral still pending
Bedside meeting with pt- she declined further bed search
Wants to go home with VN noting her can help her
Call with son who noted he works FT and not available to assist
He will speak with pt about the need for SNF
Bed search expanded and add'l referrals sent via [facility]
Pt will require [employer] auth
Discharge Disposition- SNF pending auth
[2024-09-26 06:00] VITALS: BMI 19.6
[2024-09-26] MEDS: LIPITOR 40 MG PO (08:38)
[2024-09-26] MEDS: COREG 3.125 MG PO ×2 (08:38→20:40)
[2024-09-26] MEDS: ELIQUIS 2.5 MG PO ×2 (08:38→20:40)
[2024-09-26] MEDS: MUCINEX 600 MG PO ×2 (08:38→20:40)
[2024-09-26 08:39] VITALS: BP 136/69
[2024-09-26] MEDS: VITAMIN D3 (cholecalciferol) 50 MCG PO (08:39)
[2024-09-26] MEDS: SPIRIVA RESPIMAT 2.5 MCG 2 PUFF INH (11:05)
[2024-09-26] MEDS: STRIVERDI RESPIMAT 2 PUFF INH (11:05)
--- NOTE | 2024-09-26 11:37 | W.PN.HOSP.TC ---
Today's Communication/Plan
-
dc
Assessment / Plan
Assessment / Plan
Physical exam:
General: Well Developed, Well Nourished and No Apparent Distress
HEENT: Normocephalic, Atraumatic and Moist Mucous Membranes
Respiratory: Decreased breath sounds bilateral. Clear to Auscultation; Negative Wheezes, Rales or Rhonchi
Cardiac: Regular Rhythm and S1/S2
GI: Soft, Nontender and Nondistended
Musculoskeletal: No Clubbing, No Cyanosis and No Edema
Neuro: Awake, Alert and Oriented, no neurological deficits appreciated
Psych: Calm
A/P:
Syncope:
Hypotension related and orthostatic
Monitor
Cont holding diuretics
Discontinued Aldactone
Cont holding losartan
Only on beta-blockers at this point--> Per cardiology monitoring heart rate carefully while on beta-may and considering decreasing beta-blockers doses and recommended to consider outpatient low-dose diuretic upon discharge.
Cardiology consult and follow-up appreciated
PT OT recommends skilled rehab
Discussed with son again on 09/23 at bedside
Medically ready for discharge.
therapeutic case manager for discharge disposition
COPD and recent Pseudomonas pneumonia:
No signs of exacerbation
Continue outpatient treatment
No hypoxia.
Hyponatremia:
Mild and improving
No need for further workup for now
Monitored
No confusion
Hypokalemia:
Replaced.
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
seem to stabilize.
No flank pain or hematuria.
Permanent Atrial Fibrillation/ Chronic LBBB
-Continue Eliquis for anticoagulation
-Continue Coreg for rate control
Chronic HFrEF
-Holding Lasix and Spironolactone. Per cardiology: On discharge with start Lasix 20 mg daily
-Monitored Is&Os and Daily Weights
Essential Hypertension
-Continue Coreg with holding parameters
- Stopped losartan due to orthostatic hypotension
Hyperlipidemia
-Continue atorvastatin
History of Graves' disease
DVT proph: Eliquis
Code Status: Full Code
Total time spent to see the patient, examine the patient, review data and lab results, discuss treatment plan with patient, field nurse case manager and nursing staff around 45 minutes
Anticipated Discharge: Today
Subjective/Interval History
-
Date of Service: September 26, 2024
No chets pain
Objective Data
-
Vital Signs:
Vital Signs
Temp Pulse Resp BP Pulse Ox
97.8 F 80 18 136/69 96
09/26/24 08:39 09/26/24 11:07 09/26/24 11:07 09/26/24 08:39 09/26/24 11:07
I&O
09/25/24 09/26/24 09/27/24
06:59 06:59 06:59
Intake Total 1080 / 1080 480 / 480
Balance 1080 / 1080 480 / 480
--- NOTE | 2024-09-26 12:46 | CM ---
Addendum entered by Hayde Lock 09/26/24 15:03:
Availability at facilities has changed; no beds available at [facility]; waiting for updated responses from [facility].
Pt and son updated. CM to follow up tomorrow for transfer to SNF. Will need [employer] authorization once bed is found.
Original Note:
CM following to coordinate transfer to SNF; bed availability at [facility]; no beds available today at [facility].
CM to meet with patient and son today at 1pm to discuss.
[2024-09-26 15:53] VITALS: BP 137/77
[2024-09-26 23:33] VITALS: BP 132/61
[2024-09-27 06:00] VITALS: BMI 19.3
[2024-09-27 09:10] VITALS: BP 122/75
[2024-09-27 09:30] VITALS: BP 105/64; O2SAT 94
[2024-09-27] MEDS: LIPITOR 40 MG PO (09:37)
[2024-09-27] MEDS: MUCINEX 600 MG PO ×2 (09:37→20:04)
[2024-09-27] MEDS: ELIQUIS 2.5 MG PO ×2 (09:38→20:04)
[2024-09-27] MEDS: COREG 3.125 MG PO ×2 (09:38→20:04)
[2024-09-27] MEDS: VITAMIN D3 (cholecalciferol) 50 MCG PO (09:38)
[2024-09-27] MEDS: SPIRIVA RESPIMAT 2.5 MCG 2 PUFF INH (11:33)
[2024-09-27] MEDS: STRIVERDI RESPIMAT 2 PUFF INH (11:33)
--- NOTE | 2024-09-27 14:17 | CM ---
Addendum entered by Hayde Lock 09/27/24 16:44:
t SNF authorization is still pending. VM left for her son to make him aware. CM to follow up in AM.
Original Note:
CM continues to follow for [facility] and request for SNF authorization submitted this AM to [facility]. Authorization is still pending.
CM notified this afternoon that [facility] bed is not currently available; pt who was to be discharged is not leaving today. No additional facilities have available beds today.
I spoke with Earnestine's son to make them aware of delay in discharge.
Plan: CM will continue to follow; will coordinate w/c van transport for transfer to SNF once available bed is found. [facility] authorization may need to be resubmitted if facility changes.
[2024-09-27 14:57] VITALS: BP 131/69; PULSE 86
[2024-09-27 16:05] VITALS: BP 124/70
[2024-09-27 23:29] VITALS: BP 113/53
[2024-09-28 05:15] VITALS: BMI 19.4
[2024-09-28 07:18] VITALS: BP 152/69
[2024-09-28 07:20] VITALS: BP 139/85; BP 152/69; BP 154/82; PULSE 73; PULSE 77; PULSE 85
[2024-09-28] MEDS: COREG 3.125 MG PO (08:09)
[2024-09-28] MEDS: VITAMIN D3 (cholecalciferol) 50 MCG PO (08:09)
[2024-09-28] MEDS: LIPITOR 40 MG PO (08:09)
[2024-09-28] MEDS: ELIQUIS 2.5 MG PO (08:09)
[2024-09-28] MEDS: MUCINEX 600 MG PO (08:09)
--- NOTE | 2024-09-28 09:30 | CM ---
Addendum entered by Hayde Lock 09/28/24 11:37:
W/C van transport arranged for discharge to [facility]. CM called and discussed with pt's son who will call to pay for w/c van transport.
Original Note:
Call received from Brittanie Bravo Reviewer (phone number [phone]; fax number [phone]). She provided [facility] Level 1 approval #[id number] for Earnestine to go to [facility] today. Next review date to Shel[facility] to be done by [facility] on
October 03.
W/C van transport requested. Son will call to pay transport cost once arranged.
Plan: Transfer to [facility] today via w/c van.
[facility] Report:[phone]
[facility]
--- NOTE | 2024-09-28 13:09 | W.PN.HOSP.TC ---
Today's Communication/Plan
-
Note of 09/27/24
DC when bed is available
Assessment / Plan
Assessment / Plan
Physical exam:
General: Well Developed, Well Nourished and No Apparent Distress
HEENT: Normocephalic, Atraumatic and Moist Mucous Membranes
Respiratory: Decreased breath sounds bilateral. Clear to Auscultation; Negative Wheezes, Rales or Rhonchi
Cardiac: Regular Rhythm and S1/S2
GI: Soft, Nontender and Nondistended
Musculoskeletal: No Clubbing, No Cyanosis and No Edema
Neuro: Awake, Alert and Oriented, no neurological deficits appreciated
Psych: Calm
A/P:
Syncope:
Hypotension related and orthostatic
Monitor
Cont holding diuretics
Discontinued Aldactone
Cont holding losartan
Only on beta-blockers at this point--> Per cardiology monitoring heart rate carefully while on beta-may and considering decreasing beta-blockers doses and recommended to consider outpatient low-dose diuretic upon discharge.
Cardiology consult and follow-up appreciated
PT OT recommends skilled rehab
Discussed with son again on 09/23 at bedside
Medically ready for discharge.
manager assurance for discharge disposition
COPD and recent Pseudomonas pneumonia:
No signs of exacerbation
Continue outpatient treatment
No hypoxia.
Hyponatremia:
Mild and improving
No need for further workup for now
Monitored
No confusion
Hypokalemia:
Replaced.
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
seem to stabilize.
No flank pain or hematuria.
Permanent Atrial Fibrillation/ Chronic LBBB
-Continue Eliquis for anticoagulation
-Continue Coreg for rate control
Chronic HFrEF
-Holding Lasix and Spironolactone. Per cardiology: On discharge with start Lasix 20 mg daily
-Monitored Is&Os and Daily Weights
Essential Hypertension
-Continue Coreg with holding parameters
- Stopped losartan due to orthostatic hypotension
Hyperlipidemia
-Continue atorvastatin
History of Graves' disease
DVT proph: Eliquis
Code Status: Full Code
Total time spent to see the patient, examine the patient, review data and lab results, discuss treatment plan with patient, case packer and sealer and nursing staff around 45 minutes
Anticipated Discharge: Today
Subjective/Interval History
-
Date of Service: September 27, 2024
Objective Data
-
Vital Signs:
Vital Signs
Temp Pulse Resp BP Pulse Ox
98.2 F 73 18 152/69 94
09/28/24 07:18 09/28/24 07:18 09/28/24 07:18 09/28/24 07:18 09/28/24 08:20
I&O
09/27/24 09/28/24 09/29/24
06:59 06:59 06:59
Intake Total 720 / 720 720 / 720
Balance 720 / 720 720 / 720
--- NOTE | 2024-09-28 13:10 | W.DCSUMMARY ---
Discharge Summary
Discharge Data
Date of Admission: 09/18/24
Date of Discharge: 09/28/24
-
Pending Results: No
Hospital Course
83 years old female who was admitted to the hospital for syncopal episode. Episode was witnessed by visiting nurse. No seizure activity. Patient had history of hypotension and lightheadedness during previous hospitalization. Patient was
monitored on telemetry. Patient was evaluated by shot dropper. Blood pressure medications including Lasix, Aldactone and losartan were held. She had mild hypokalemia that was replaced. Cardiology recommended to continue with carvedilol and to
continue with low-dose Lasix. Patient did not have hypoxia or chest pain. Patient was evaluated by physical therapy and recommended [facility] facility placement. She did not have recurrent syncopal episodes. Patient was evaluated by case
strategic partner development manager. Patient was discharged to [facility] facility in a stable condition.
Physical exam:
General: Well Developed, Well Nourished and No Apparent Distress
HEENT: Normocephalic, Atraumatic and Moist Mucous Membranes
Respiratory: Decreased breath sounds bilateral. Clear to Auscultation; Negative Wheezes, Rales or Rhonchi
Cardiac: Regular Rhythm and S1/S2
GI: Soft, Nontender and Nondistended
Musculoskeletal: No Clubbing, No Cyanosis and No Edema
Neuro: Awake, Alert and Oriented, no neurological deficits appreciated
Psych: Calm
Total discharge time spent to see the patient, examine the patient, review data and lab results, discuss discharge plan with patient, case folder and nursing staff around 65 minutes
Discharge Plan
-
Patient Disposition: Halfway/SNF
Discharge Diagnosis/Procedures: Syncopal episode
Orthostatic hypotension, stopped losartan and Aldactone.
Chronic HFrEF. Call cardiology if she gains 3 pounds in 1 day or 5 pounds in 1 week.
CAD
COPD
Chronic kidney disease stage II-IIIa
Permanent atrial fibrillation/chronic left bundle branch block, on Eliquis treatment.
Hyperlipidemia
Diet: As tolerated and 2 Gram Sodium
Referrals:
Joseline Ambrosio PA-C [Specified Professional Personl] - 10/17/24 12:40 pm (You have cardiology follow-up with Joseline Ambrosio PA-C on October 17 at 12:40 PM in [address] [facility]. If you are unable to make this appointment please call [phone]
to reschedule)
Diana Bone MD [Family Provider] -
Prescriptions:
New
acetaminophen 325 mg Tablet
650 mg PO Q4HPRN PRN (Reason: mild pain/COPE/temp> 100.4F) Qty: 10 0RF
polyethylene glycol 3350 17 gram Powder In Packet
17 g PO DAILYPRN PRN (Reason: constipation) Qty: 10 0RF
Continued
alendronate 70 MG tablet
70 mg PO SA
cholecalciferol (vitamin D3) 50 mcg (2,000 unit) Tablet
50 mcg PO DAILY
atorvastatin 40 MG tablet
40 mg PO DAILY
furosemide 40 mg Tablet
20 mg PO QPM
carvedilol 3.125 mg Tablet
3.125 mg PO BID
albuterol sulfate 90 mcg/actuation Hfa Aerosol Inhaler
2 inh INHALATION R QIDPRN PRN (Reason: sob)
Anoro Ellipta 62.5-25 mcg/actuation Blister With Device
1 inh INHALATION R DAILY@1300
Eliquis 2.5 mg tablet
2.5 mg PO BID
Discontinued
losartan 50 mg tablet
50 mg PO HS
acetaminophen 650 mg Tablet Extended Release
1,300 mg PO BID
spironolactone 25 mg Tablet
12.5 mg PO DAILY
furosemide [Lasix] 40 mg tablet
40 mg PO DAILY
prednisone 10 mg tablet
See Rx Instructions .ROUTE .COMPLEX
Rx Instructions:
Take By Mouth:
40 mg daily x3 days, 30 mg daily x3 days,
20 mg daily x3 days, 10 mg daily x3 days.
levofloxacin 750 mg tablet
750 mg PO DAILY
Patient Comments:
start on 09/10/24 for 10 days
Discharge Orders:
Discharge Patient (As Directed); Ordered 09/28/24
Ordered By: Cindy Painter
Discharge Date and Time
Print Language: SOUTH AFRICAN
[2024-09-28 13:26] VITALS: BP 146/96
== END 2024-09-28 14:01 ==
LOC: 4 EAST ACU 12:20
PROVIDERS: ADMITTING PHYSICIAN Hospitalist; ATTENDING PHYSICIAN Internal Medicine; CONSULT PHYSICIAN Nuclear Medicine Nuclear Cardiology; EMERGENCY PHYSICIAN Student in an Organized Health Care Education/Training Program; FAMILY PHYSICIAN Emergency Medicine
DX: I95.1 Orthostatic hypotension (principal); I49.8 Other specified cardiac arrhythmias; I48.21 Permanent atrial fibrillation; E87.1 Hypo-osmolality and hyponatremia; I25.10 Atherosclerotic heart disease of native coronary artery without angina pectoris; J44.9 Chronic obstructive pulmonary disease, unspecified; I08.0 Rheumatic disorders of both mitral and aortic valves; I13.0 Hypertensive heart and chronic kidney disease with heart failure and stage 1 through stage 4 chronic kidney disease, or unspecified chronic kidney disease; N18.2 Chronic kidney disease, stage 2 (mild); I50.22 Chronic systolic (congestive) heart failure; E78.00 Pure hypercholesterolemia, unspecified; E03.9 Hypothyroidism, unspecified; K21.9 Gastro-esophageal reflux disease without esophagitis; G62.9 Polyneuropathy, unspecified; M19.90 Unspecified osteoarthritis, unspecified site; F32.A Depression, unspecified; H54.7 Unspecified visual loss; I25.5 Ischemic cardiomyopathy; I44.7 Left bundle-branch block, unspecified; E05.00 Thyrotoxicosis with diffuse goiter without thyrotoxic crisis or storm; E87.6 Hypokalemia; W19.XXXA Unspecified fall, initial encounter; Y93.9 Activity, unspecified; Y92.009 Unspecified place in unspecified non-institutional (private) residence as the place of occurrence of the external cause; I25.2 Old myocardial infarction; Z60.2 Problems related to living alone; Z87.891 Personal history of nicotine dependence; Z95.5 Presence of coronary angioplasty implant and graft; Z86.718 Personal history of other venous thrombosis and embolism; Z79.01 Long term (current) use of anticoagulants; Z87.01 Personal history of pneumonia (recurrent); Z79.51 Long term (current) use of inhaled steroids
CPT/HCPCS: 80048; 80053; 82962; 83735; 85025; 85027; 93005; 94640; 97112; 97116; 97163; 97167; 97530; 97535; 99285; G0378

== ENCOUNTER → 2024-11-03 14:05 | Outpatient (REF) | payer MEDICARE, SELFPAY | LOC: RAD 14:05 | PROVIDERS: ATTENDING PHYSICIAN Emergency Medicine | DX: M25.512 Pain in left shoulder (principal) | CPT/HCPCS: 73030 ==

== ENCOUNTER → 2024-12-14 09:47 | Outpatient (REF) | payer MEDICARE, SELFPAY | LOC: HWRAD 09:47 | PROVIDERS: ATTENDING PHYSICIAN Internal Medicine Critical Care Medicine; FAMILY PHYSICIAN Emergency Medicine | DX: A31.0 Pulmonary mycobacterial infection (principal); R91.8 Other nonspecific abnormal finding of lung field | CPT/HCPCS: 71250 ==

== ENCOUNTER → 2025-02-09 16:06 | Outpatient (REF) | payer MEDICARE, SELFPAY | LOC: REG 16:06 | PROVIDERS: ATTENDING PHYSICIAN Internal Medicine Critical Care Medicine; FAMILY PHYSICIAN Emergency Medicine | DX: A31.0 Pulmonary mycobacterial infection (principal); J47.9 Bronchiectasis, uncomplicated | CPT/HCPCS: 87070; 87077; 87116; 87185; 87205 ==

== ENCOUNTER → 2025-04-27 09:28 | Outpatient (REF) | payer MEDICARE, SELFPAY | LOC: HWRAD 09:28 | PROVIDERS: ATTENDING PHYSICIAN Internal Medicine Critical Care Medicine; FAMILY PHYSICIAN Emergency Medicine | DX: A31.0 Pulmonary mycobacterial infection (principal); R91.8 Other nonspecific abnormal finding of lung field | CPT/HCPCS: 71250 ==

== ENCOUNTER 2025-08-13 22:14 | Inpatient (IN) | payer MEDICARE, SELFPAY ==
[2025-08-13 18:54] VITALS: BP 139/98; BMI 19.4
--- NOTE | 2025-08-13 19:19 | ED.GENMED ---
History of Present Illness
General
Chief Complaint: Weakness
Time Seen by Provider: 08/13/25 19:03
History of Present Illness
History of Present Illness:
85-year-old female with history of COPD, Mycobacterium avium, A-fib, hypertension, hyperlipidemia, CHF, and CAD presents to the emergency department for evaluation of general malaise and weakness. According to her son she has been gradually
declining over the past month but beginning 3 days ago she stopped eating. Son and his brother check in on her mother frequently did not hear for her from for several hours today prompting her them to visit her home at which time she was found to
be laying on the ground and profoundly weak. For EMS she was noted to be saturating in the 70s on room air. Although she has COPD she is not on chronic oxygen. Patient can provide no history at this time secondary to cognitive dysfunction. Noted
to be febrile on arrival
Past History
Past History
ED Past Medical History: Arrthythmia (permanent afib), CAD, CHF, COPD, GERD, HTN, Hypercholesterolemia, Renal failure, Valvular disease (aortic stenosis), Hypothyroidism, Other (Nasal polyps, sinusitis, ischemic colitis, DVT) and Other (Chronic
bronchitis, ex-smoker, stress incontinence, arthritis, impaired vision, depression, deviated septum, fluid retention, history of neuropathy)
ED Past Surgical History: Cardiac (stent) and Other (deviated septum 2005)
Patient has exhibited threatening behavior?: No
Social History
Tobacco: Former smoker
Alcohol: None
Drug: None
Personal:
Living: alone
Employment: Retired
Review of Systems
Review of Systems
Allergies reviewed?: Yes
All Other Systems: ROS reviewed and negative except as documented in HPI and ROS
Phy Exam
Physical Exam
Physical Exam:
GEN: Ill-appearing, acute respiratory distress, cachectic
HEENT: Oral mucosa moist, no scleral icterus
Cardiac: Tachycardic irregular
Lung: Tachypneic with accessory muscle use, globally clear lungs
MSK: No gross deformity or injuries, no lower extremity edema
Skin: Good color, no pallor or jaundice, no rashes
Neuro: alert and oriented x 2
Psych: Calm, cooperative
Sepsis
Sepsis Screening
Sepsis Assessment: Sepsis
Sepsis Screen
Sepsis Screen: Sepsis
Date: 08/13/25
Time: 21:37
Course
Orders/Labs/Results
Orders:
Orders
08/13/25 18:52
Electrocardiogram (*1) Urgent
Reason for Study: Other
Other Reason for Exam: Possible Sepsis
Cardiac Monitoring- Treatment ONCE
EKG- Treatment ONCE
IV Insert/Care/Rem.- Treatment PRN
Straight cath- Treatment ONCE
08/13/25 19:10
Acetaminophen [Tylenol] 1,000 mg PO NOW STA
Lactated Ringers [Lr] 1,000 ml IV BOLUS
CR Chest Portable - 1 View Urgent
Comment:
Reason For Exam: SOB/hypoxia
Reason Study Needs to be Portable: Other
08/13/25 19:28
COVID-19 Antigen Urgent
Source: Nasal Swab
Influenza A+B Rapid Molecular Urgent
NUNO Source: Nasal Swab
Specimen Description:
Date Specimen was Collected: 08/13/25
Time Specimen was Collected: 18:52
08/13/25 19:29
Comprehensive Metabolic Panel Urgent
Creatine Phosphokinase Urgent
Comment: ADD ON
Lactic Acid Q4H
Comment: ON ICE, CANCEL 2ND ORDER IF FIRST LACTIC ACID LEVEL <2
Magnesium Urgent
Troponin I Urgent
08/13/25 19:30
Complete Blood Count/With Diff Urgent
Blood Culture Q20M
NUNO Source: Blood/Venous
Specimen Description:
Comment: Urgent from separate sites. If patient screens positive for possible sepsis
08/13/25 19:39
Urinalysis Reflex To Culture Urgent
Date Specimen was Collected: 12/22/25
Time Specimen was Collected: 18:52
Urine Microscopic Reflex Cult Urgent
Urine Culture Urgent
NUNO Source: U
Specimen Description:
Date Specimen was Collected: 08/13/25
Time Specimen was Collected: 18:52
08/13/25 20:07
Add On- LAB Urgent
Tests Added?: CPK
08/13/25 21:01
Blood Culture Q20M
NUNO Source: Blood/Venous
Specimen Description:
Comment: Urgent from separate sites. If patient screens positive for possible sepsis
Abnormal Lab Results
08/13/25 08/13/25 08/13/25
19:29 19:30 19:39
WBC 12.8 H 10^3/uL
(4.8-10.8)
MCHC 32.5 L g/dL
(33.0-37.0)
MPV 10.6 H fL
(7.4-10.4)
Abs Immat Gran (auto) 0.1 H 10^3/uL
(0-0.05)
Absolute Neuts (auto) 10.8 H 10^3/uL
(1.4-6.5)
Absolute Lymphs (auto) 0.7 L 10^3/uL
(1.2-3.4)
Absolute Monos (auto) 1.2 H 10^3/uL
(0.1-0.6)
Neutrophils % 84.3 H %
(42.2-75.2)
Lymphocytes % 5.7 L %
(20.5-51.1)
Sodium 132 L mmol/L
(135-145)
Carbon Dioxide 19 L mmol/L
(22-30)
BUN 42 H mg/dl
(7-17)
Creatinine 1.7 H mg/dL
(0.6-1.0)
Glucose 104 H mg/dl
(70-99)
Magnesium 2.5 H mg/dl
(1.6-2.3)
Creatine Kinase 419 H U/L
(30-135)
Troponin I 0.153 H* ng/ml
Urine Ketones 1+ A
(Negative)
Ur Occult Blood Reflex 4+ A
(Negative)
Leukocyte Esterase Rfl 3+ A
(Negative)
Urine WBC (Reflex) >100 A /HPF
(0-5)
Urine Bacteria (Reflex) Many A
(Negative)
Urine Albumin (Reflex) 3+ A
(Neg - Trace)
08/13/25 19:30
08/13/25 19:29
Vital Signs
Initial and Last Documented VS:
Initial Vital Signs
Temp Pulse Resp BP Pulse Ox
101.8 F H 125 23 139/98 92
08/13/25 18:54 08/13/25 18:54 08/13/25 18:54 08/13/25 18:54 08/13/25 18:54
Last Documented Vital Signs
Temp Pulse Resp BP Pulse Ox
98.8 F 90 22 133/54 99
08/13/25 20:55 08/13/25 21:00 08/13/25 21:00 08/13/25 20:00 08/13/25 21:00
MDM/Problems Addressed
MDM/Problems Addressed:
Patient is acutely ill, at this time etiology is not clear although UTI is suspected. She is febrile increasing chances for infectious etiology. Chest x-ray negative for infiltrate however given her hypoxemia I suspect pneumonia is likely. Given
her complex history with MAC and COPD will treat with broad-spectrum IV antibiotics, at this time steroids are not felt to be indicated given her lack of wheezing. Will be admitted to the hospitalist service
Comment
Comment:
EKG independently interpreted by me shows a rapid atrial fibrillation at a rate of 110 with no ischemic changes
*Pulse Oximetry
SaO2: 92
Nasal Cannula flow liters per minute: 6
Patient hypoxic: yes
*Critical Care Note
Total Time (30-74mins, 75-104mins- exclusive of procedures): Not Applicable
ED Attending Note
-
Portions of this chart may have been created with voice recognition software.� Occasional wrong word or��sound alike� substitutions may have occurred due to the inherent limitations of voice recognition software.
Discharge Plan
Departure
Patient Disposition: Admit
Date of Disposition: 08/13/25
Time of Disposition: 20:39
Admit to: Med/Surg
Presentation/result/management discussed w/ accepting MD/DO: Hospitalist
Discharge Problem:
Sepsis, Elevated troponin, Pneumonia
Prescriptions:
No Action
alendronate 70 MG tablet
70 mg PO SA
cholecalciferol (vitamin D3) 50 mcg (2,000 unit) Tablet
50 mcg PO DAILY
atorvastatin 40 MG tablet
40 mg PO DAILY
furosemide 40 mg Tablet
20 mg PO QPM
carvedilol 3.125 mg Tablet
3.125 mg PO BID
albuterol sulfate 90 mcg/actuation Hfa Aerosol Inhaler
2 inh INHALATION R QIDPRN PRN (Reason: sob)
Anoro Ellipta 62.5-25 mcg/actuation Blister With Device
1 inh INHALATION R DAILY@1300
Eliquis 2.5 mg tablet
2.5 mg PO BID
acetaminophen 325 mg Tablet
650 mg PO Q4HPRN PRN (Reason: mild pain/COPE/temp> 100.4F) Qty: 10 0RF
polyethylene glycol 3350 17 gram Powder In Packet
17 g PO DAILYPRN PRN (Reason: constipation) Qty: 10 0RF
Referrals:
Diana Bone MD [Family Provider, Internal Medicine]
Interventions
Interventions:
*General Assessment Last Done: 08/13/25 18:54
*Neglect/Abuse Screening Last Done: 08/13/25 18:54
*ED COVID-19 Vaccine History Last Done: 08/13/25 18:54
*ED Influenza Vaccine History Last Done: 08/13/25 18:54
[facility] Fall Risk Assessment Tool Last Done: 08/13/25 18:54
*Risk Screen - Suicide (C-SSRS) Last Done: 08/13/25 18:54
ED- Cardiac Assessment Last Done: 08/13/25 18:54
ED- Neurological Assessment Last Done: 08/13/25 18:54
ED- Pulmonary Assessment Last Done: 08/13/25 20:01
Discharge Date and Time
Print Language: FRENCH
[2025-08-13 19:37] VITALS: BP 121/83
[2025-08-13] MEDS: LR 1000 IV (19:48)
[2025-08-13] MEDS: TYLENOL 1000 MG PO (19:48)
[2025-08-13 19:50] LABS: Hematocrit 41.9 % (37.0-47.0); Hemoglobin 13.6 g/dL (12.0-16.0); Mean Corp Hgb Conc. 32.5 g/dL (33.0-37.0); Mean Corpuscular Volume 91.5 fL (81.0-99.0); Nucleated Red Blood Cells % 0 %; Platelet Count 207 10^3/uL (130-400); Red Cell Dist. Width 13.1 % (11.5-14.5)
[2025-08-13 19:50] LABS: Urine Character Cloudy (Clear)
[2025-08-13 20:00] VITALS: BP 133/54
[2025-08-13 20:00] LABS: COVID-19 Antigen Negative (Negative)
[2025-08-13 20:03] LABS: ALT (SGPT) 14 U/L (0-35); AST (SGOT) 32 U/L (14-36); Albumin 3.9 g/dl (3.5-5.0); Alkaline Phosphatase 97 U/L (38-126); Blood Urea Nitrogen 42 mg/dl (7-17); Calcium 9.2 mg/dl (8.4-10.2); Carbon Dioxide 19 mmol/L (22-30); Chloride 100 mmol/L (98-107); Estimated Creatinine Clearance 21 ml/min; Glucose 104 mg/dl (70-99); Magnesium 2.5 mg/dl (1.6-2.3); Potassium 4.6 mmol/L (3.5-5.1); Sodium 132 mmol/L (135-145); Total Protein 7.4 g/dl (6.3-8.2); eGFR 29.39
[2025-08-13 20:09] LABS: Troponin I 0.153 ng/ml
[2025-08-13 21:12] LABS: Urine White Cell >100 /HPF (0-5)
--- NOTE | 2025-08-13 21:32 | HPS.HSE ---
Family Physician
-
Family Physician: Diana Bone MD
Chief Complaint
-
Hypoxia and weakness
History of Present Illness
This is a 85-year-old female with past medical history of pulmonary atrial fibrillation, CHF with preserved EF, hypertension and hyperlipidemia as well as history of COPD who presents to the emergency department with weakness after being found down
at home by EMS and was found to be hypoxic.
Patient reports with increasing weakness over the last 2 weeks. She has lost her appetite and did not eat anything in the last 2 days. She stated that she is having a cough but denies having fevers or chills. She denies any known sick contacts
and she denies any recent travel. She denies any palpitations. She denies any abdominal symptoms and denies any urinary symptoms. She reports that she just feels weak and on her legs and wants to try to walk up a flight of stairs she missed a
step and slid down therefore EMS was called.
Son reports that she has been declining for at least 2 weeks and possibly more due to decrease in appetite and not ambulating. Patient denies any leg swelling. She denies any calf tenderness. She denies any chest pain pleuritic or otherwise. She
denies having palpitations.
In the Emergency Department patient was febrile to 101 for Tmax, blood pressure was 1 atrial flutter 4 and pulse rate of 90 with oxygen saturation of 99% on supplemental oxygen. Chest x-ray shows multifocal opacities with infectious bronchiolitis
in the right middle lobe as well as lower lobe as well as bilateral lower lobe patchy opacifications. There is cardiomegaly. She had a ECG with atrial fibrillation rate of 110. Troponin was elevated at 0.153. COVID test was negative, flu test
was negative. UA was positive. There was some contamination as well.
White count was 2.8 with otherwise CBC unremarkable. Electrolytes showed a sodium of 132 otherwise unremarkable. BUN and creatinine were elevated with a creatinine of 1.7 up from a baseline of around 0.8 glucose was normal. Lactic acid was normal
at 1.6. LFTs were unremarkable.
Medical History
Past Medical History
Past Medical History: Reports Other
Additional Past Medical History:
Chronic HFrEF
Paroxysmal Atrial Fibrillation
Essential Hypertension
Hyperlipidemia
COPD
Hypothyroidism
Past Surgical History: Reports None
Social History
Tobacco: Former Smoker
Alcohol: None
Drug: None
Family History
Family History: Not pertinent
Allergies / Home Medications
Allergies reflects when Allergies were last updated in [facility].
Home Medications with original date entered in [facility]
Allergy/Medication List:
Allergies
Allergy/AdvReac Type Severity Reaction Status Date / Time
No Known Allergies Allergy Verified 09/18/24 09:54
Home Medications
atorvastatin 40 mg tablet 40 mg PO DAILY High cholesterol 07/13/24
cholecalciferol (vitamin D3) 50 mcg (2,000 unit) tablet 50 mcg PO DAILY Supplement 07/13/24
albuterol sulfate 90 mcg/actuation aerosol inhaler 2 inh inhalation R QIDPRN PRN sob 09/04/24
carvedilol 3.125 mg tablet 3.125 mg PO BID Blood Pressure 09/04/24
furosemide 40 mg tablet 20 mg PO QPM Fluid Retention/Swelling 09/04/24
umeclidinium 62.5 mcg-vilanterol 25 mcg/actuation powdr for inhalation (Anoro Ellipta) 1 inh inhalation R DAILY@1300 Lung/Breathing Issues 09/04/24
apixaban 2.5 mg tablet (Eliquis) 2.5 mg PO BID Blood Clot Prevention/Tx 09/18/24
Review of Systems
-
EENT: Reports No Symptoms
Respiratory: Reports No Symptoms
Cardiac: Reports No Symptoms
Abdomen/GI: Reports No Symptoms
: Reports No Symptoms
Musculoskeletal: Reports No Symptoms
Skin: Reports No Symptoms
Neurological: Reports Weakness
Endocrine: Reports No Symptoms
Hematologic/Lymphatic: Reports No Symptoms
Psych: Reports No Symptoms
Physical Exam
Vital Signs
Vital Signs
Temp Pulse Resp BP Pulse Ox
98.8 F 90 22 133/54 99
08/13/25 20:55 08/13/25 21:00 08/13/25 21:00 08/13/25 20:00 08/13/25 21:00
Physical Exam
General: Comfortable and Conversant
HEENT: Anicteric and Moist mucous membranes; No Oxygen
Respiratory: Rales (Right middle and right basal but otherwise clear) and Non Labored Respirations
Cardiac: S1/S2 and Irregular Rhythm
GI: Soft and Non Tender
Rectal: Deferred by Provider
Musculoskeletal: No Clubbing, No Cyanosis and No Edema
Skin: Warm and Dry
Neuro: AO x 3, Nonfocal/grossly intact and No Sensory Deficits
Psych: Calm
Laboratory Results
-
08/13/25 19:30
08/13/25 19:29
Laboratory Results
Lactic Acid 1.6 mmol/L (0.7-2.0) 08/13/25 19:29
Total Bilirubin 1.3 mg/dl (0.2-1.3) 08/13/25 19:29
AST 32 U/L (14-36) 08/13/25 19:29
ALT 14 U/L (0-35) 08/13/25 19:29
Alkaline Phosphatase 97 U/L (38-126) 08/13/25 19:29
Troponin I 0.153 ng/ml H* 08/13/25 19:29
Data Reviewed
-
Diagnostic Radiology: Image Personally Visualized and interpreted and Report Reviewed by me
Lab Data: Labs Reviewed by me
Old Records: Reviewed
Impression/Plan
-
IMPRESSION:
85-year-old with past medical history significant for atrial fibrillation, CHF with preserved EF, hyperlipidemia, COPD not on home O2 presents to the emergency department with weakness and a fall and was found to be hypoxic with multifocal
infiltrates on x-ray consistent with pneumonia. She did have a fever to 101 arrival in the emergency department. Viral studies were negative. She has not eaten anything in 3 days due to weakness and is dehydrated. She is found to have a troponin
elevation to 0.1. She is currently requiring 2 L supplemental oxygen but has no increased work of breathing. She is not wheezing. She has mild crackles on the right middle and right basal lungs on auscultation.
PLAN:
Community-acquired pneumonia -patient with sepsis with acute kidney failure secondary to pneumonia
-Admit to telemetry
� Continue with IV ceftriaxone and azithromycin
� Check Legionella and pneumococcal or urinary antigen
� Sputum culture if available
� Supplemental oxygen for now
� Incentive spirometry
� Will need PT and case management
� She is dehydrated we will continue gentle hydration overnight
DANAY�suspect secondary to sepsis and likely dehydration as patient has not been eating for last 3 days and poor appetite for several weeks.
� Hold Lasix
� IV fluids as above
� Renal dose medications
� Avoid nephrotoxins
Nonischemic ischemic myocardial injury�troponin 0.1, ECG with atrial fibrillation. Suspect hypoxia induced nonischemic myocardial injury and possibly rapid atrial fibrillation. Rate is currently controlled
� Continue Eliquis
� Trend troponins
� Echocardiogram in the morning
� Cardiology consult
COPD�no wheezing, no increased work of breathing
� Continue Anoro Ellipta
� Continue with nebs every 6 hours
� As needed albuterol
CHF with preserved EF�patient is currently dehydrated, no signs of volume overload
� Hold Lasix
� Gentle hydration overnight for 1 L then stop
� Echo as above
DVT prophylaxis�on apixaban
CODE STATUS�full code, if he has a cardiac arrest that is not secondary to progressive decline in respiratory status. Otherwise if she has primary respiratory failure she does not want to be intubated or resuscitated.
[2025-08-13 22:00] VITALS: BP 100/60
[2025-08-13] MEDS: ZITHROMAX INFUSION 250 IV (22:47)
[2025-08-13] MEDS: STERILE WATER FOR INJECTION 10 ML IV (22:47)
[2025-08-13] MEDS: ROCEPHIN 1000 MG IV (22:47)
--- NOTE | 2025-08-13 23:18 | PTCARENOTE ---
Pt received from ED to [facility]. Pt oriented to room and call matrinez.
[2025-08-13 23:39] VITALS: BP 116/64
[2025-08-13 23:41] VITALS: BMI 18.9
[2025-08-13 23:49] VITALS: BMI 18.9
[2025-08-13] MEDS: NSS 1000 IV (23:57)
[2025-08-14] VITALS (9 sets, daily range): BP systolic 115–142; BP diastolic 58–102; PULSE 67–130; O2SAT 97; BMI 18.9
[2025-08-14 01:59] LABS: Troponin I 0.147 ng/ml
[2025-08-14] MEDS: DUONEB 3 ML INH ×2 (07:44→11:06)
[2025-08-14] MEDS: SPIRIVA RESPIMAT 2.5 MCG 2 PUFF INH (07:44)
[2025-08-14] MEDS: STRIVERDI RESPIMAT 2 PUFF INH (07:44)
--- NOTE | 2025-08-14 08:03 | W.PN.HOSP.TC ---
Today's Communication/Plan
-
Continue antibiotics.
Continue breathing treatment
Assessment / Plan
Assessment / Plan
Impression:
85-year-old with past medical history significant for atrial fibrillation, CHF with preserved EF, hyperlipidemia, COPD not on home O2 presents to the emergency department with weakness and a fall and was found to be hypoxic with multifocal
infiltrates on x-ray consistent with pneumonia. She did have a fever to 101 arrival in the emergency department. Viral studies were negative. She has not eaten anything in 3 days due to weakness and is dehydrated. She is found to have a troponin
elevation to 0.1. She is currently requiring 2 L supplemental oxygen but has no increased work of breathing. She is not wheezing. She has mild crackles on the right middle and right basal lungs on auscultation.
Assessment/plan:
Sepsis with acute organ dysfunction secondary Community-Acquired Pneumonia
Acute organ dysfunction forme of acute Kidney Injury (DANAY)
Admitted to telemetry.
Continue IV ceftriaxone and azithromycin.
Negative Legionella and pneumococcal urinary antigens.
sputum culture if available.
supplemental oxygen as needed, still on 4 L
Encourage incentive spirometry.
Physical therapy and case management consults.
S/p IVF
Acute Kidney Injury
Likely secondary to sepsis and dehydration (patient has poor oral intake for several days).
Held Lasix.
Status post IV fluid
Adjust medications to renal dosing.
Avoid nephrotoxins.
Creatinine improved
Non-Ischemic Myocardial Injury
Troponin: 0.1; ECG shows atrial fibrillation.
Suspect hypoxia-induced myocardial injury and possibly rapid AF; rate currently controlled.
Continue Eliquis.
Trend troponins.
Cardiology consulted.
Echocardiogram shows:
1. Ejection fraction is 30-35% by volumetric assesment.
2. Moderate to severe aortic valve stenosis. Trace aortic regurgitation.
3. Using an left ventricular outflow tract of 2.0 cm., and peak/mean gradient of 43/24, the NATALIA = .6cm2.
4. Moderate to severe mitral valve regurgitation.
5. Mild to moderate tricuspid regurgitation. Estimated pulmonary artery pressure of 48 mmHg assuming a right atrial pressure of 3 mmHg.
6. Compared to a prior transthoracic echocardiogram study from 07/14/2024 Aortic valve gradients have increased from prior peak/mean 29/13 mmHg to now 43/24 mmHg and aortic valve area has decreased to 0.6 cm². Mitral regurgitation has worsened and
is now moderate to severe. Pulmonary artery pressure is now increased to 48 mmHg.
Chronic Obstructive Pulmonary Disease (COPD)
No wheezing or increased work of breathing.
Continue Anoro Ellipta.
Nebulizer treatments every 6 hours.
Albuterol as needed.
Congestive Heart Failure with Preserved EF
Patient is dehydrated; no signs of volume overload.
Hold Lasix.
Gentle hydration overnight (1 L, then stop).
Echocardiogram as above.
Hyponatremia.
Possible secondary to decreased oral intake.
Sodium improved, status post IV fluid.
Continue to monitor
CODE STATUS: Full code
DVT prophylaxis: Eliquis.
Diet: Regular diet
Disposition: Continue antibiotics.
Continue breathing treatment
Total time spent on today's encounter was 55 minutes which included time spent in counseling the patient/family regarding diagnosis and treatment plan as listed above, goals of care, and symptom management. Case was discussed with nursing staff,
specialists, and care coordinators/case management. All labs and imaging personally reviewed by me. Remainder the time spent in detailed review of previous records, lab data, imaging, and other medical provider documentation.
Part of this note was created using voice recognition system. Occasional wrong word or �sound alike� substitutions may have inadvertently occurred due to the inherent limitations of voice recognition software. If noted kindly bring it to my
attention for correction.
Anticipated Discharge: > 48 hours
Subjective/Interval History
-
Date of Service: August 14, 2025
Patient seen and examined at bedside, denies any chest pain , patient still with shortness of breath but slightly improved, no abdominal pain, no nausea, no vomiting, no diarrhea or constipation.
Objective Data
-
Labs:
Laboratory Results
08/13/25 08/14/25
19:29 07:36
WBC Pending
Hgb Pending
Hct Pending
Plt Count Pending
Sodium 132 L Pending
Potassium 4.6 Pending
Chloride 100 Pending
Carbon Dioxide 19 L Pending
BUN 42 H Pending
Creatinine 1.7 H Pending
Glucose 104 H Pending
Calcium 9.2 Pending
Total Bilirubin 1.3
AST 32
ALT 14
Alkaline Phosphatase 97
Vital Signs:
Vital Signs
Temp Pulse Resp BP Pulse Ox
98.1 F 81 18 116/58 99
08/14/25 03:15 08/14/25 03:15 08/14/25 03:15 08/14/25 03:15 08/14/25 03:15
I&O
08/13/25 08/14/25 08/15/25
06:59 06:59 06:59
Intake Total 1000 / 1000
Balance 1000 / 1000
Physical Exam
-
General: Well Developed, Well Nourished, No Apparent Distress and Comfortable
HEENT: Normocephalic, Atraumatic, Moist Mucous Membranes, No Ptosis, PERRLA and Nose Appears Normal
Respiratory: Wheezes, Rhonchi, Crackles and Non Labored Respirations
Cardiac: Regular Rhythm and S1/S2
Breast: Deferred by me
GI: Soft, Nontender, Nondistended and Normal Bowel Sounds
Genito-urinary: No Costovertebral Tender
Musculoskeletal: No Clubbing, No Cyanosis and No Edema
Skin: Warm
Neuro: Awake, Alert, Oriented, AO x 3 and No Motor Deficits
Psych: Calm
Data Reviewed
-
Diagnostic Radiology: Image personally visualized and interpreted and Report Reviewed by me
CT Scan: Image personally visualized and interpreted and Report Reviewed by me
Ultrasound: Image personally visualized and interpreted and Report Reviewed by me
MRI: Image personally visualized and interpreted and Report Reviewed by me
Medical Tests (Nuc Med, Echo etc): Image personally visualized and interpreted and Report Reviewed by me
Labs: Labs Reviewed by me
Old Records: Reviewed
[2025-08-14 08:25] LABS: Blood Urea Nitrogen 39 mg/dl (7-17); Calcium 8.9 mg/dl (8.4-10.2); Carbon Dioxide 21 mmol/L (22-30); Chloride 104 mmol/L (98-107); Estimated Creatinine Clearance 27 ml/min; Glucose 75 mg/dl (70-99); Potassium 4.4 mmol/L (3.5-5.1); Sodium 134 mmol/L (135-145); eGFR 40.55
[2025-08-14 08:34] LABS: Troponin I 0.105 ng/ml
[2025-08-14 08:35] LABS: Hematocrit 37.7 % (37.0-47.0); Hemoglobin 12.1 g/dL (12.0-16.0); Mean Corp Hgb Conc. 32.1 g/dL (33.0-37.0); Mean Corpuscular Volume 92.2 fL (81.0-99.0); Platelet Count 164 10^3/uL (130-400); Red Cell Dist. Width 13.1 % (11.5-14.5)
--- NOTE | 2025-08-14 08:55 | CON.CAR ---
Addendum entered and electronically signed by Donaldo Funes DO 08/14/25 14:50:
I saw and examined the patient.
The Insole Taper's note was reviewed and I agree with the note.
Comment:
Plan:
Very deconditioned now with likely pneumonia/UTI as well as rapid atrial fibrillation, troponin weakness and hypoxia.
Continue rate control of atrial fibrillation. Atrial fibrillation is permanent. Continue Coreg. Heart rate increased likely secondary to septic syndrome.
Heart rate improved
Continue Eliquis for stroke prophylaxis
Continue medical therapy of likely non-DC troponin elevation which is improved
Blood pressure stable
Lasix currently held for acute renal insufficiency, creatinine improving. Continue to monitor volume status closely, would caution the amount of IV fluid hydration given her significant valvular disease and cardiomyopathy.
Echocardiogram with evidence of worsening aortic stenosis and mitral regurgitation. EF remains reduced
She appears very deconditioned and overall prognosis appears poor.
Original Note:
Consultation
Consultation Request
Date/Time Consultation Requested: 08/13/25 at 2318
Date/Time Consultation Performed: 08/14/25 at 0918
Requesting Provider: Dr. Demetrius Bergeron
Performing Provider: Dr. Funes
Reason for Consultation: Elevated Troponin
Medical History
-
History of Present Illness:
Patient came to the ER yesterday with generalized weakness and hypoxia and cardiology is now consulted for elevated troponin and rapid A-fib. Patient lives alone. Patient had 4 children, but now only has 2 sons, 1 lives in [place] and the other
lives in [place]. Her children help her with appointments and call to check on her daily, but she cannot tell me how she gets groceries. The patient's sons were calling her and were worried when they did not hear from her for several hours and so
her son that lives locally checked on her during the day yesterday and found her laying on the ground and she appeared to be generally weak. Paramedics arrived and the patient was hypoxic and brought to the ER. In the ER initial temperature was
101.8 �F, but COVID and influenza swabs were negative. UA was abnormal and CXR was concerning for community-acquired PNA. Patient was admitted and has been started on IV antibiotics and cardiology is consulted for rapid A-fib. Patient has a known
history of permanent A-fib and denies feeling any palpitations. Patient says that she feels short of breath sometimes at rest sometimes with exertion, she cannot remember all the details. Patient has a history of COPD as well, but does not require
chronic home oxygen. Patient also has a history of CAD and ICM with her most recent PCI being in LAD stent in 2020 and she has residual OUTREACH SPECIALIST of the RCA and complex tortuous disease of the distal circumflex by cardiac catheterization in 2020.
Patient has ICM with EF 30 to 35% that is stable since 2020. Patient takes Lasix 20 mg PO daily, but this was held on admission due to DANAY. Patient denies any chest pain. Patient does not weigh herself on a daily basis. Patient does not think
she follows any particular salt or fluid restriction. Patient feels that she has been failing for the last couple of months and says that she knows she needs extra help and that this is the weakest she has ever felt.
PMH:
Permanent A-fib since 03/2020
Chronic Eliquis OAC for h/o DVT and A-fib
Chronic HFrEF
CAD
NSTEMI s/p urgent IABP and prox LAD PCI 06/05/21
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
Moderate to severe aortic stenosis peak/mean 43/24 and NATALIA 0.6 cm sq by echo 08/14/2025
Ischemic CM EF 30 to 35% by echo 08/14/2025
Hypertension
Dyslipidemia
Permanent atrial fibrillation, diagnosed 03/2020
Eliquis anticoagulation [DVT and A. fib]
Chronic LBBB
COPD
History of DVT
History of Graves' disease
Neuropathy
History of mechanical fall with L1 compression fracture 10/2020
Past Medical History
Past Medical History: Other (In HPI)
Past Surgical History: Cardiac (LAD PCI 06/04/2021) and Other (Cataract surgery bilaterally)
Social History
Tobacco: Former Smoker
Alcohol: Occasional
Drug: None
Personal:
Living: Alone
Family History
Family History: CAD and Cancer
Allergies / Home Medications
Allergy/AdvReac Type Severity Reaction Status Date / Time
No Known Allergies Allergy Verified 09/18/24 09:54
�Medication �Instructions �Recorded �Confirmed �Type
alendronate 70 mg tablet 70 mg PO SA osteoporosis 05/31/21 09/18/24 History
atorvastatin 40 mg tablet 40 mg PO DAILY High cholesterol 07/13/24 08/13/25 History
cholecalciferol (vitamin D3) 50 50 mcg PO DAILY Supplement 07/13/24 09/18/24 History
mcg (2,000 unit) tablet
albuterol sulfate 90 mcg/actuation 2 inh inhalation R QIDPRN PRN sob 09/04/24 09/18/24 History
aerosol inhaler
carvedilol 3.125 mg tablet 3.125 mg PO BID Blood Pressure 09/04/24 08/13/25 History
furosemide 40 mg tablet 20 mg PO DAILY Fluid 09/04/24 08/13/25 History
Retention/Swelling
umeclidinium 62.5 mcg-vilanterol 1 inh inhalation R DAILY@1300 09/04/24 08/13/25 History
25 mcg/actuation powdr for Lung/Breathing Issues
inhalation (Anoro Ellipta)
apixaban 2.5 mg tablet (Eliquis) 2.5 mg PO BID Blood Clot 09/18/24 08/13/25 History
Prevention/Tx
acetaminophen 325 mg tablet 650 mg (2 x 325 mg) PO Q4HPRN PRN 09/28/24 08/13/25 Rx
mild pain/COPE/temp> 100.4F #10 tabs
phenylephrine-guaifenesin 2.5 20 ml PO QPM Congestion 08/13/25 08/13/25 History
mg-100 mg/5 mL oral liquid
Review of Systems
-
History Source: Patient
All other systems: Negative unless noted
Physical Exam
Vital Signs
Temp Pulse Resp BP Pulse Ox
98.8 F 90 24 140/84 96
08/14/25 07:35 08/14/25 07:35 08/14/25 07:35 08/14/25 07:35 08/14/25 07:35
General: NAD. AAO x3. Thin and frail appearing
HEENT: EOMI, MMM
Skin: Warm, dry and pink.
Heart: SR on tele. Reg, 2/6 murmur
Lungs: 4 L NC. Expiratory wheeze and rhonchi, no rales.
Abd: ND
Extremities: Trace edema B/L LE
Neuro: Grossly nonfocal
Lab Results
08/14/25 07:36
08/14/25 07:36
Troponin I 0.105 ng/ml H* D 08/14/25 07:36
Impression / Plan
-
PCP: Dr. Bone
Dredge Boat Engineer: Dr. JERED Mccord
Impression:
Admitted with generalized weakness and community-acquired PNA 08/13/2025
Community acquired PNA
Sepsis
DANAY
Hyponatremia
Elevated troponin
A-fib with RVR, known permanent A-fib since 03/2020
Chronic Eliquis OAC for h/o DVT and A-fib
Chronic HFrEF
CAD
NSTEMI s/p urgent IABP and prox LAD PCI 06/05/21
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
Moderate to severe aortic stenosis peak/mean 43/24 and NATALIA 0.6 cm sq by echo 08/14/2025
Ischemic CM EF 30 to 35% by echo 08/14/2025
Hypertension
Dyslipidemia
Permanent atrial fibrillation, diagnosed 03/2020
Eliquis anticoagulation [DVT and A. fib]
Chronic LBBB
COPD
History of DVT
History of Graves' disease
Neuropathy
History of mechanical fall with L1 compression fracture 10/2020
ECHO 06/02/21: EF 35-40%, septal, mid to distal anterior and apical hypokinesis, asymmetric septal hypertrophy, stage II diastolic dysfunction, mitral annular calcification, moderate MR, thickened aortic valve with peak/mean gradients 25/11 mmHg,
NATALIA 1.1 cm�, moderate to severe , mild TR, PAP 35 mmHg
Echo 07/25/2021: EF 35%, moderate aortic stenosis with mean pressure gradient of 11 mmHg and aortic valve area 1.0 cm, moderate MR
Echo 07/14/2024: EF 35 to 40%, moderate MR, moderate with peak/mean gradient 9/13 mmHg, NATALIA 0.9 cm�, mild to moderate TR, estimated PAP 25 to 30 mmHg
Echo 08/14/2025: EF 30 to 35%, moderate to severe with peak/mean 43/24 mmHg and NATALIA 0.6 cm sq, moderate to severe MR, mild to moderate TR with PAP 48 mmHg, compared to echo from 07/14/2024 gradients were peak/mean 29/13 mmHg, NATALIA was 0.9 cm sq
and MR is worse now
Plan:
-Patient came to the ER yesterday with generalized weakness and hypoxia and cardiology is now consulted for elevated troponin and rapid A-fib. Patient lives alone. Patient had 4 children, but now only has 2 sons, 1 lives in [place] and the other
lives in [place]. Her children help her with appointments and call to check on her daily, but she cannot tell me how she gets groceries. The patient's sons were calling her and were worried when they did not hear from her for several hours and so
her son that lives locally checked on her during the day yesterday and found her laying on the ground and she appeared to be generally weak. Paramedics arrived and the patient was hypoxic and brought to the ER. In the ER initial temperature was
101.8 �F, but COVID and influenza swabs were negative. UA was abnormal and CXR was concerning for community-acquired PNA. Patient was admitted and has been started on IV antibiotics and cardiology is consulted for rapid A-fib. Patient has a known
history of permanent A-fib and denies feeling any palpitations. Patient says that she feels short of breath sometimes at rest sometimes with exertion, she cannot remember all the details. Patient has a history of COPD as well, but does not require
chronic home oxygen. Patient also has a history of CAD and ICM with her most recent PCI being in LAD stent in 2020 and she has residual OUTREACH SPECIALIST of the RCA and complex tortuous disease of the distal circumflex by cardiac catheterization in 2020.
Patient has ICM with EF 30 to 35% that is stable since 2020. Patient takes Lasix 20 mg PO daily, but this was held on admission due to DANAY. Patient denies any chest pain. Patient does not weigh herself on a daily basis. Patient does not think
she follows any particular salt or fluid restriction. Patient feels that she has been failing for the last couple of months and says that she knows she needs extra help and that this is the weakest she has ever felt.
-ECG on admission reviewed by me shows A-fib with RVR and LBBB. Patient has a chronic LBBB
-Initial troponin 0.153 and largely trending down thereafter. Patient denies any chest pain. ECG shows chronic LBBB. No evidence of new WMA by echo 08/14/2025. EF is 30 to 35% by echo 08/14/2025, but this is relatively stable compared to echo's
as far back as 2020. Will manage elevated troponin is a nonischemic myocardial injury troponin elevation in the setting of sepsis and rapid A-fib
-Additional troponin level orders canceled, orders placed by me.
-Patient had rapid A-fib on admission and has a known history of permanent A-fib. Patient is chronically on Coreg 3.125 mg BID and reports medication compliance at home. Suspect rapid A-fib was due to sepsis, PNA and DANAY. HR control has improved
with her usual dose of Coreg 3.125 mg BID and hydration.
-Outpatient dose of Eliquis 2.5 mg BID (age 85, Cre 1.3, wt 53.18 kg) has been continued. Hgb is stable at 12.1 on my review of labs.
-CXR is concerning for RML PNA. Patient has some increased LE edema. Check proBNP. Patient reports Lasix compliance as an outpatient, but does not follow salt or fluid restrictions and does not weigh herself on a daily basis.
-Patient reports weight loss over the last several months and she cannot tell me how she gets groceries into her home and states that she did not eat for at least 2 to 3 days prior to admission, but says this was due to generalized weakness.
Suspect that patient is failing in the home on her own and might benefit from home health aides or an assisted living situation.
-DANAY with Cre as high as 1.7 on admission and then improved to 1.3 on 08/14/2025, labs reviewed by me. Patient has received 2 L of IVF's as of 08/14/2025 afternoon.
-Patient with a history of chronic HFrEF and EF as noted above is 30 to 35% on 08/14/2025. GDMT has been limited by orthostatic hypotension in the past. Continue Coreg as noted above.
-Patient with moderate to severe and peak/mean 43/24 mmHg and NATALIA 0.6 cm sq by echo 08/14/2024. MR is also a bit worse and is now moderate to severe compared to echo from 07/14/2024. Not clear the patient would be a candidate for TAVR
evaluation, she would need more social support.
-Would not start SGLT2 inhibitor in the setting of possible UTI
[2025-08-14] MEDS: MUCINEX 600 MG PO ×2 (10:15→19:56)
[2025-08-14] MEDS: ELIQUIS 2.5 MG PO ×2 (10:19→19:56)
[2025-08-14] MEDS: COREG 3.125 MG PO ×2 (10:21→19:56)
--- NOTE | 2025-08-14 12:17 | CM ---
CM reviewed chart, patient seen bedside.
This is a 85-year-old female with past medical history of pulmonary atrial fibrillation, CHF with preserved EF, hypertension and hyperlipidemia as well as history of COPD who presents to the emergency department with weakness after being found down
at home by EMS and was found to be hypoxic.
Patient resides alone in a multiple story home, three steps to enter. 6 steps, turn, another 6 steps to bedroom.
Patient reports having a walker, denies home O2, currently on 4L.
Patient reports VN in past- unsure agency- per previous admission, [facility] in past.
Patient denies SNF, per previous admission, [facility] in past.
PCP Diana Bone, Pharmacy [facility], confirms prescription coverage.
Patient provided with Advance Directive paperwork.
PT consulted- will follow for recommendations.
CM will continue to follow.
Plan; watch for PT recommendations, watch for O2 needs
[2025-08-14 13:58] LABS: Troponin I 0.122 ng/ml
[2025-08-14] MEDS: VENTOLIN NEBULES 2.5 MG INH ×2 (15:19→19:19)
[2025-08-14] MEDS: ROCEPHIN 1000 MG IV (19:56)
[2025-08-14] MEDS: STERILE WATER FOR INJECTION 10 ML IV (19:57)
[2025-08-14] MEDS: ZITHROMAX INFUSION 250 IV (19:57)
[2025-08-15] VITALS (10 sets, daily range): BP systolic 101–144; BP diastolic 54–107; PULSE 80–125; O2SAT 99; BMI 19.9
[2025-08-15] MEDS: SPIRIVA RESPIMAT 2.5 MCG 2 PUFF INH (07:41)
[2025-08-15] MEDS: VENTOLIN NEBULES 2.5 MG INH ×3 (07:41→19:33)
[2025-08-15] MEDS: STRIVERDI RESPIMAT 2 PUFF INH (07:41)
[2025-08-15 09:19] LABS: Hematocrit 32.1 % (37.0-47.0); Hemoglobin 10.6 g/dL (12.0-16.0); Mean Corp Hgb Conc. 33.0 g/dL (33.0-37.0); Mean Corpuscular Volume 89.9 fL (81.0-99.0); Platelet Count 142 10^3/uL (130-400); Red Cell Dist. Width 13.1 % (11.5-14.5)
[2025-08-15 09:38] LABS: Blood Urea Nitrogen 26 mg/dl (7-17); Calcium 8.7 mg/dl (8.4-10.2); Carbon Dioxide 16 mmol/L (22-30); Chloride 103 mmol/L (98-107); Estimated Creatinine Clearance 37 ml/min; Glucose 91 mg/dl (70-99); Potassium 4.2 mmol/L (3.5-5.1); Sodium 130 mmol/L (135-145); eGFR 55.55
--- NOTE | 2025-08-15 09:55 | PN.CDI ---
CDI
- -
CDI:
Physician Documentation Request
Admit Date: 08/13/25 22:14
Dear Doctor Elyssa,
Please review the following and provide your response in the progress notes.
Clinical Indicators:
- 08/14 PN 'Congestive Heart Failure with Preserved EF'
- 08/14 Cardiology 'Chronic HFrEF'
- 08/14 Echo EF 30-35%
- 'Diastolic function indeterminate due to atrial fibrillation'
In an attempt to clarify potentially conflicting documentation, please clarify the type of CHF:
Chronic HFrEF
Chronic combined systolic and diastolic CHF
Other (please specify)
Use of terms such as suspected, likely, concern for, or probable (associated with a specific diagnosis that is being evaluated, monitored, or treated as if it exists) are acceptable and can be coded in the inpatient setting, when documented at the
time of discharge.
Thank you,
Angie Parson RN
CDI Specialist
Please use your independent medical judgment in providing your response.
--- NOTE | 2025-08-15 09:59 | PN.CDI ---
CDI
- -
CDI:
Physician Documentation Request
Admit Date: 08/13/25 22:14
Dear Doctor Elyssa,
Please review the following and provide your response in the progress notes.
Clinical Indicators:
- ER Physician 'found to be laying on the ground and profoundly weak. For EMS she was noted to be saturating in the 70s on room air'
- 'acute respiratory distress'
- Documented VS 6L O2, pulse ox >92% on arrival
Clarify which of the following accurately represents the patient's respiratory status:
Acute hypoxic respiratory failure
Hypoxia
Other (please specify)
Additional information for Respiratory Failure:
Recognized criteria for Respiratory Failure (Source: Misti Mirza. 2018July 12.
Documentation tips: Acute Respiratory Failure, The Hospitalist.)
ABGs: (1 or more) Symptoms Please indicate type if known
1. p)2 <60 or RA SPO2 <91% on RA 1. Tachypnea, SOB, dyspnea Hypoxic
2. pCO2 >45 and pH <7.35 2. Use of accessory muscles Hypercapnic
3. pO2 decrease of pCO2 increase by 3. Pallor or cyanosis Hypoxic and Hypercapnic
10 mmHg from baseline if known 4. Anxiety or restlessness Unable to determine
4. P/F Ratio (pO2/FiO2)nless than 300 5. Unable to speak in full sentences
Use of terms such as suspected, likely, concern for, or probable (associated with a specific diagnosis that is being evaluated, monitored, or treated as if it exists) are acceptable and can be coded in the inpatient setting, when documented at the
time of discharge.
Thank you,
Angie Parson RN
CDI Specialist
Please use your independent medical judgment in providing your response.
[2025-08-15] MEDS: MUCINEX 600 MG PO ×2 (10:21→21:12)
[2025-08-15] MEDS: COREG 3.125 MG PO ×2 (10:21→21:12)
[2025-08-15] MEDS: ELIQUIS 2.5 MG PO ×2 (10:21→21:12)
--- NOTE | 2025-08-15 10:43 | W.PN.CARDCBS ---
Today's Communication / Plan
-
Plan to resume home cardiac meds
We will sign off. Outpatient follow-up to be arranged.
Impression / Plan
-
PCP: Dr. Bone
Application Counselor: Dr. JERED Mccord
Impression:
Admitted with generalized weakness and community-acquired PNA 08/13/2025
Community acquired PNA
Sepsis
DANAY
Hyponatremia
Elevated troponin
A-fib with RVR, known permanent A-fib since 03/2020
Chronic Eliquis OAC for h/o DVT and A-fib
Chronic HFrEF
CAD
NSTEMI s/p urgent IABP and prox LAD PCI 06/05/21
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
Moderate to severe aortic stenosis peak/mean 43/24 and NATALIA 0.6 cm sq by echo 08/14/2025
Ischemic CM EF 30 to 35% by echo 08/14/2025
Hypertension
Dyslipidemia
Permanent atrial fibrillation, diagnosed 03/2020
Eliquis anticoagulation [DVT and A. fib]
Chronic LBBB
COPD
History of DVT
History of Graves' disease
Neuropathy
History of mechanical fall with L1 compression fracture 10/2020
ECHO 06/02/21: EF 35-40%, septal, mid to distal anterior and apical hypokinesis, asymmetric septal hypertrophy, stage II diastolic dysfunction, mitral annular calcification, moderate MR, thickened aortic valve with peak/mean gradients 25/11 mmHg,
NATALIA 1.1 cm�, moderate to severe , mild TR, PAP 35 mmHg
Echo 07/25/2021: EF 35%, moderate aortic stenosis with mean pressure gradient of 11 mmHg and aortic valve area 1.0 cm, moderate MR
Echo 07/14/2024: EF 35 to 40%, moderate MR, moderate with peak/mean gradient 9/13 mmHg, NATALIA 0.9 cm�, mild to moderate TR, estimated PAP 25 to 30 mmHg
Echo 08/14/2025: EF 30 to 35%, moderate to severe with peak/mean 43/24 mmHg and NATALIA 0.6 cm sq, moderate to severe MR, mild to moderate TR with PAP 48 mmHg, compared to echo from 07/14/2024 gradients were peak/mean 29/13 mmHg, NATALIA was 0.9 cm sq
and MR is worse now
Plan:
-Presenting with weakness found to have PNA, DANAY and hypoNa. Troponin was elevated for which cardiology was consulted.
-Troponin trend is overall flat: 0.153 -> 0.147 -> 0.105 -> 0.122
-Not reporting chest discomfort and ECG largely unchanged from prior
-Overall suspect nonMI troponin elevation
-AFib is permanent. Rates were initially elevated, but better controlled with treatment of underlying infx and fluid resuscitation.
-Cont low dose Coreg for HR goal <110 bpm. May need to tolerate higher HRs in the setting of sepsis.
-Eliquis for risk reduction of cardioembolic stroke
-History of HFrEF and mod-severe /MR. Echo is relatively stable compared to prior.
-Lasix has been on hold for DANAY. Cr 1.0 back at baseline.
-Will resume home furosemide at 20mg daily to start tomorrow AM
-Defer treatment of CAP to primary service
Stable cardiac status. We will sign off. Please recall as needed. Outpatient follow-up to be arranged.
Recommended cardiac meds on discharge;
Coreg 3.125 mg twice daily
Eliquis 2.5 mg twice daily
Lasix 20 mg daily
Atorvastatin 40 mg daily
Patient came to the ER yesterday with generalized weakness and hypoxia and cardiology is now consulted for elevated troponin and rapid A-fib. Patient lives alone. Patient had 4 children, but now only has 2 sons, 1 lives in [place]. Her children
help her with appointments and call to check on her daily, but she cannot tell me how she gets groceries. The patient's sons were calling her and were worried when they did not hear from her for several hours and so her son that lives locally
checked on her during the day yesterday and found her laying on the ground and she appeared to be generally weak. Paramedics arrived and the patient was hypoxic and brought to the ER. In the ER initial temperature was 101.8 �F, but COVID and
influenza swabs were negative. UA was abnormal and CXR was concerning for community-acquired PNA. Patient was admitted and has been started on IV antibiotics and cardiology is consulted for rapid A-fib. Patient has a known history of permanent
A-fib and denies feeling any palpitations. Patient says that she feels short of breath sometimes at rest sometimes with exertion, she cannot remember all the details. Patient has a history of COPD as well, but does not require chronic home oxygen.
Patient also has a history of CAD and ICM with her most recent PCI being in LAD stent in 2020 and she has residual DEAN OF GIRLS of the RCA and complex tortuous disease of the distal circumflex by cardiac catheterization in 2020. Patient has ICM with EF 30
to 35% that is stable since 2020. Patient takes Lasix 20 mg PO daily, but this was held on admission due to DANAY. Patient denies any chest pain. Patient does not weigh herself on a daily basis. Patient does not think she follows any particular
salt or fluid restriction. Patient feels that she has been failing for the last couple of months and says that she knows she needs extra help and that this is the weakest she has ever felt.
Progress Note - Application Counselor
Subjective
Date of Service: August 15, 2025
No acute overnight events. Patient resting comfortably in bed on monitored floor. Still requiring supplemental oxygen. No cardiac complaints today. Reports productive cough with yellow sputum.
Objective
Labs:
08/15/25 08:36
08/15/25 08:36
Labs
Hgb 10.6 g/dL (12.0-16.0) L 08/15/25 08:36
Hct 32.1 % (37.0-47.0) L 08/15/25 08:36
Plt Count 142 10^3/uL (130-400) 08/15/25 08:36
Sodium 130 mmol/L (135-145) L 08/15/25 08:36
Potassium 4.2 mmol/L (3.5-5.1) 08/15/25 08:36
BUN 26 mg/dl (7-17) H 08/15/25 08:36
Creatinine 1.0 mg/dL (0.6-1.0) 08/15/25 08:36
Glucose 91 mg/dl (70-99) 08/15/25 08:36
Troponins
08/13/25 08/13/25 08/14/25
19:29 23:18 01:25
Troponin I 0.153 H* Cancelled 0.147 H*
08/14/25 08/14/25 08/14/25
07:36 13:19 19:30
Troponin I 0.105 H* D 0.122 H* Cancelled
Vital Signs and I&O:
Vital Signs
Temp Pulse Resp BP Pulse Ox
97.9 F 95 16 142/112 94
08/15/25 07:35 08/15/25 10:21 08/15/25 07:44 08/15/25 10:21 08/15/25 07:44
Vital Signs
Temp Pulse Resp BP Pulse Ox
97.9 F 95 16 142/112 94
08/15/25 07:35 08/15/25 10:21 08/15/25 07:44 08/15/25 10:21 08/15/25 07:44
Intake & Output
08/13/25 08/14/25 08/15/25 08/16/25
06:59 06:59 06:59 06:59
Intake Total 999 840 / 840
Balance 999 840 / 840
Physical Exam
Physical Exam
Gen: NAD, AA, resting comfortably
HEENT: NC/AT, sclera anicteric
Neck: No JVD
CV: irregularly irregular, JOSUE
Lungs: CTA anterior on 2L NC
Abd: S/ND
Ext: No LE edema
Skin: Warm, dry
Neuro: Non-focal
--- NOTE | 2025-08-15 12:07 | W.PN.HOSP.TC ---
Today's Communication/Plan
-
Overall improving.
Medically cleared to discharge to rehab
Assessment / Plan
Assessment / Plan
Impression:
85-year-old with past medical history significant for atrial fibrillation, CHF with preserved EF, hyperlipidemia, COPD not on home O2 presents to the emergency department with weakness and a fall and was found to be hypoxic with multifocal
infiltrates on x-ray consistent with pneumonia. She did have a fever to 101 arrival in the emergency department. Viral studies were negative. She has not eaten anything in 3 days due to weakness and is dehydrated. She is found to have a troponin
elevation to 0.1. She is currently requiring 2 L supplemental oxygen but has no increased work of breathing. She is not wheezing. She has mild crackles on the right middle and right basal lungs on auscultation.
Seen by cardiology, repeated echo shows EF 30 to 35%, mitral regurg moderate to severe.
Cardiology recommended to continue outpatient home meds and signed off.
Shortness of breath improving, physical recommending rehab
Assessment/plan:
Sepsis with acute organ dysfunction secondary Community-Acquired Pneumonia
Acute organ dysfunction forme of acute Kidney Injury (DANAY)
Acute hypoxic respiratory failure
Admitted to telemetry.
Continue IV ceftriaxone and azithromycin.
Negative Legionella and pneumococcal urinary antigens.
sputum culture if available.
supplemental oxygen as needed, still on 4 L
Encourage incentive spirometry.
Physical therapy and case management consults.
S/p IVF--kidney function improved
Acute Kidney Injury
Likely secondary to sepsis and dehydration (patient has poor oral intake for several days).
Held Lasix.
Status post IV fluid
Adjust medications to renal dosing.
Avoid nephrotoxins.
Creatinine improved
Acute hypoxic respiratory failure
Secondary to pneumonia.
Continue to wean oxygen
Non-Ischemic Myocardial Injury
Troponin: 0.1; ECG shows atrial fibrillation.
Suspect hypoxia-induced myocardial injury and possibly rapid AF; rate currently controlled.
Continue Eliquis.
Trend troponins.
Cardiology consulted.
Echocardiogram shows:
1. Ejection fraction is 30-35% by volumetric assesment.
2. Moderate to severe aortic valve stenosis. Trace aortic regurgitation.
3. Using an left ventricular outflow tract of 2.0 cm., and peak/mean gradient of 43/24, the NATALIA = .6cm2.
4. Moderate to severe mitral valve regurgitation.
5. Mild to moderate tricuspid regurgitation. Estimated pulmonary artery pressure of 48 mmHg assuming a right atrial pressure of 3 mmHg.
6. Compared to a prior transthoracic echocardiogram study from 07/14/2024 Aortic valve gradients have increased from prior peak/mean 29/13 mmHg to now 43/24 mmHg and aortic valve area has decreased to 0.6 cm². Mitral regurgitation has worsened and
is now moderate to severe. Pulmonary artery pressure is now increased to 48 mmHg.
Chronic Obstructive Pulmonary Disease (COPD)
No wheezing or increased work of breathing.
Continue Anoro Ellipta.
Nebulizer treatments every 6 hours.
Albuterol as needed.
Chronic combined systolic and diastolic CHF
Patient is dehydrated; no signs of volume overload.
Initially was given fluid, then converts improved, fluids
Resumed Lasix.
Echocardiogram as above.
Hyponatremia.
Improved but then worsening to 130
Continue to monitor
CODE STATUS: Full code
DVT prophylaxis: Eliquis.
Diet: Regular diet
Disposition: Overall improving.
Medically cleared to discharge to rehab
Total time spent on today's encounter was 55 minutes which included time spent in counseling the patient/family regarding diagnosis and treatment plan as listed above, goals of care, and symptom management. Case was discussed with nursing staff,
specialists, and care coordinators/case management. All labs and imaging personally reviewed by me. Remainder the time spent in detailed review of previous records, lab data, imaging, and other medical provider documentation.
Part of this note was created using voice recognition system. Occasional wrong word or �sound alike� substitutions may have inadvertently occurred due to the inherent limitations of voice recognition software. If noted kindly bring it to my
attention for correction.
Anticipated Discharge: Today
Subjective/Interval History
-
Date of Service: August 15, 2025
Patient seen and examined at bedside, denies any chest pain, improved shortness of breath, no abdominal pain, no nausea, no vomiting, no diarrhea or constipation.
Objective Data
-
Labs:
Laboratory Results
08/15/25
08:36
WBC 8.0
Hgb 10.6 L
Hct 32.1 L
Plt Count 142
Sodium 130 L
Potassium 4.2
Chloride 103
Carbon Dioxide 16 L
BUN 26 H
Creatinine 1.0
Glucose 91
Calcium 8.7
Vital Signs:
Vital Signs
Temp Pulse Resp BP Pulse Ox
97.6 F 94 24 119/65 96
08/15/25 11:54 08/15/25 11:54 08/15/25 11:54 08/15/25 11:54 08/15/25 11:54
I&O
08/14/25 08/15/25 08/16/25
06:59 06:59 06:59
Intake Total 1000 / 1000 840 / 840
Balance 1000 / 1000 840 / 840
Physical Exam
-
General: Well Developed, Well Nourished, No Apparent Distress and Comfortable
HEENT: Normocephalic, Atraumatic, Moist Mucous Membranes, No Ptosis, PERRLA and Nose Appears Normal
Respiratory: Rales, Rhonchi, Crackles and Non Labored Respirations
Cardiac: Regular Rhythm and S1/S2
Breast: Deferred by me
GI: Soft, Nontender, Nondistended and Normal Bowel Sounds
Genito-urinary: No Costovertebral Tender
Musculoskeletal: No Clubbing, No Cyanosis and No Edema
Skin: Warm
Neuro: Awake, Alert, Oriented, AO x 3 and No Motor Deficits
Psych: Calm
--- NOTE | 2025-08-15 12:10 | CM ---
CM reviewed chart, patient seen bedside, discussed therapy recommendations of SNF.
Patient agreeable, referrals placed to local facilities via [facility].
Patient will require auth when stable/facility found.
Patient remains on O2.
CM will continue to follow.
Plan; SNF pending accepting facility, will require auth
[2025-08-15] MEDS: VENTOLIN NEBULES INH (15:01)
--- NOTE | 2025-08-15 18:33 | PTCARENOTE ---
Assumed care of pt from previous nurse. Pt denies pain. Pt tele running afib. pt barnett, sating 94% on 2L's via nc. pt call martinez is within reach, pt rings mary. will cont to monitor.
[2025-08-15] MEDS: ZITHROMAX INFUSION 250 IV (21:11)
[2025-08-15] MEDS: STERILE WATER FOR INJECTION 10 ML IV (21:12)
[2025-08-15] MEDS: ROCEPHIN 1000 MG IV (21:12)
[2025-08-15] MEDS: FLUSH (NSS) 3 FLUSH IV (21:13)
[2025-08-16 03:03] VITALS: BP 112/73
[2025-08-16 05:53] VITALS: BMI 19.4
[2025-08-16 07:00] VITALS: BP 121/71
[2025-08-16] MEDS: VENTOLIN NEBULES 2.5 MG INH ×3 (07:46→14:26)
[2025-08-16] MEDS: SPIRIVA RESPIMAT 2.5 MCG 2 PUFF INH (07:46)
[2025-08-16] MEDS: STRIVERDI RESPIMAT 2 PUFF INH (07:51)
[2025-08-16] MEDS: MUCINEX 600 MG PO ×2 (09:54→20:59)
[2025-08-16] MEDS: COREG 3.125 MG PO ×2 (09:54→21:00)
[2025-08-16] MEDS: LASIX 20 MG PO (09:54)
[2025-08-16] MEDS: ELIQUIS 2.5 MG PO ×2 (09:54→21:00)
[2025-08-16 11:00] VITALS: BP 104/64
[2025-08-16 11:08] LABS: Red Cell Dist. Width 13.1 % (11.5-14.5)
[2025-08-16 12:04] LABS: Hematocrit 32.2 % (37.0-47.0); Hemoglobin 10.3 g/dL (12.0-16.0); Mean Corp Hgb Conc. 32.0 g/dL (33.0-37.0); Mean Corpuscular Volume 91.7 fL (81.0-99.0); Platelet Count 130 10^3/uL (130-400)
--- NOTE | 2025-08-16 12:27 | W.PN.HOSP.TC ---
Today's Communication/Plan
-
Overall improving.
Medically cleared to discharge to rehab
Assessment / Plan
Assessment / Plan
Impression:
85-year-old with past medical history significant for atrial fibrillation, CHF with preserved EF, hyperlipidemia, COPD not on home O2 presents to the emergency department with weakness and a fall and was found to be hypoxic with multifocal
infiltrates on x-ray consistent with pneumonia. She did have a fever to 101 arrival in the emergency department. Viral studies were negative. She has not eaten anything in 3 days due to weakness and is dehydrated. She is found to have a troponin
elevation to 0.1. She is currently requiring 2 L supplemental oxygen but has no increased work of breathing. She is not wheezing. She has mild crackles on the right middle and right basal lungs on auscultation.
Seen by cardiology, repeated echo shows EF 30 to 35%, mitral regurg moderate to severe.
Cardiology recommended to continue outpatient home meds and signed off.
Shortness of breath improving, physical recommending rehab
Assessment/plan:
Sepsis with acute organ dysfunction secondary Community-Acquired Pneumonia
Acute organ dysfunction forme of acute Kidney Injury (DANAY)
Acute hypoxic respiratory failure
Admitted to telemetry.
Continue IV ceftriaxone and azithromycin.
Negative Legionella and pneumococcal urinary antigens.
sputum culture if available.
supplemental oxygen as needed, still on 4 L
Encourage incentive spirometry.
Physical therapy and case management consults.
S/p IVF--kidney function improved
Acute Kidney Injury
Likely secondary to sepsis and dehydration (patient has poor oral intake for several days).
Held Lasix.
Status post IV fluid
Adjust medications to renal dosing.
Avoid nephrotoxins.
Creatinine improved
Acute hypoxic respiratory failure
Secondary to pneumonia.
Continue to wean oxygen
Non-Ischemic Myocardial Injury
Troponin: 0.1; ECG shows atrial fibrillation.
Suspect hypoxia-induced myocardial injury and possibly rapid AF; rate currently controlled.
Continue Eliquis.
Trend troponins.
Cardiology consulted.
Echocardiogram shows:
1. Ejection fraction is 30-35% by volumetric assesment.
2. Moderate to severe aortic valve stenosis. Trace aortic regurgitation.
3. Using an left ventricular outflow tract of 2.0 cm., and peak/mean gradient of 43/24, the NATALIA = .6cm2.
4. Moderate to severe mitral valve regurgitation.
5. Mild to moderate tricuspid regurgitation. Estimated pulmonary artery pressure of 48 mmHg assuming a right atrial pressure of 3 mmHg.
6. Compared to a prior transthoracic echocardiogram study from 07/14/2024 Aortic valve gradients have increased from prior peak/mean 29/13 mmHg to now 43/24 mmHg and aortic valve area has decreased to 0.6 cm². Mitral regurgitation has worsened and
is now moderate to severe. Pulmonary artery pressure is now increased to 48 mmHg.
Chronic Obstructive Pulmonary Disease (COPD)
No wheezing or increased work of breathing.
Continue Anoro Ellipta.
Nebulizer treatments every 6 hours.
Albuterol as needed.
Chronic combined systolic and diastolic CHF
Patient is dehydrated; no signs of volume overload.
Initially was given fluid, then converts improved, fluids
Resumed Lasix.
Echocardiogram as above.
Hyponatremia.
Improved but then worsening to 130
Continue to monitor
CODE STATUS: Full code
DVT prophylaxis: Eliquis.
Diet: Regular diet
Disposition: Overall improving.
Medically cleared to discharge to rehab
Total time spent on today's encounter was 55 minutes which included time spent in counseling the patient/family regarding diagnosis and treatment plan as listed above, goals of care, and symptom management. Case was discussed with nursing staff,
specialists, and care coordinators/case management. All labs and imaging personally reviewed by me. Remainder the time spent in detailed review of previous records, lab data, imaging, and other medical provider documentation.
Part of this note was created using voice recognition system. Occasional wrong word or �sound alike� substitutions may have inadvertently occurred due to the inherent limitations of voice recognition software. If noted kindly bring it to my
attention for correction.
Anticipated Discharge: Today
Subjective/Interval History
-
Date of Service: August 16, 2025
Patient seen and examined at bedside, denies any chest pain , coughing and shortness of breath Improved, no abdominal pain, no nausea, no vomiting, no diarrhea or constipation.
Objective Data
-
Labs:
Laboratory Results
08/16/25
11:31
WBC 6.2
Hgb 10.3 L
Hct 32.2 L
Plt Count 130
Sodium Pending
Potassium Pending
Chloride Pending
Carbon Dioxide Pending
BUN Pending
Creatinine Pending
Glucose Pending
Calcium Pending
Vital Signs:
Vital Signs
Temp Pulse Resp BP Pulse Ox
97.8 F 90 16 104/64 98
08/16/25 11:00 08/16/25 11:17 08/16/25 11:17 08/16/25 11:00 08/16/25 11:17
I&O
08/15/25 08/16/25 08/17/25
06:59 06:59 06:59
Intake Total 840 / 840 1150 / 1150
Balance 840 / 840 1150 / 1150
Physical Exam
-
General: Well Developed, Well Nourished, No Apparent Distress and Comfortable
HEENT: Normocephalic, Atraumatic, Moist Mucous Membranes, No Ptosis, PERRLA and Nose Appears Normal
Respiratory: Rales, Rhonchi, Crackles and Non Labored Respirations
Cardiac: Regular Rhythm and S1/S2
Breast: Deferred by me
GI: Soft, Nontender, Nondistended and Normal Bowel Sounds
Genito-urinary: No Costovertebral Tender
Musculoskeletal: No Clubbing, No Cyanosis and No Edema
Skin: Warm
Neuro: Awake, Alert, Oriented, AO x 3 and No Motor Deficits
Psych: Calm
[2025-08-16 13:19] LABS: Blood Urea Nitrogen 22 mg/dl (7-17); Calcium 8.9 mg/dl (8.4-10.2); Carbon Dioxide 22 mmol/L (22-30); Chloride 104 mmol/L (98-107); Estimated Creatinine Clearance 45 ml/min; Glucose 99 mg/dl (70-99); Potassium 3.8 mmol/L (3.5-5.1); Sodium 130 mmol/L (135-145); eGFR > 60.00
[2025-08-16 15:00] VITALS: BP 112/71
[2025-08-16 19:37] VITALS: BP 129/80
[2025-08-16] MEDS: STERILE WATER FOR INJECTION 10 ML IV (20:59)
[2025-08-16] MEDS: ROCEPHIN 1000 MG IV (20:59)
[2025-08-16] MEDS: ZITHROMAX INFUSION 250 IV (20:59)
[2025-08-16] MEDS: FLUSH (NSS) 3 FLUSH IV (21:00)
[2025-08-16] MEDS: VENTOLIN NEBULES INH (22:05)
[2025-08-16 23:42] VITALS: BP 130/75
[2025-08-17 03:20] VITALS: BP 118/68
[2025-08-17 06:00] VITALS: BMI 19.4
[2025-08-17 07:00] VITALS: BP 110/75
[2025-08-17] MEDS: VENTOLIN NEBULES 2.5 MG INH (07:50)
[2025-08-17] MEDS: SPIRIVA RESPIMAT 2.5 MCG 2 PUFF INH (07:52)
[2025-08-17] MEDS: STRIVERDI RESPIMAT 2 PUFF INH (07:52)
[2025-08-17] MEDS: MUCINEX 600 MG PO (09:09)
[2025-08-17] MEDS: ELIQUIS 2.5 MG PO (09:09)
[2025-08-17] MEDS: COREG 3.125 MG PO (09:09)
[2025-08-17] MEDS: LASIX 20 MG PO (09:09)
[2025-08-17 09:29] LABS: Hematocrit 32.6 % (37.0-47.0); Hemoglobin 10.4 g/dL (12.0-16.0); Mean Corp Hgb Conc. 31.9 g/dL (33.0-37.0); Mean Corpuscular Volume 92.6 fL (81.0-99.0); Platelet Count 134 10^3/uL (130-400); Red Cell Dist. Width 13.1 % (11.5-14.5)
[2025-08-17 09:51] LABS: Blood Urea Nitrogen 19 mg/dl (7-17); Calcium 8.3 mg/dl (8.4-10.2); Carbon Dioxide 23 mmol/L (22-30); Chloride 100 mmol/L (98-107); Estimated Creatinine Clearance 40 ml/min; Glucose 91 mg/dl (70-99); Potassium 3.7 mmol/L (3.5-5.1); Sodium 129 mmol/L (135-145); eGFR > 60.00
[2025-08-17 11:00] VITALS: BP 112/78
--- NOTE | 2025-08-17 13:28 | W.PN.HOSP.TC ---
Today's Communication/Plan
-
Overall improving.
Medically cleared to discharge to rehab
Assessment / Plan
Assessment / Plan
Impression:
85-year-old with past medical history significant for atrial fibrillation, CHF with preserved EF, hyperlipidemia, COPD not on home O2 presents to the emergency department with weakness and a fall and was found to be hypoxic with multifocal
infiltrates on x-ray consistent with pneumonia. She did have a fever to 101 arrival in the emergency department. Viral studies were negative. She has not eaten anything in 3 days due to weakness and is dehydrated. She is found to have a troponin
elevation to 0.1. She is currently requiring 2 L supplemental oxygen but has no increased work of breathing. She is not wheezing. She has mild crackles on the right middle and right basal lungs on auscultation.
Seen by cardiology, repeated echo shows EF 30 to 35%, mitral regurg moderate to severe.
Cardiology recommended to continue outpatient home meds and signed off.
Shortness of breath improving, physical recommending rehab
Assessment/plan:
Sepsis with acute organ dysfunction secondary Community-Acquired Pneumonia
Acute organ dysfunction forme of acute Kidney Injury (DANAY)
Acute hypoxic respiratory failure
Admitted to telemetry.
Continue IV ceftriaxone and azithromycin.
Negative Legionella and pneumococcal urinary antigens.
sputum culture if available.
supplemental oxygen as needed, still on 4 L
Encourage incentive spirometry.
Physical therapy and case management consults.
S/p IVF--kidney function improved
Acute Kidney Injury
Likely secondary to sepsis and dehydration (patient has poor oral intake for several days).
Held Lasix.
Status post IV fluid
Adjust medications to renal dosing.
Avoid nephrotoxins.
Creatinine improved
Acute hypoxic respiratory failure
Secondary to pneumonia.
Continue to wean oxygen
Non-Ischemic Myocardial Injury
Troponin: 0.1; ECG shows atrial fibrillation.
Suspect hypoxia-induced myocardial injury and possibly rapid AF; rate currently controlled.
Continue Eliquis.
Trend troponins.
Cardiology consulted.
Echocardiogram shows:
1. Ejection fraction is 30-35% by volumetric assesment.
2. Moderate to severe aortic valve stenosis. Trace aortic regurgitation.
3. Using an left ventricular outflow tract of 2.0 cm., and peak/mean gradient of 43/24, the NATALIA = .6cm2.
4. Moderate to severe mitral valve regurgitation.
5. Mild to moderate tricuspid regurgitation. Estimated pulmonary artery pressure of 48 mmHg assuming a right atrial pressure of 3 mmHg.
6. Compared to a prior transthoracic echocardiogram study from 07/14/2024 Aortic valve gradients have increased from prior peak/mean 29/13 mmHg to now 43/24 mmHg and aortic valve area has decreased to 0.6 cm². Mitral regurgitation has worsened and
is now moderate to severe. Pulmonary artery pressure is now increased to 48 mmHg.
Chronic Obstructive Pulmonary Disease (COPD)
No wheezing or increased work of breathing.
Continue Anoro Ellipta.
Nebulizer treatments every 6 hours.
Albuterol as needed.
Chronic combined systolic and diastolic CHF
Patient is dehydrated; no signs of volume overload.
Initially was given fluid, then converts improved, fluids
Resumed Lasix.
Echocardiogram as above.
Hyponatremia.
Improved but then worsening again
1500 cc fluid restriction
Continue to monitor
CODE STATUS: Full code
DVT prophylaxis: Eliquis.
Diet: Regular diet
Disposition: Overall improving.
Medically cleared to discharge to rehab
Total time spent on today's encounter was 55 minutes which included time spent in counseling the patient/family regarding diagnosis and treatment plan as listed above, goals of care, and symptom management. Case was discussed with nursing staff,
specialists, and care coordinators/case management. All labs and imaging personally reviewed by me. Remainder the time spent in detailed review of previous records, lab data, imaging, and other medical provider documentation.
Part of this note was created using voice recognition system. Occasional wrong word or �sound alike� substitutions may have inadvertently occurred due to the inherent limitations of voice recognition software. If noted kindly bring it to my
attention for correction.
Anticipated Discharge: Today
Subjective/Interval History
-
Date of Service: August 17, 2025
Patient seen and examined at bedside, denies any chest pain or shortness of breath, no abdominal pain, no nausea, no vomiting, no diarrhea or constipation.
Objective Data
-
Labs:
Laboratory Results
08/17/25
08:24
WBC 5.0
Hgb 10.4 L
Hct 32.6 L
Plt Count 134
Sodium 129 L
Potassium 3.7
Chloride 100
Carbon Dioxide 23
BUN 19 H
Creatinine 0.9
Glucose 91
Calcium 8.3 L
Vital Signs:
Vital Signs
Temp Pulse Resp BP Pulse Ox
98.4 F 86 22 112/78 97
08/17/25 11:00 08/17/25 11:00 08/17/25 11:00 08/17/25 11:00 08/17/25 11:00
I&O
08/16/25 08/17/25 08/18/25
06:59 06:59 06:59
Intake Total 1150 / 1150 1330 / 1330
Balance 1150 / 1150 1330 / 1330
Physical Exam
-
General: Well Developed, Well Nourished, No Apparent Distress and Comfortable
HEENT: Normocephalic, Atraumatic, Moist Mucous Membranes, No Ptosis, PERRLA and Nose Appears Normal
Respiratory: Rales, Rhonchi, Crackles and Non Labored Respirations
Cardiac: Regular Rhythm and S1/S2
Breast: Deferred by me
GI: Soft, Nontender, Nondistended and Normal Bowel Sounds
Genito-urinary: No Costovertebral Tender
Musculoskeletal: No Clubbing, No Cyanosis and No Edema
Skin: Warm
Neuro: Awake, Alert, Oriented, AO x 3 and No Motor Deficits
Psych: Calm
--- NOTE | 2025-08-17 14:08 | PTCARENOTE ---
pt son at bedside. concerned that pt is not able to make decisions and that he is poa and should be more involved with rehab. has spoke to case management.
--- NOTE | 2025-08-17 14:13 | CM ---
Addendum entered by Lucina Marquez 08/17/25 14:45:
Bed available @ [facility] pending Auth Approval
Facility NPI # [id number]
Provider: Dr. Leiva; NPI # [id number]
Original Note:
Spoke with patient's son/POA, Tay Minor via phone # [phone]; he is agreeable with mother going to SNF
Explained that referrals were accepted by [facility] and [facility]; son's site preference is [facility]
Facility liaison notified via phone and [employer]. Once bed is secured, authorization will be submitted
Plan: Discharge to SNF pending bed availability and authorization approval
--- NOTE | 2025-08-17 15:00 | CM ---
Availity initiated [employer] Auth
Auth # [id number]
Start date 08/17/25, NRD 08/23/25
updates to
--- NOTE | 2025-08-17 15:13 | W.DCSUMMARY ---
Discharge Summary
Discharge Data
Date of Admission: 08/13/25
Date of Discharge: 08/17/25
Total time spent discharging patient (in min): 40
-
Pending Results: No
Hospital Course
Hospital course
85-year-old with past medical history significant for atrial fibrillation, CHF with preserved EF, hyperlipidemia, COPD not on home O2 presents to the emergency department with weakness and a fall and was found to be hypoxic with multifocal
infiltrates on x-ray consistent with pneumonia. She did have a fever to 101 arrival in the emergency department. Viral studies were negative. She has not eaten anything in 3 days due to weakness and is dehydrated. She is found to have a troponin
elevation to 0.1. She is currently requiring 2 L supplemental oxygen but has no increased work of breathing. She is not wheezing. She has mild crackles on the right middle and right basal lungs on auscultation.
Seen by cardiology, repeated echo shows EF 30 to 35%, mitral regurg moderate to severe.
Cardiology recommended to continue outpatient home meds and signed off.
Shortness of breath improving, physical recommending rehab
During hospitalization patient was treated from the following
Sepsis with acute organ dysfunction secondary Community-Acquired Pneumonia
Acute organ dysfunction forme of acute Kidney Injury (DANAY)
Acute hypoxic respiratory failure
Admitted to telemetry.
Continue IV ceftriaxone and azithromycin.
Negative Legionella and pneumococcal urinary antigens.
sputum culture if available.
supplemental oxygen as needed, still on 4 L
Encourage incentive spirometry.
Physical therapy and case management consults.
S/p IVF--kidney function improved
Acute Kidney Injury
Likely secondary to sepsis and dehydration (patient has poor oral intake for several days).
Held Lasix.
Status post IV fluid
Adjust medications to renal dosing.
Avoid nephrotoxins.
Creatinine improved
Acute hypoxic respiratory failure
Secondary to pneumonia.
Continue to wean oxygen
Non-Ischemic Myocardial Injury
Troponin: 0.1; ECG shows atrial fibrillation.
Suspect hypoxia-induced myocardial injury and possibly rapid AF; rate currently controlled.
Continue Eliquis.
Trend troponins.
Cardiology consulted.
Echocardiogram shows: 1. Ejection fraction is 30-35% by volumetric assesment.
2. Moderate to severe aortic valve stenosis. Trace aortic regurgitation.
3. Using an left ventricular outflow tract of 2.0 cm., and peak/mean gradient of 43/24, the NATALIA = .6cm2.
4. Moderate to severe mitral valve regurgitation.
5. Mild to moderate tricuspid regurgitation. Estimated pulmonary artery pressure of 48 mmHg assuming a right atrial pressure of 3 mmHg.
6. Compared to a prior transthoracic echocardiogram study from 07/14/2024 Aortic valve gradients have increased from prior peak/mean 29/13 mmHg to now 43/24 mmHg and aortic valve area has decreased to 0.6 cm². Mitral regurgitation has worsened and
is now moderate to severe. Pulmonary artery pressure is now increased to 48 mmHg.
Chronic Obstructive Pulmonary Disease (COPD)
No wheezing or increased work of breathing.
Continue Anoro Ellipta.
Nebulizer treatments every 6 hours.
Albuterol as needed.
Chronic combined systolic and diastolic CHF
Patient is dehydrated; no signs of volume overload.
Initially was given fluid, then converts improved, fluids
Resumed Lasix.
Echocardiogram as above.
Hyponatremia.
Improved but then worsening again
1500 cc fluid restriction
Continue to monitor
CODE STATUS: Full code
DVT prophylaxis: Eliquis.
Diet: Regular diet
Disposition: Overall improving.
Medically cleared to discharge to rehab
Total time spent on today's encounter was 40 minutes which included time spent in counseling the patient/family regarding diagnosis and treatment plan as listed above, goals of care, and symptom management. Case was discussed with nursing staff,
specialists, and care coordinators/case management. All labs and imaging personally reviewed by me. Remainder the time spent in detailed review of previous records, lab data, imaging, and other medical provider documentation.
Anticipated Discharge: Today
Discharge Plan
-
Patient Disposition: Senior Care/SNF
Discharge Diagnosis/Procedures: Sepsis with acute organ dysfunction secondary Community-Acquired Pneumonia
Acute organ dysfunction forme of acute Kidney Injury (DANAY)
Acute hypoxic respiratory failure
Acute Kidney Injury
Chronic Obstructive Pulmonary Disease (COPD)
Chronic combined systolic and diastolic CHF
Diet: As tolerated, Regular and Restrict fluids to 64 oz
Blood Work: Repeat BMP on Monday 08/20
Other Services: PT and OT
Referrals:
Diana Bone MD [Family Provider, Internal Medicine]
Ruiz Mccord MD [Active, Cardiology] - 08/22/25 1:20 pm
Referral Note: You have cardiology follow-up with Dr. Mccord on August 22 at 1:20 PM in [address] [facility]. If you are unable to make this appointment please call [phone] to reschedule.
Prescriptions:
New
cefdinir 300 mg capsule
300 mg PO BID 3 Days Qty: 6 0RF
Continued
alendronate 70 MG tablet
70 mg PO SA
cholecalciferol (vitamin D3) 50 mcg (2,000 unit) Tablet
50 mcg PO DAILY
atorvastatin 40 MG tablet
40 mg PO DAILY
furosemide 40 mg Tablet
20 mg PO DAILY
carvedilol 3.125 mg Tablet
3.125 mg PO BID
albuterol sulfate 90 mcg/actuation Hfa Aerosol Inhaler
2 inh INHALATION R QIDPRN PRN (Reason: sob)
umeclidinium-vilanterol [Anoro Ellipta] 62.5-25 mcg/actuation Blister With Device
1 inh INHALATION R DAILY@1300
Eliquis 2.5 mg tablet
2.5 mg PO BID
acetaminophen 325 mg Tablet
650 mg PO Q4HPRN PRN (Reason: mild pain/COPE/temp> 100.4F) Qty: 10 0RF
phenylephrine-guaifenesin 2.5-100 mg/5 mL Liquid
20 ml PO QPM
Discharge Orders:
Discharge Patient (As Directed); Ordered 08/17/25
Ordered By: Demetrius Bergeron
Discharge Date and Time
Print Language: SYRIAC
--- NOTE | 2025-08-17 15:30 | CM ---
Addendum entered by Lucina Marquez 08/17/25 16:13:
Ambulance picker and sorter load and unload scheduled for 8:00 PM; son and facility notified
Original Note:
Availity initiated [employer] Auth
Auth # [id number]
Start date 08/17/25, NRD 08/23/25
updates to
Plan: Discharge to [facility] today via ambulance
[2025-08-17] MEDS: STERILE WATER FOR INJECTION 10 ML IV (16:15)
[2025-08-17] MEDS: ROCEPHIN 1000 MG IV (16:15)
[2025-08-17] MEDS: ZITHROMAX INFUSION 250 IV (16:16)
--- NOTE | 2025-08-17 19:18 | PTCARENOTE ---
Pt. discharged at this time. IV removed. Tele monitor removed. Pt. taken by ambulance to [facility].
[2025-08-17 19:19] VITALS: BP 114/67
== END 2025-08-17 19:22 | DRG 871 ==
LOC: 4 WEST ACU 22:14
PROVIDERS: Emergency Medicine; ADMITTING PHYSICIAN Internal Medicine; ATTENDING PHYSICIAN General Practice; EMERGENCY PHYSICIAN Student in an Organized Health Care Education/Training Program; FAMILY PHYSICIAN Emergency Medicine; OTHER PHYSICIAN Nuclear Medicine Nuclear Cardiology
DX: A41.9 Sepsis, unspecified organism (principal); J18.9 Pneumonia, unspecified organism; J96.01 Acute respiratory failure with hypoxia; N17.9 Acute kidney failure, unspecified; I5A Non-ischemic myocardial injury (non-traumatic); J44.0 Chronic obstructive pulmonary disease with (acute) lower respiratory infection; E87.1 Hypo-osmolality and hyponatremia; I50.42 Chronic combined systolic (congestive) and diastolic (congestive) heart failure; I48.21 Permanent atrial fibrillation; Z87.891 Personal history of nicotine dependence; R65.20 Severe sepsis without septic shock; I11.0 Hypertensive heart disease with heart failure; Z79.01 Long term (current) use of anticoagulants; Z79.899 Other long term (current) drug therapy
CPT/HCPCS: 71045; 80048; 80053; 81003; 81015; 82550; 83605; 83735; 84484; 85025; 85027; 87040; 87077; 87086; 87186; 87449; 87502; 87811; 87899; 93005; 93306; 94640; 96360; 96361; 97163; 97167; 97530; 97535; 99285